=== PATIENT | male | born 1960 | race Caucasian/White ===

== ENCOUNTER → 2017-08-18 13:00 | Day surgery (SDC) | payer OTHER, SELFPAY ==
[2017-08-18 13:43] VITALS: BP 131/84; PULSE 60; RESP 18; TEMP 36.8; O2SAT 95; BMI 26.5
[2017-08-18 14:09] VITALS: BP 147/87; PULSE 65; RESP 18; O2SAT 96
[2017-08-18 14:10] VITALS: BP 139/74; PULSE 64; RESP 18
--- NOTE | 2017-08-18 14:15 | HMH.PMPROC ---
- Procedure Date: 08/18/17 Time: 14:15 Anesthesiologist:: Javier Hernandez MD Complications:: None Pre-procedure Diagnosis:: Degenerative disc disease of lumbar spine multiple levels with lumbar postlaminectomy syndrome Post-procedure Diagnosis:: Same Indications for Procedure:: Patient is a pleasant 57-year-old white male who we are treating for low back pain with lumbar radiculopathy symptoms and postlaminectomy syndrome. He has an intrathecal morphine pain pump currently going at 3.75 mg per day. He is doing well with his pump. However he has had some increasing hip and leg pain. He has increased radicular symptoms in the right hip and right leg radiating the right ankle. We have with a lumbar MRI. He did have his MRI today. We will follow-up on his MRI and refill his pain pump today. He does have an antalgic gait. Motor strength of the lower extremities is 5/5. There is no gross sensory deficit. Procedure Details:: Pump Refill Informed consent was obtained and the risks and benefits of the procedure was explained to the patient. The patient was taken to the procedure room. The pump was interrogated. The area over the pump was prepped using ChloraPrep. The pump was accessed with a 22-gauge needle. Approximately 6 mL's of the intrathecal solution was withdrawn and discarded. The pump was then refilled with 20 mL's of intrathecal morphine 25 mg per ml. The pump was interrogated and the infusion was continued at 3.75 mg/day. The patient tolerated the procedure well with no complication. Plan and Disposition:: We will follow-up on his MRI and see him back in 2 weeks to reassess his symptoms. We will also refill his gabapentin 600 mg 1 tablet 3 times a day. I will give him 3 refills on his gabapentin.
[2017-08-18 14:22] VITALS: BP 147/93; PULSE 63; RESP 18; TEMP 36.8; O2SAT 99
== END ==
PROVIDERS: Family Provider Family Medicine; PCP Family Medicine; Visit Provider Anesthesiology
DX: M51.16 Intervertebral disc disorders with radiculopathy, lumbar region (principal); M96.1 Postlaminectomy syndrome, not elsewhere classified
CPT/HCPCS: 95991

== ENCOUNTER → 2017-09-11 13:41 | Outpatient (POV) | payer OTHER, SELFPAY ==
[2017-09-11 14:45] VITALS: BP 149/98; PULSE 71; RESP 18; O2SAT 97; BMI 29.0
--- NOTE | 2017-09-11 14:58 | P.CONS_ITS ---
[facility] Pain Management SOAP Note Subjective:: This patient is a pleasant 57-year-old white male who we previously been treating for low back pain with lumbar radiculopathy symptoms and postlaminectomy syndrome. He currently has an intrathecal morphine pain pump going at 3.75 mg per day. He recently had an MRI because he is having some increasing low back pain. His MRI is essentially unchanged. He does show previous laminectomies at L3, L4 and L5. He does not have any acute process other than worsening of his degenerative arthritis. He does have tenderness over both SI joints with some radiation into the groin. I do believe that he would benefit from bilateral SI joint injections under fluoroscopy. He does have positive Lima's test bilaterally. Objective:: Alert and oriented ?3 in no acute distress. Patient has an antalgic gait. Tenderness over both SI joints. Positive Lima's test bilaterally. Motor strength of the lower extremities is 5/5. There is no sensory deficit. Assessment:: Degenerative disc disease of lumbar spine with lumbar radiculopathy symptoms and postlaminectomy syndrome. Bilateral sacroiliitis Plan:: We will seek approval and plan on bilateral SI joint injections under fluoroscopy. We will keep his intrathecal morphine pain pump at 3.75 mg per day. Will follow up with him after these injections.
== END ==
PROVIDERS: Family Provider Family Medicine; PCP Family Medicine; Visit Provider Anesthesiology
DX: M54.16 Radiculopathy, lumbar region (principal); M46.1 Sacroiliitis, not elsewhere classified
CPT/HCPCS: 99212

== ENCOUNTER 2017-09-20 12:47 | Day surgery (SDC) | payer OTHER, SELFPAY ==
[2017-09-20 13:36] VITALS: BP 146/80; PULSE 62; RESP 18; TEMP 36.7; O2SAT 98; BMI 29.8
[2017-09-20 13:43] LABS: POC Glucose,Bedside 144 mg/dL (70-110)
[2017-09-20 13:58] VITALS: BP 167/69; PULSE 62; RESP 18
[2017-09-20 13:59] VITALS: BP 165/70; PULSE 65; RESP 20
--- NOTE | 2017-09-20 14:02 | HMH.PMPROC ---
- Procedure Date: 09/20/17 Time: 14:02 Anesthesiologist:: Javier Hernandez MD Complications:: None Pre-procedure Diagnosis:: Sacroiliitis Post-procedure Diagnosis:: Same Indications for Procedure:: This patient is a pleasant 57-year-old white male who we have been treating for low back pain with lumbar radiculopathy symptoms and postlaminectomy syndrome. He currently has an intrathecal morphine pain pump in place. He is doing well with his pain pump. He has developed pain over both hips. He is tender over both SI joints. He does have a positive Lima's test bilaterally. We will do bilateral SI joint injections under fluoroscopy today. Procedure Details:: B/L SI joint injection under fluoroscopy Informed consent was obtained and the risks and benefits of the procedure was explained to the patient. The patient was taken to the procedure room and placed prone on the procedure table. The patient was prepped using ChloraPrep. The skin and subcutaneous tissues overlying the SI joints were anesthetized using lidocaine. I placed a 22-gauge needle first in the left SI joint and second in the right SI joint. Needle placement was confirmed with dye. After this we injected 5 mL bupivacaine 0.25% and Depo-Medrol 40 mg into each SI joint. Patient tolerated the procedure well with no complication. Plan and Disposition:: We will follow-up with him in 2 weeks. We will reevaluate his symptoms at that time.
[2017-09-20 16:55] VITALS: BP 144/85; PULSE 60; RESP 16; O2SAT 97
== END 2017-09-20 14:07 | disposition home or self-care (01) ==
PROVIDERS: Family Provider Family Medicine; PCP Family Medicine; Visit Provider Anesthesiology
DX: M46.1 Sacroiliitis, not elsewhere classified (principal)
CPT/HCPCS: 27096; 82962; G0260; J1030; Q9966

== ENCOUNTER → 2017-10-10 10:36 | Outpatient (POV) | payer OTHER, SELFPAY ==
[2017-10-10 10:54] VITALS: BP 164/90; PULSE 61; RESP 20; BMI 29.9
--- NOTE | 2017-10-10 12:37 | HMH.PAINSOAP ---
[facility] Pain Management SOAP Note Subjective:: Is a very pleasant 57-year-old white male who we have been treating for low back pain with lumbar radiculopathy symptoms and postlaminectomy syndrome. He currently has an intrathecal morphine pain pump going at 3.75 mg a day. He following up after bilateral SI joint injections. He said the right side has significantly improved however the left side is about the same. Patient is interested in weaning down on his intrathecal pain pump due to liver issues along with low testosterone. Patient is also interested in using a neurostimulator for improved pain relief of his bilateral lower leg pain. ROS General: no recent weight change, no fever, no sleep disturbances Respiratory: no cough, no shortness of air, no recurring pulmonary infections Cardiovascular/Peripheral Vascular: No chest pain, No palpitations, no edema, no shortness of breath. Gastrointestinal: no incontinence, normal bowel movements reported Genitourinary: no incontinence Musculoskeletal: Back pain, bilateral leg pain, bilateral SI joint pain Psychiatric: normal mood/ affect, [denies depression], [denies anxiety] Neurological: [denies weakness in extremities], [denies balance issues] Objective:: Physical Exam General: Alert and oriented x3, no acute distress, pleasant and cooperative, [on room air] Lungs: Resps E/U, Symmetrical chest expansion, Eyes: PERRL Musculoskeletal: Flexion and extension of lumbar spine somewhat guarded secondary to pain, deep tendon reflexes normal, strength in upper and lower extremities [5/5], antalgic gait noted, bilateral Lima's test positive., Straight leg raise test positive bilaterally at 30?. Neurological: speech clear, five piece expansion maker hand equal, no gross sensory deficits Assessment:: Degenerative disc disease of the lumbar spine with lumbar radiculopathy, sacroiliitis, postlaminectomy syndrome Plan:: We will send this patient to Dr. Gunn for psychological evaluation for a stimulator trial. We will also ask Dr. Gunn presents with a potential opioid reset program so we can begin to wean the patient's pump. We will wean the patient's pump and may be utilized Prialt in the pump after he has been taken off of the medication. Patient and I had a long discussion about this. We will set him up for a neurostimulator trial. As tried and failed medications, anti-inflammatories, physical therapy, and injective therapy. Patient is not on any anticoagulation therapy. This note was dictated using voice recognition software and may contain errors or omissions
--- NOTE | 2017-10-10 12:41 | P.CONS_ITS ---
[facility] Pain Management SOAP Note Subjective:: Is a very pleasant 57-year-old white male who we have been treating for low back pain with lumbar radiculopathy symptoms and postlaminectomy syndrome. He currently has an intrathecal morphine pain pump going at 3.75 mg a day. He following up after bilateral SI joint injections. He said the right side has significantly improved however the left side is about the same. Patient is interested in weaning down on his intrathecal pain pump due to liver issues along with low testosterone. Patient is also interested in using a neurostimulator for improved pain relief of his bilateral lower leg pain. ROS General: no recent weight change, no fever, no sleep disturbances Respiratory: no cough, no shortness of air, no recurring pulmonary infections Cardiovascular/Peripheral Vascular: No chest pain, No palpitations, no edema, no shortness of breath. Gastrointestinal: no incontinence, normal bowel movements reported Genitourinary: no incontinence Musculoskeletal: Back pain, bilateral leg pain, bilateral SI joint pain Psychiatric: normal mood/ affect, [denies depression], [denies anxiety] Neurological: [denies weakness in extremities], [denies balance issues] Objective:: Physical Exam General: Alert and oriented x3, no acute distress, pleasant and cooperative, [ on room air] Lungs: Resps E/U, Symmetrical chest expansion, Eyes: PERRL Musculoskeletal: Flexion and extension of lumbar spine somewhat guarded secondary to pain, deep tendon reflexes normal, strength in upper and lower extremities [5/5], antalgic gait noted, bilateral Lima's test positive., Straight leg raise test positive bilaterally at 30?. Neurological: speech clear, social work program coordinator equal, no gross sensory deficits Assessment:: Degenerative disc disease of the lumbar spine with lumbar radiculopathy, sacroiliitis, postlaminectomy syndrome Plan:: We will send this patient to Dr. Gunn for psychological evaluation for a stimulator trial. We will also ask Dr. Gunn presents with a potential opioid reset program so we can begin to wean the patient's pump. We will wean the patient's pump and may be utilized Prialt in the pump after he has been taken off of the medication. Patient and I had a long discussion about this. We will set him up for a neurostimulator trial. As tried and failed medications, anti-inflammatories, physical therapy, and injective therapy. Patient is not on any anticoagulation therapy. This note was dictated using voice recognition software and may contain errors or omissions
== END ==
PROVIDERS: Family Provider Family Medicine; PCP Family Medicine; Visit Provider Clinical Nurse Specialist Family Health
DX: M54.16 Radiculopathy, lumbar region (principal)
CPT/HCPCS: 99212

== ENCOUNTER → 2018-09-04 08:47 | Outpatient (POV) | payer OTHER, SELFPAY ==
[2018-09-04 09:04] VITALS: BP 143/92; PULSE 64; RESP 18; O2SAT 98; BMI 29.0
--- NOTE | 2018-09-04 09:19 | HMH.PMPROC ---
- Procedure Date: 09/04/18 Time: 09: Anesthesiologist:: Mihaela Gilmore APRN Complications:: None Pre-procedure Diagnosis:: Degenerative disc disease lumbar spine with lumbar radiculopathy Post-procedure Diagnosis:: Same Indications for Procedure:: Patient is a pleasant 58-year-old white male who presents today for intrathecal pain pump reprogram. Patient is decreasing his morphine infusion with the hope to be weaned off. Patient is currently at 2.7 mg a day. He rates his pain a 3 out of 10. We will decrease him to 2 mg/day. Patient is having some extra numbness and tingling in his legs. Patient is currently on gabapentin 600 mg 1 p.o. 3 times daily. He is also on Cymbalta 30 mg. We discussed him increasing this to 60 mg. Patient can talk to his primary care physician about this. Physical Exam General: Alert and oriented x3, no acute distress, pleasant and cooperative, [on room air] Lungs: Resps E/U, Symmetrical chest expansion, Eyes: PERRL Musculoskeletal: Flexion and extension of lumbar spine somewhat guarded secondary to pain, deep tendon reflexes normal, strength in upper and lower extremities [5/5], slightly antalgic gait noted Neurological: speech clear, product safety manager equal, no gross sensory deficits Procedure Details:: Informed consent was obtained and the risk and benefits of the procedure were explained to the patient. The patient was taken to the procedure room where noninvasive monitoring was placed including noninvasive blood pressure cuff and pulse oximeter. Patient's pump was interrogated and reprogrammed. The infusion rate was decreased to 2 mg of morphine a day. The patient tolerated the procedure well. Plan and Disposition:: I will follow-up with the patient in 1 month and reassess his symptoms at that time we will decrease him even further to 1.5 mg/day. Patient is been instructed to call the office if he has any issues prior to his next appointment. Dr. Hernandez has reviewed this note and agrees with this plan of care. This note was dictated using voice recognition software and may contain errors or omissions
--- NOTE | 2018-10-03 11:50 | PC.NURSE ---
refills for Gabapentin 600mg tid with 2 refills faxed to [facility] per provider order
== END ==
PROVIDERS: PCP Family Medicine; Visit Provider Clinical Nurse Specialist Family Health
DX: M51.16 Intervertebral disc disorders with radiculopathy, lumbar region (principal)
CPT/HCPCS: 62368

== ENCOUNTER → 2018-10-09 09:12 | Outpatient (POV) | payer OTHER, SELFPAY ==
[2018-10-09 09:39] VITALS: BP 146/86; PULSE 64; RESP 18; O2SAT 98; BMI 29.0
--- NOTE | 2018-10-09 09:44 | P.PCN_ITS ---
- Procedure Date: 10/09/18 Time: 09:42 Anesthesiologist:: Mihaela Gilmore APRN Complications:: None Pre-procedure Diagnosis:: Degenerative disc disease lumbar spine with lumbar radiculopathy Post-procedure Diagnosis:: Same Indications for Procedure:: the patient is a pleasant 58-year-old white male who presents today for intrathecal pain pump reprogram. Patient is decreasing his morphine infusion with hopes of being weaned off. He is currently out of 2 mg a day and rates his pain a 5 out of 10. Patient is currently on gabapentin we discussed increasing his Cymbalta at his last visit however hit him and his primary care and get a hold off on this at this time. Physical Exam General: Alert and oriented x3, no acute distress, pleasant and cooperative, [on room air] Lungs: Resps E/U, Symmetrical chest expansion, Eyes: PERRL Musculoskeletal: Flexion and extension of lumbar spine somewhat guarded secondary to pain, deep tendon reflexes normal, strength in upper and lower extremities [5/5], [abnormal gait noted] Neurological: speech clear, cash management associate equal, no gross sensory deficits Procedure Details:: Informed consent was obtained and the risk and benefits of the procedure were explained to the patient. The patient was taken to the procedure room where noninvasive monitoring was placed including noninvasive blood pressure cuff and pulse oximeter. Patient's pump was interrogated and reprogrammed. The infusion rate was decreased to 1.5 mg of morphine a day. The patient tolerated the procedure well. Plan and Disposition:: I will see the patient back in 1 month and we can decrease him at that time to 1 mg a day. Patient's been instructed to call the office if he has any issues prior to his next appointment. Dr. Hernandez has reviewed this note and agrees with this plan of care. This note was dictated using voice recognition software and may contain errors or omissions
== END ==
PROVIDERS: PCP Family Medicine; Visit Provider Clinical Nurse Specialist Family Health
DX: M51.16 Intervertebral disc disorders with radiculopathy, lumbar region (principal)
CPT/HCPCS: 62368

== ENCOUNTER → 2018-11-05 09:01 | Outpatient (POV) | payer OTHER, SELFPAY ==
[2018-11-05 09:10] VITALS: BP 145/79; PULSE 66; RESP 18; O2SAT 98; BMI 29.0
--- NOTE | 2018-11-05 09:21 | HMH.PAINSOAP ---
[facility] Pain Management SOAP Note Subjective:: he is a pleasant 58-year-old white male who presents today for intrathecal pain pump reprogram. Patient is not doing as well has he has been. Patient states his pain is the same but it is just intensified. Patient is now down to 1.5 mg a day of morphine. Patient and I discussed how to move forward. Patient is having difficulty sleeping. He rates his pain a 6 out of 10. Mostly in his low back and down his leg. Patient's ultimate goal is to have a stimulator due to side effects in regards to his pain pump. ROS General: no recent weight change, no fever, no sleep disturbances Respiratory: no cough, no shortness of air, no recurring pulmonary infections Cardiovascular/Peripheral Vascular: No chest pain, No palpitations, no edema, no shortness of breath. Gastrointestinal: no incontinence, normal bowel movements reported Genitourinary: no incontinence Musculoskeletal: Back pain, leg pain Psychiatric: normal mood/ affect Neurological: [denies weakness in extremities], [denies balance issues] Objective:: Physical Exam General: Alert and oriented x3, no acute distress, pleasant and cooperative, [on room air] Lungs: Resps E/U, Symmetrical chest expansion, Eyes: PERRL Musculoskeletal: Flexion and extension of lumbar spine somewhat guarded secondary to pain, deep tendon reflexes normal, strength in upper and lower extremities [5/5], positive straight leg raise test on the right side at 30 degrees Neurological: speech clear, mathematical engineer equal, no gross sensory deficits Assessment:: degenerative disc disease lumbar spine with lumbar radiculopathy Plan:: We will set the patient up for a L4-L5 lumbar epidural steroid injection given his increased pain. Will call in Flexeril 10 mg 1 p.o. nightly. We will also potentially discuss the neurostimulator trial since he is having side effects to his pain pump and it needs to be removed. I believe the stimulator may be beneficial in the process of weaning him off of his pump. Patient is on Plavix we will see if he can come off of this prior to his injection. Dr. Hernandez has reviewed this note and agrees with this plan of care. This note was dictated using voice recognition software and may contain errors or omissions
--- NOTE | 2018-11-05 09:25 | P.CONS_ITS ---
[facility] Pain Management SOAP Note Subjective:: he is a pleasant 58-year-old white male who presents today for intrathecal pain pump reprogram. Patient is not doing as well has he has been. Patient states his pain is the same but it is just intensified. Patient is now down to 1.5 mg a day of morphine. Patient and I discussed how to move forward. Patient is having difficulty sleeping. He rates his pain a 6 out of 10. Mostly in his low back and down his leg. Patient's ultimate goal is to have a stimulator due to side effects in regards to his pain pump. ROS General: no recent weight change, no fever, no sleep disturbances Respiratory: no cough, no shortness of air, no recurring pulmonary infections Cardiovascular/Peripheral Vascular: No chest pain, No palpitations, no edema, no shortness of breath. Gastrointestinal: no incontinence, normal bowel movements reported Genitourinary: no incontinence Musculoskeletal: Back pain, leg pain Psychiatric: normal mood/ affect Neurological: [denies weakness in extremities], [denies balance issues] Objective:: Physical Exam General: Alert and oriented x3, no acute distress, pleasant and cooperative, [on room air] Lungs: Resps E/U, Symmetrical chest expansion, Eyes: PERRL Musculoskeletal: Flexion and extension of lumbar spine somewhat guarded sec ondary to pain, deep tendon reflexes normal, strength in upper and lower extremities [5/5], positive straight leg raise test on the right side at 30 degrees Neurological: speech clear, automotive glass technician equal, no gross sensory deficits Assessment:: degenerative disc disease lumbar spine with lumbar radiculopathy Plan:: We will set the patient up for a L4-L5 lumbar epidural steroid injection given his increased pain. Will call in Flexeril 10 mg 1 p.o. nightly. We will also potentially discuss the neurostimulator trial since he is having side effects to his pain pump and it needs to be removed. I believe the stimulator may be beneficial in the process of weaning him off of his pump. Patient is on Plavix we will see if he can come off of this prior to his injection. Dr. Hernandez has reviewed this note and agrees with this plan of care. This note was dictated using voice recognition software and may contain errors or omissions
--- NOTE | 2018-11-08 14:54 | PC.NURSE ---
SPOKE WITH SOFIA FROM DR AVERY'S OFFICE. PT IS NOT CLEARED TO COME OFF OF HIS PLAVIX AT THIS TIME. MD WOULD PREFER HE BE ON PLAVIX ONE YEAR PRIOR TO EPIDURAL INJECTION.
--- NOTE | 2019-04-08 11:45 | PC.NURSE ---
FLEXERIL 10MG QHS, GABAPENTIN 600MG TID WITH 2 REFILLS FAXED TO [facility] PER PROVIDER ORDER
== END ==
PROVIDERS: PCP Family Medicine; Visit Provider Clinical Nurse Specialist Family Health
DX: M51.16 Intervertebral disc disorders with radiculopathy, lumbar region (principal)
CPT/HCPCS: 62368

== ENCOUNTER 2018-11-27 12:51 | Day surgery (SDC) | payer OTHER, SELFPAY ==
[2018-11-27 13:05] VITALS: BP 158/84; PULSE 51; RESP 18; O2SAT 97; BMI 29.0
[2018-11-27 13:17] VITALS: BP 144/80; PULSE 65; RESP 18; O2SAT 98
[2018-11-27 13:18] VITALS: BP 145/87; PULSE 64; RESP 18; O2SAT 99
--- NOTE | 2018-11-27 13:21 | HMH.PMPROC ---
- Procedure Date: 11/27/18 Time: 13:21 Anesthesiologist:: Mihalea Gilmore APRN Complications:: None Pre-procedure Diagnosis:: Degenerative disc disease with lumbar radiculopathy Post-procedure Diagnosis:: Same Indications for Procedure:: Patient is a pleasant 58-year-old white male who presents today for intrathecal pain pump refill and reprogram. We were weaning him off of his pain pump for neurostimulator however he is unable to come off of his Plavix for at least a year before we can do a stimulator trial. Patient is having increased pain we will increase his pain pump today. He is currently on 1.5 mg a day morphine infusion. Patient is not having any side effects. Patient [facility] #[id number] reviewed and appropriate. He is also on gabapentin 600 mg 1 p.o. 3 times daily. Physical Exam General: Alert and oriented x3, no acute distress, pleasant and cooperative, [on room air] Lungs: Resps E/U, Symmetrical chest expansion, Eyes: PERRL Musculoskeletal: Flexion and extension of lumbar spine somewhat guarded secondary to pain, deep tendon reflexes normal, strength in upper and lower extremities [5/5], [abnormal gait noted] Neurological: speech clear, director of assessment equal, no gross sensory deficits Procedure Details:: Informed consent was obtained and the risk and benefits of the procedure were explained to the patient. The patient was taken to the procedure room where noninvasive monitoring was placed including noninvasive blood pressure cuff and pulse oximeter. Patient's pump was interrogated. The area over the pump was cleansed with chlorhexidine as a cleansing solution. In sterile fashion the pump was accessed with a 22-gauge needle. Approximately 10 mL's were removed of the pump solution and discarded appropriately. The pump was then refilled with 20 mL's of morphine 25 mg/mL. The needle was withdrawn and a bandage was placed over the puncture site. The infusion rate was reprogrammed to 2 mg/day. The patient tolerated the procedure well. Plan and Disposition:: I will plan on seeing the patient back at his next intrathecal pain pump refill and reprogram his been instructed to call the office if he has any issues prior to his next appointment. Dr. Hernandez has reviewed this note and agrees with this plan of care. This note was dictated using voice recognition software and may contain errors or omissions
--- NOTE | 2018-11-27 13:24 | P.PCN_ITS ---
- Procedure Date: 11/27/18 Time: 13:21 Anesthesiologist:: Mihaela Gilmore APRN Complications:: None Pre-procedure Diagnosis:: Degenerative disc disease with lumbar radiculopathy Post-procedure Diagnosis:: Same Indications for Procedure:: Patient is a pleasant 58-year-old white male who presents today for intrathecal pain pump refill and reprogram. We were weaning him off of his pain pump for neurostimulator however he is unable to come off of his Plavix for at least a year before we can do a stimulator trial. Patient is having increased pain we will increase his pain pump today. He is currently on 1.5 mg a day morphine infusion. Patient is not having any side effects. Patient [facility] [place] #[id number] reviewed and appropriate. He is also on gabapentin 600 mg 1 p.o. 3 times daily. Physical Exam General: Alert and oriented x3, no acute distress, pleasant and cooperative, [on room air] Lungs: Resps E/U, Symmetrical chest expansion, Eyes: PERRL Musculoskeletal: Flexion and extension of lumbar spine somewhat guarded secondary to pain, deep tendon reflexes normal, strength in upper and lower extremities [5/5], [abnormal gait noted] Neurological: speech clear, robotics software engineer equal, no gross sensory deficits Procedure Details:: Informed consent was obtained and the risk and benefits of the procedure were explained to the patient. The patient was taken to the procedure room where noninvasive monitoring was placed including noninvasive blood pressure cuff and pulse oximeter. Patient's pump was interrogated. The area over the pump was cleansed with chlorhexidine as a cleansing solution. In sterile fashion the pump was accessed with a 22-gauge needle. Approximately 10 mL's were removed of the pump solution and discarded appropriately. The pump was then refilled with 20 mL's of morphine 25 mg/mL. The needle was withdrawn and a bandage was placed over the puncture site. The infusion rate was reprogrammed to 2 mg/day. The patient tolerated the procedure well. Plan and Disposition:: I will plan on seeing the patient back at his next intrathecal pain pump refill and reprogram his been instructed to call the office if he has any issues prior to his next appointment. Dr. Hernandez has reviewed this note and agrees with this plan of care. This note was dictated using voice recognition software and may contain errors or omissions
[2018-11-27 13:28] VITALS: BP 137/74; PULSE 64; RESP 18; O2SAT 97
== END 2018-11-27 13:29 | disposition home or self-care (01) ==
LOC: SC.PAINP 12:52
PROVIDERS: PCP Family Medicine; Visit Provider Clinical Nurse Specialist Family Health
DX: M51.16 Intervertebral disc disorders with radiculopathy, lumbar region (principal)
CPT/HCPCS: 62370

== ENCOUNTER → 2019-04-02 10:47 | Outpatient (CLI) | payer OTHER, SELFPAY ==
[2019-04-02 14:17] LABS: Amphetamine/Metha Screen,Urine Negative ng/mL (<1000); Barbiturates Screen,Urine Negative ng/mL (<200); Benzodiazepines Screen,Urine Negative ng/mL (<200); Cannabinoid Screen,Urine Negative ng/mL (<50); Cocaine Screen,Urine Negative ng/mL (<300); Methadone Screen,Urine Negative ng/mL (<300); Opiate Screen,Urine Positive ng/mL (<300); Phencyclidine Screen,Urine Negative ng/mL (<25)
[2019-04-07 09:24] LABS: Codeine Negative (Cutoff=100); Hydrocodone Negative (Cutoff=100); Hydromorphone Negative (Cutoff=100); Morphine Positive (.)
[2019-04-07 17:19] LABS: Opiates Positive (.)
== END ==
PROVIDERS: Visit Provider Clinical Nurse Specialist Family Health
DX: Z79.899 Other long term (current) drug therapy (principal)
CPT/HCPCS: 80305; 80361; 80365; G0480

== ENCOUNTER 2019-11-12 12:57 | Day surgery (SDC) | payer OTHER, SELFPAY ==
[2019-11-12 13:14] VITALS: BP 126/75; PULSE 76; RESP 18; O2SAT 98; BMI 29.0
[2019-11-12 13:32] VITALS: BP 115/71; PULSE 72; RESP 18
[2019-11-12 13:33] VITALS: BP 118/85; PULSE 70; RESP 18; TEMP 36.8; O2SAT 98
--- NOTE | 2019-11-12 13:42 | P.PCN_ITS ---
- Procedure Date: 11/12/19 Time: 13:42 Anesthesiologist:: Mihaela Gilmore APRN Complications:: None Pre-procedure Diagnosis:: Degenerative disc disease lumbar spine with lumbar radiculopathy, postlaminectomy syndrome, failed back syndrome Post-procedure Diagnosis:: Same Indications for Procedure:: Patient is a pleasant 59-year-old white male who presents today for intrathecal pain pump refill and reprogram. He has low back pain secondary to failed back syndrome. Patient does have an intrathecal pain pump however it stopped decreasing and taking care of all of his pain. His pain is gotten worse and worse. He is done physical therapy. He is interested in a neurostimulator which I do believe would be beneficial he has been on Plavix and can come off of this prior to trial. He is currently on a morphine infusion of 2.5 mg/day however he needs an increase today [facility] reviewed and appropriate. [facility] #[id number]. Physical Exam General: Alert and oriented x3, no acute distress, pleasant and cooperative, [on room air] Lungs: Resps E/U, Symmetrical chest expansion, Eyes: PERRL Musculoskeletal: Flexion and extension of lumbar spine somewhat guarded secondary to pain, deep tendon reflexes normal, strength in upper and lower extremities [5/5], [abnormal gait noted] Neurological: speech clear, food and beverage attendant equal, no gross sensory deficits Procedure Details:: Informed consent was obtained and the risk and benefits of the procedure were explained to the patient. The patient was taken to the procedure room where noninvasive monitoring was placed including noninvasive blood pressure cuff and pulse oximeter. Patient's pump was interrogated. The area over the pump was cleansed with chlorhexidine as a cleansing solution. In sterile fashion the pump was accessed with a 22-gauge needle. Approximately 8.5 mL's were removed of the pump solution and discarded appropriately. The pump was then refilled with 20 mL's of morphine 25 mg/mL. The needle was withdrawn and a bandage was placed over the puncture site. The infusion rate was reprogrammed to 3 mg of morphine a day. The patient tolerated the procedure well. Plan and Disposition:: We will set the patient up for a neurostimulator trial I will follow-up with him after this reassess his symptoms at that time he has been instructed to call the office if he has any issues prior to his next appointment. Dr. Hernandez has reviewed this note and agrees with this plan of care. This note was dictated using voice recognition software and may contain errors or omissions
[2019-11-12 13:47] VITALS: BP 116/72; PULSE 71; RESP 18; O2SAT 98
== END 2019-11-12 13:50 | disposition home or self-care (01) ==
LOC: SC.PAINP 12:58
PROVIDERS: PCP Family Medicine; Visit Provider Clinical Nurse Specialist Family Health
DX: M51.16 Intervertebral disc disorders with radiculopathy, lumbar region (principal); M96.1 Postlaminectomy syndrome, not elsewhere classified; Z87.39 Personal history of other diseases of the musculoskeletal system and connective tissue
CPT/HCPCS: 62370

== ENCOUNTER 2020-03-23 14:40 | Day surgery (SDC) | payer OTHER, SELFPAY ==
[2020-03-23 14:48] VITALS: BP 141/76; PULSE 64; RESP 19; TEMP 36.7; O2SAT 99; BMI 29.0
[2020-03-23 15:09] VITALS: BP 115/72; PULSE 62; RESP 18; O2SAT 98
--- NOTE | 2020-03-23 15:11 | HMH.PMPROC ---
- Procedure Date: 03/23/20 Time: 15:11 Anesthesiologist:: Mihaela Gilmore APRN Complications:: None Pre-procedure Diagnosis:: Degenerative disc disease lumbar spine lumbar radiculopathy Post-procedure Diagnosis:: Same Indications for Procedure:: Patient is a pleasant 59-year-old white male who presents today for intrathecal pain pump refill and reprogram. He is currently on morphine 3 mg/day. He denies side effects with medication. Patient's [facility] reviewed and appropriate. Drug screens have been appropriate. Patient rates his pain today 4 out of 10. Physical Exam General: Alert and oriented x3, no acute distress, pleasant and cooperative, [on room air] Lungs: Resps E/U, Symmetrical chest expansion, Eyes: PERRL Musculoskeletal: Flexion and extension of lumbar spine somewhat guarded secondary to pain, deep tendon reflexes normal, strength in upper and lower extremities [5/5], [abnormal gait noted] Neurological: speech clear, milling supervisor equal, no gross sensory deficits Procedure Details:: Informed consent was obtained and the risk and benefits of the procedure were explained to the patient. The patient was taken to the procedure room where noninvasive monitoring was placed including noninvasive blood pressure cuff and pulse oximeter. Patient's pump was interrogated. The area over the pump was cleansed with chlorhexidine as a cleansing solution. In sterile fashion the pump was accessed with a 22-gauge needle. Approximately 4 mL's were removed of the pump solution and discarded appropriately. The pump was then refilled with 20 mL's of morphine 25 mg/mL. The needle was withdrawn and a bandage was placed over the puncture site. The infusion rate was reprogrammed to continue at 3 mg/day. The patient tolerated the procedure well. Plan and Disposition:: The patient back at his next intrathecal pain pump refill and reprogram he has been instructed to call the office if he has any issues prior to his next appointment. Patient has been on morphine for quite some time we will plan on switching him to Dilaudid 5 mg/mL and start him at 1 mg/day. Dr. Hernandez has reviewed this note and agrees with this plan of care. This note was dictated using voice recognition software and may contain errors or omissions
[2020-03-23 15:20] VITALS: BP 118/75; PULSE 85; RESP 18; O2SAT 98
[2020-03-23 15:35] VITALS: BP 148/79; PULSE 61; RESP 18; O2SAT 99
== END 2020-03-23 15:36 | disposition home or self-care (01) ==
PROVIDERS: PCP Family Medicine; Visit Provider Clinical Nurse Specialist Family Health
DX: M51.16 Intervertebral disc disorders with radiculopathy, lumbar region (principal); I25.10 Atherosclerotic heart disease of native coronary artery without angina pectoris; I10 Essential (primary) hypertension; E78.5 Hyperlipidemia, unspecified; K21.9 Gastro-esophageal reflux disease without esophagitis; F41.9 Anxiety disorder, unspecified; F32.9 Major depressive disorder, single episode, unspecified; Z95.818 Presence of other cardiac implants and grafts; Z88.8 Allergy status to other drugs, medicaments and biological substances; Z79.82 Long term (current) use of aspirin; Z79.899 Other long term (current) drug therapy; Z79.4 Long term (current) use of insulin
CPT/HCPCS: 95991

== ENCOUNTER 2020-06-22 12:55 | Day surgery (SDC) | payer OTHER, SELFPAY ==
[2020-06-22 12:58] VITALS: BP 123/67; PULSE 77; RESP 18; TEMP 36.7; O2SAT 98; BMI 29.0
[2020-06-22 13:05] VITALS: BP 126/64; PULSE 75; RESP 18; TEMP 36.4; O2SAT 100
[2020-06-22 13:18] VITALS: BP 130/78; PULSE 74; RESP 18; O2SAT 100
--- NOTE | 2020-06-22 13:23 | P.PCN_ITS ---
- Procedure Date: 06/22/20 Time: 13:23 Anesthesiologist:: Mihaela Gilmore APRN Complications:: None Pre-procedure Diagnosis:: Degenerative disc disease lumbar spine lumbar radiculopathy Post-procedure Diagnosis:: Same Indications for Procedure:: Patient is a pleasant 59-year-old white male who presents today for intrathecal pain pump refill and reprogram. Patient rates his pain today 5 out of 10. Patient and I discussed at his last visit about switching his morphine to Dilaudid. He would like to move forward with this. Drug screens have been appropriate. [facility] #[id number] reviewed and appropriate. He is also on gabapentin 600 mg 1 p.o. 3 times daily. Physical Exam General: Alert and oriented x3, no acute distress, pleasant and cooperative, [on room air] Lungs: Resps E/U, Symmetrical chest expansion, Eyes: PERRL Musculoskeletal: Flexion and extension of bar spine somewhat guarded secondary to pain, deep tendon reflexes normal, strength in upper and lower extremities [5/5], [abnormal gait noted] Neurological: speech clear, materials planner/production planner equal, no gross sensory deficits Procedure Details:: Informed consent was obtained and the risk and benefits of the procedure were explained to the patient. The patient was taken to the procedure room where noninvasive monitoring was placed including noninvasive blood pressure cuff and pulse oximeter. Patient's pump was interrogated. The area over the pump was cleansed with chlorhexidine as a cleansing solution. In sterile fashion the pump was accessed with a 22-gauge needle. Approximately 9 mL's were removed of the pump solution and discarded appropriately. The pump was then refilled with 20 mL's of hydromorphone 5 mg/mL. The needle was withdrawn and a bandage was placed over the puncture site. The infusion rate was reprogrammed to started at 0.5 milligrams per day. The patient tolerated the procedure well. Plan and Disposition:: I will see the patient back in 2 weeks for any titrations. Patient's been instructed to call the office if he has any issues prior to his next appointment. Dr. Hernandez has reviewed this note and agrees with this plan of care. This note was dictated using voice recognition software and may contain errors or omissions
[2020-06-22 13:35] VITALS: BP 115/66; PULSE 79; RESP 18; O2SAT 98
== END 2020-06-22 13:35 | disposition home or self-care (01) ==
LOC: SC.PAINP 12:57
PROVIDERS: PCP Family Medicine; Visit Provider Clinical Nurse Specialist Family Health
DX: M51.16 Intervertebral disc disorders with radiculopathy, lumbar region (principal); I10 Essential (primary) hypertension; E11.9 Type 2 diabetes mellitus without complications; Z86.73 Personal history of transient ischemic attack (TIA), and cerebral infarction without residual deficits; Z88.8 Allergy status to other drugs, medicaments and biological substances
CPT/HCPCS: 62370

== ENCOUNTER → 2020-07-06 11:33 | Outpatient (POV) | payer OTHER, SELFPAY ==
[2020-07-06 12:14] VITALS: BP 135/88; PULSE 74; RESP 18; TEMP 36.8; O2SAT 98; BMI 29.0
--- NOTE | 2020-07-06 12:40 | P.PCN_ITS ---
- Procedure Date: 07/06/20 Time: 12:40 Anesthesiologist:: Mihaela Gilmore APRN Complications:: None Pre-procedure Diagnosis:: Degenerative disc disease lumbar spine lumbar radiculopathy Post-procedure Diagnosis:: Same Indications for Procedure:: Patient is a pleasant 59-year-old white male who presents today for intrathecal pain pump program. Patient is currently on 0.5 mg of Dilaudid. We will increase him today [facility] reviewed and appropriate. He denies any side effects to his medication. Most of his pain is in his low back and legs. Procedure Details:: Informed consent was obtained and the risk and benefits of the procedure were explained to the patient. The patient was taken to the procedure room where noninvasive monitoring was placed including noninvasive blood pressure cuff and pulse oximeter. Patient's pump was interrogated and reprogrammed. The infusion rate was increased to 0.65 mg of Dilaudid a day. The patient tolerated the pro cedure well. Plan and Disposition:: Patient has 4 months left on his intrathecal pain pump battery life we will set him up with Dr. Priya roche for replacement of system. 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 I told him to discuss this with Dr. Priya roche. Patient's been instructed to call the office if he has any issues prior to his next appointment. Dr. Hernandez has reviewed this note and agrees with this plan of care. This note was dictated using voice recognition software and may contain errors or omissions
== END ==
PROVIDERS: PCP Family Medicine; Visit Provider Clinical Nurse Specialist Family Health
DX: M51.16 Intervertebral disc disorders with radiculopathy, lumbar region (principal); Z88.8 Allergy status to other drugs, medicaments and biological substances
CPT/HCPCS: 62368

== ENCOUNTER → 2020-07-15 09:10 | Outpatient (POV) | payer OTHER, SELFPAY ==
[2020-07-15 09:24] VITALS: BP 154/89; PULSE 70; RESP 20; TEMP 36.4; O2SAT 98; BMI 30.7
--- NOTE | 2020-07-15 11:44 | HMH.PMCON ---
Assessment and Plan - Assessment and plan all Dx Assessment and Plan for all problems:: Impression-generative disc disease of the lumbar spine with radiculopathy-pain pump generator nearing end-of-life status Plan-removal and replacement of pain pump generator and catheter in the near future HPI - Data of Consult Patient: new to practice Consult date: 07/15/20 Requesting Physician: Oscar Miller MD Primary Care Provider: Hernán Palumbo - Consult Narrative Reason for consult: Chronic back pain History of present illness: Mr. Aguirre is a 59 year old male who has chronic back pain who is has had a pain pump system in place since 2002 and has been replaced on several occasions.. The patient is entering a status where the generator is nearing end-of-life status and needs to be replaced. CC: Oscar Miller MD [facility] History I have reviewed the patient's past medical history: Yes Medical History: Reports:: Coronary Artery Disease, Diabetes Mellitus Type 1, Hyperlipidemia, Hypertension Denies:: Cancer, Diabetes Mellitus Type 2, MRSA, Seizures *Have you ever received a pneumonia vaccine?: Yes *Have you received a flu vaccine this season?: Yes Other Medical History: Reports: Sinus Problems. Denies: Blood Transfusion Reaction Comment:: Illnesses-hypertension, hyperlipidemia, coronary artery disease, diabetes mellitus, GERD, BPH, liver disease, anxiety and depression Laterality Cases: Right: Other Other Surgeries: Yes: Hernia Repair, Other (hand and knee R sx) Amputation: No Fractures: No Comment: Operations-cardiac cath with stents, hernia repair, right knee surgery, hand surgery, lumbar fusion, pump plate implant 2002 - *Social History Smoking Status: Never smoker Tobacco Type: cigarettes Alcohol Intake: never Alcohol Intake Frequency:: holidays/special occasions only *Occupational Status:: disabled Housing: house Household Members: spouse *Travel in the last 8 weeks: None Family Hx:: Heart Attack, Hyperlipidemia, Hypertension, Stroke Review of Systems - Review of Systems Review of systems:: pertinent systems reviewed and negative unless documented below Meds Home Medications Medication Instructions Recorded Confirmed Type Aspirin [Aspir-Low] 81 mg PO DAILY 09/20/17 07/15/20 History Bisoprolol/Hydrochlorothiazide 3 tab PO DAILY 09/20/17 07/15/20 History [Bisoprolol-Hctz 10-6.25 mg Tab] Duloxetine HCl 60 mg PO DAILY 09/20/17 07/15/20 History Gabapentin [Neurontin 600mg 600 mg PO BID 09/20/17 07/15/20 History tablet] Meloxicam 7.5 mg PO DAILY 09/20/17 07/15/20 History Metformin HCl [Glucophage 500mg 1,000 mg PO BID 09/20/17 07/15/20 History Tablet] Omeprazole [Omeprazole 40mg 40 mg PO DAILY 09/20/17 07/15/20 History Capsule] lisinopriL [Lisinopril 10mg Tab] 10 mg PO DAILY 09/20/17 07/15/20 History Clopidogrel Bisulfate [Plavix 75mg 75 mg PO DAILY 11/27/18 07/15/20 History Tab] Morphine Sulfate 5 mg IT CONT 11/27/18 07/15/20 History Insulin Glargine,Hum.rec.anlog 40 unit SQ DAILY 11/12/19 07/15/20 History [Lantus] glipiZIDE [Glipizide ER] 1 mg PO BID 11/12/19 07/15/20 History Allergies Allergy/AdvReac Type Severity Reaction Status Date / Time atorvastatin [From LIPITOR] Allergy Mild Verified 07/15/20 09:25 Objective Vital signs: Temp Pulse Resp BP Pulse Ox 97.6 F 70 20 154/89 H 98 07/15/20 09:24 07/15/20 09:24 07/15/20 09:24 07/15/20 09:24 07/15/20 09:24 no acute distress - *Routine Respiratory Exam Present: CTA bilaterally - *Routine Cardiovascular Exam Present: RRR - *Routine Abdominal Exam Present: soft
== END ==
PROVIDERS: PCP Family Medicine; Visit Provider Surgery
DX: M51.16 Intervertebral disc disorders with radiculopathy, lumbar region (principal)
CPT/HCPCS: 99212; G0463

== ENCOUNTER 2020-09-09 08:04 | Day surgery (SDC) | payer OTHER, SELFPAY ==
[2020-09-03 14:06] VITALS: BMI 29.0
[2020-09-09] VITALS (7 sets, daily range): BP systolic 107–147; BP diastolic 67–79; PULSE 51–67; RESP 14–18; TEMP 36.3–36.6; O2SAT 95–100
[2020-09-09 08:47] LABS: POC Glucose,Bedside 284 (70-110)
[2020-09-09 09:20] LABS: Basophils # 0.1 K/mm3 (0-0.2); Basophils % 0.9 % (0.1-2.0); Chloride 102 mmol/L (98-107); Eosinophils # 0.1 K/mm3 (0.0-0.4); Eosinophils % 2.2 % (0.1-12.0); Hematocrit 34.9 % (42.0-52.0); Hemoglobin 11.5 g/dL (14.1-18.0); Lymphocytes % 37.8 % (10-50); Mean Corpuscular HGB Conc 32.9 g/dL (31.8-35.4); Mean Corpuscular Hemoglobin 27.2 pg (27.0-31.2); Mean Corpuscular Volume 82.9 fl (80-94); Mean Platelet Volume 9.3 fl (7.4-10.4); Monocytes # 0.3 K/mm3 (0.1-1.0); Monocytes % 6.3 % (1.7-9.3); Neutrophils # 2.7 K/mm3 (1.8-7.8); Neutrophils % 52.7 % (37.0-80.0); Platelet Count 124 K/mm3 (142-424); Potassium 4.6 mmoL/L (3.5-5.1); Red Blood Count 4.21 M/mm3 (4.60-6.20); Red Cell Distribution Width 14.6 % (11.5-17.5); Sodium 136 mmol/L (136-145); White Blood Count 5.2 K/mm3 (4.8-10.8)
--- NOTE | 2020-09-09 09:21 | SUR.PREOP ---
NEW ORDER FOR 5 U REGULAR INSULIN IV FOR FSBS 284. ORDER PUT IN COMPTER PER PHARMACY FOR SQ ROUTE BUT ORDER IS FOR IV. 5 U REGULAR INSULIN GIVEN IV ORDERED. WILL RECHECK FSBS IN 30 MINUTES
[2020-09-09 09:23] LABS: Alanine Aminotransferase 84 U/L (12-78); Albumin Level 4.4 g/dl (3.5-5.0); Albumin/Globulin Ratio 1.3 (1.1-1.8); Alkaline Phosphatase 115 U/L (38-126); Anion Gap 12.6 mEq/L (5-15); Aspartate Amino Transferase 82 U/L (17-59); Bilirubin,Total 0.4 mg/dl (0.2-1.3); Blood Urea Nitrogen 12 mg/dl (9-20); Carbon Dioxide 26 mmol/L (22.0-30.0); Creatinine Clearance Estimated 90 mL/min (50-200); Estimated Glomerular Filt Rate 137 ml/min (>60); GFR (African American) 166 ML/MIN (>60); Globulin 3.5 g/dL (1.3-3.2); Total Protein,Serum 7.9 g/dl (6.3-8.2)
[2020-09-09 09:24] LABS: Calcium 9.5 mg/dl (8.4-10.2); Glucose 297 mg/dl (74-100)
[2020-09-09 09:39] LABS: Coronavirus 19 IgG Antibody Positive (Negative); Coronavirus 19 IgM Antibody Negative (Negative)
--- NOTE | 2020-09-09 10:01 | SUR.PREOP ---
FSBS 262, REPORTED TO KATE Chi CRNA, NO NEW ORDERS.
--- NOTE | 2020-09-09 10:03 | HMH.ANESCL ---
[facility] Anesthesia Checklist - Patient Identification Patient Identification: Arm Band - Structural Data Admitted From: Home Planned Operative Procedure/s: Pain pump explant Consent for Planned Operative Procedure(s) Verified: Yes - Additional verifications Anesthesia Reactions: No Hx Blood Transfusions: No Blood Transfusion Reaction: No - Airway Assessment C-Spine Mobility Assessed: Yes TMJ Mobility Assessed: Yes Dentition: Partials - Neurological Assessment Level of Consciousness: Awake, Alert, Appropriate Hx Seizures: No Numbness or tingling in extremities: Yes - Anesthesia Plan Anesthesia Risk discussed: Yes Anesthesia Plan: Verified ASA Class: III Anesthesia Type: MAC [facility] History I have reviewed the patient's past medical history: Yes Medical History: Reports:: Coronary Artery Disease, Diabetes Mellitus Type 1, Diabetes Mellitus Type 2, Hyperlipidemia, Hypertension Denies:: Cancer, Internal Pacemaker, MRSA, Seizures *Have you ever received a pneumonia vaccine?: No *Have you received a flu vaccine this season?: Yes Other Medical History: Reports: Sinus Problems. Denies: Blood Transfusion Reaction Anesthesia experience/problems:: None Laterality Cases: Right: Arthroscopy Knee, Other Other Surgeries: Yes: Hernia Repair, Other (hand and knee R sx). No: Pacemaker Amputation: No Fractures: No - *Social History Last grade of school completed: High school graduate Smoking Status: Never smoker Tobacco Type: cigarettes Alcohol Intake: never Alcohol Intake Frequency:: holidays/special occasions only Substance Use Type: denies use *Occupational Status:: disabled Housing: house Household Members: spouse *Travel in the last 8 weeks: None Family Hx:: Heart Attack, Hypertension, Stroke
[2020-09-09 10:06] LABS: POC Glucose,Bedside 262 (70-110)
--- NOTE | 2020-09-09 11:33 | HMH.OPNOTE ---
Date of procedure: 09/09/20 Pre-op Diagnosis:: End of life, pain pump generator Post-op Diagnosis:: Same Procedure performed:: Removal and replacement of pain pump generator Surgeon:: Oscar Miller MD SCIENTIFIC INFORMATICS PROJECT LEADER:: Abbe Boyd, Yo Carson, Huy Mitchell, Nicola Rosen, Other Anesthesia: MAC Estimated blood loss (mL): 10 Operative findings:: Not applicable Operative note:: Patient was placed on his right side and his back and abdomen were prepped and draped in sterile fashion. Once adequate IV sedation was obtained as well as local anesthesia was 1% Xylocaine with epinephrine and incision was made over the left upper quadrant pain pump generator with careful dissection was removed without difficulty. The catheter was ligated with a 0 silk ligature. At this point Dr. Fisher placed a paraspinal incision through which a new intrathecal catheter was passed into the intrathecal space to the area desired by Dr. Fisher. The catheter was fixed the paraspinal fascia with fixation devices and 2-0 Prolene suture. Utilizing a tunneling device the catheter was passed from the paraspinal incision to the the generator incision without difficulty. The catheter was passed between the 2 sites through the tunneler. The catheter was then connected to the generator and placed in the pocket. CSF was aspirated from the generator noting patency of the system with removal of CSF. At this point the subcutaneous tissues of both incisions after irrigation with antibiotic solution were closed with 2-0 Vicryl. The skin was then closed arm stitches of 4-0 nylon. Wound VAC dressings and a binder applied to the wound. The patient taught procedure well and was taken recovery room in stable action. Upon recovery the patient will be discharged home will follow-up 1 week for removal of the wound VAC system in 2 weeks for removal of sutures. Bactrim DS twice daily x1 week per protocol. We will be contacted for any concerns Condition: stable Disposition: PACU Complications:: None
--- NOTE | 2020-09-09 11:40 | P.OP_ITS ---
Date of procedure: 09/09/20 Pre-op Diagnosis:: Degenerative disc disease of lumbar spine with lumbar radiculopathy symptoms and end-of-life intrathecal pain pump system Post-op Diagnosis:: Same Procedure performed:: Replacement intrathecal catheter with tunneling for replacement of intrathecal pain pump system Surgeon:: Javier Hernandez MD TEMPERATURE REGULATOR PYROMETER:: Huy Mitchell, Other Anesthesia: MAC Estimated blood loss (mL): 5 Clinical Note:: Patient is a pleasant 60-year-old white male who currently has an intrathecal Medtronic pain pump system with intrathecal Dilaudid going at 0.65 mg/day. His pain pump system is nearing end-of-life. We will replace his intrathecal catheter and pain pump battery today. We will replace it with a Flowonix system. We will reduce his dose to intrathecal Dilaudid 0.5 mg/day. We will refill him with 20 mL and this new reservoir. Operative findings:: None Operative note:: Informed consent was obtained and the risk and benefits of the procedure were explained to the patient. Patient was taken the procedure room. The patient was placed in the right lateral decubitus position. Patient was prepped and draped in sterile fashion. Dr. Priya roche explanted the current Medtronic battery and tied off the old catheter in the pocket. C-arm fluoroscopy was used to view the lumbar spine. The skin and subcutaneous tissues adjacent to the L4- 5 and L5-S1 interspace were anesthetized using lidocaine. I made an incision and dissected down to the lumbar paraspinous fascia. A 14-gauge spinal needle was inserted and advanced into the L4-5 interspace until clear CSF was obtained. After this intrathecal catheter was inserted and advanced very easily to the T12 vertebral body. The stylette of the catheter and the needle withdrawn. The catheter secured to the fascia with 2 anchoring devices and 2-0 Prolene. I prepped the pump with 20 mL of intrathecal Dilaudid 5 mg/mL while Dr. Priya roche prepared the pocket. I tunneled the catheter from the back to the pump pocket and attached catheter to the pump. The pump was placed in the pocket. Both incisions were irrigated with bacitracin solution. The pump was secured in the pocket with 2-0 Prolene. We were able to freely withdraw clear CSF through the side-port. Both incisions were then closed with 2-0 Vicryl followed by 4-0 nylon. A wound VAC was placed over both incisions. Patient was placed in an abdominal binder and taken recovery in stable condition. Patient tolerated procedure well with no complications. Patient was programmed and started at 0.5 mg/day of intrathecal Dilaudid. Patient was discharged home neurologically intact with good relief of pain symptoms. Plan and disposition: Follow-up with this patient in 1 week. We will make adjustments at that time and remove the wound VAC. We will follow-up in 2 weeks for suture removal. We will make further adjustments if needed. If patient has any problems or questions he is to call us back in the pain clinic. Condition: stable Disposition: PACU Complications:: None
--- NOTE | 2020-09-09 11:54 | HMH.ANESI ---
[facility] Anesthesia Record Part I Intake, IV Amount: 900 Estimated blood loss (mL): 0 Urine output (mL): 0 Blood Pressure: 107/67 SaO2: 95 Pulse Rate: 60 Respiratory Rate: 14 Temperature: 97.5 F Patient is:: Awake, Stable Stable to PACU at:: 11:50
--- NOTE | 2020-09-09 13:43 | P.PN_ITS ---
[facility] Anesthesia Record Part II Discharge Time: 12:20 Destination: Surgical Day Care (OP Surgery) PACU nurse assessment reviewed?: Yes Patient Condition:: Good Anesthesia Complications:: None Swallowing reflex intact?: Yes Cyanosis?: No Blood Pressure: 147/79 Pulse Rate: 51 Temperature: 97.8 F Mental Status: Alert & Oriented Pain level:: 0 Nausea and/or vomitting:: None Intake, IV Amount: 800
== END 2020-09-09 12:25 | disposition home or self-care (01) ==
LOC: OR 08:06
PROVIDERS: PCP Family Medicine; Visit Provider Surgery
PROC: (CPT 62362; principal; 2020-09-09 10:00)
DX: Z45.1 Encounter for adjustment and management of infusion pump (principal); M51.16 Intervertebral disc disorders with radiculopathy, lumbar region; I25.10 Atherosclerotic heart disease of native coronary artery without angina pectoris; E10.9 Type 1 diabetes mellitus without complications; E11.9 Type 2 diabetes mellitus without complications; E78.5 Hyperlipidemia, unspecified; I10 Essential (primary) hypertension; Z82.3 Family history of stroke; Z82.49 Family history of ischemic heart disease and other diseases of the circulatory system; Z79.84 Long term (current) use of oral hypoglycemic drugs; Z79.899 Other long term (current) drug therapy; Z88.8 Allergy status to other drugs, medicaments and biological substances
CPT/HCPCS: 62362; 62370; 80053; 82962; 85025; 86328; 96374; C1755; C1772; J3370

== ENCOUNTER → 2020-09-17 10:14 | Outpatient (POV) | payer OTHER, SELFPAY ==
[2020-09-17 10:32] VITALS: BP 120/83; PULSE 85; RESP 18; O2SAT 98; BMI 38.0
--- NOTE | 2020-09-17 10:54 | P.PCN_ITS ---
- Procedure Date: 09/17/20 Time: 10:55 Anesthesiologist:: Mihaela Gilmore APRN Complications:: None Pre-procedure Diagnosis:: Degenerative disc disease lumbar spine lumbar radiculopathy, back pain Post-procedure Diagnosis:: Same Indications for Procedure:: Patient is a pleasant 60-year-old white male who presents today for follow-up after intrathecal pain pump change out. Patient is currently on Dilaudid intrathecal pain infusion of 0.5 mg/day he rates his pain a 2 out of 10. His wound VAC has been removed. Patient denies side effects from medication. [facility] #[id number] reviewed and appropriate. We will set his PTC up today. Procedure Details:: Informed consent was obtained and the risk and benefits of the procedure were explained to the patient. The patient was taken to the procedure room where noninvasive monitoring was placed including noninvasive blood pressure cuff and pulse oximeter. Patient's pump was interrogated and reprogrammed. The infusion rate was continued at 0.5 mg of Dilaudid a day and his PTC was set up at 0.05 mg every 6 hours as needed. The patient tolerated the procedure well. Plan and Disposition:: We will follow up with him in 2 weeks reassess his symptoms at that time. We will also remove the stitches. His incisions were well approximated no sign symptoms of infection. Overall patient doing well he has been instructed to call the office if he has any issues prior to his next appointment. Dr. Hernandez has reviewed this note and agrees with this plan of care. This note was dictated using voice recognition software and may contain errors or omissions
== END ==
PROVIDERS: PCP Family Medicine; Visit Provider Clinical Nurse Specialist Family Health
DX: M51.16 Intervertebral disc disorders with radiculopathy, lumbar region (principal); Z09 Encounter for follow-up examination after completed treatment for conditions other than malignant neoplasm
CPT/HCPCS: 99212; G0463

== ENCOUNTER → 2020-10-01 10:19 | Outpatient (POV) | payer OTHER, SELFPAY ==
[2020-10-01 10:40] VITALS: BP 135/78; PULSE 68; RESP 18; O2SAT 99; BMI 29.8
--- NOTE | 2020-10-01 10:41 | P.PCN_ITS ---
- Procedure Date: 10/01/20 Time: 10:41 Anesthesiologist:: Mihaela Gilmore APRN Complications:: None Pre-procedure Diagnosis:: Degenerative disc disease lumbar spine lumbar radiculopathy, back pain Post-procedure Diagnosis:: Same Indications for Procedure:: Patient is a pleasant 60-year-old white male who presents today for intrathecal pain pump adjustment. Patient rates his pain a 5 out of 10 he has a new pain pump. Patient is currently at 0.5 mg of Dilaudid a day. We will increase him by 20%. Patient denies any side effects to his medication. [facility] #[id number] reviewed and appropriate. Drug screens have been appropriate. Procedure Details:: Informed consent was obtained and the risk and benefits of the procedure were explained to the patient. The patient was taken to the procedure room where noninvasive monitoring was placed including noninvasive blood pressure cuff and pulse oximeter. Patient's pump was interrogated and reprogrammed. The infusion rate was increased to 0.6 mg/day of Dilaudid. The patient tolerated the procedure well. Plan and Disposition:: we will see The patient back at his next intrathecal pain pump refill and reprogram he has been instructed to call the office if he has any issues prior to his next appointment. Dr. Hernandez has reviewed this note and agrees with this plan of care. This note was dictated using voice recognition software and may contain errors or omissions
== END ==
PROVIDERS: PCP Family Medicine; Visit Provider Clinical Nurse Specialist Family Health
DX: M51.16 Intervertebral disc disorders with radiculopathy, lumbar region (principal)
CPT/HCPCS: 62368

== ENCOUNTER 2021-01-01 07:45 | Day surgery (SDC) | payer OTHER, SELFPAY ==
[2021-01-01 08:30] VITALS: BP 142/100; PULSE 69; RESP 18; TEMP 36.7; O2SAT 96; BMI 29.0
[2021-01-01 08:50] VITALS: BP 172/91; PULSE 68; RESP 18; O2SAT 98
[2021-01-01 08:51] VITALS: BP 179/86; PULSE 64; RESP 18; O2SAT 99
--- NOTE | 2021-01-01 09:04 | P.PCN_ITS ---
- Procedure Date: 01/01/21 Time: 09:05 Anesthesiologist:: Ximena Gomez MD Complications:: None Pre-procedure Diagnosis:: Degenerative disc disease of the lumbar spine, lumbar radiculopathy Post-procedure Diagnosis:: Same Indications for Procedure:: A very pleasant 60-year-old white male who presents today with chronic low back pain radiating into his legs related to the above diagnosis. He has an intrathecal pain pump with a flow [place] system and he reports that the current pump dosing is adequately managing his chronic pain at this time. Therefore, we will not make any changes to his pump today. The plan for today is for the patient to undergo pain pump refill and reprogram today. Procedure Details:: Informed consent was obtained and the risks and benefits of the procedure was explained to the patient. The patient was taken to the procedure room. The pump was interrogated. The area over the pump was prepped using ChloraPrep. The pump was accessed with a 22-gauge needle. Approximately [12] mL's of the intrathecal solution was withdrawn and discarded. The pump was then refilled with 20 mL's of intrathecal dilaudid 5 mcg/mL]. The pump was interrogated and the infusion was [unchanged]. He will continue on Dilaudid 5 mg/mL on constant flow and PTC with a daily dose of constant flow of 0.6 mg with 0.06 mg boluses with 4 boluses per day with a 6-hour lockout, with a total maximum daily dose of 0.84 mg/day. The patient tolerated the procedure well with no complications. Next refill date is on [April 12, 2021]. Plan and Disposition:: Follow-up with this patient 1 month. Will reevaluate pain symptoms at that time and make adjustments if needed to his pump dosing at that time. In regards to his intrathecal pump refill, we will see him in 3 months for his next refill. Note, today we discussed in great detail his worsening bilateral leg pain. He states the pain is worse with prolonged standing and walking and is better with sitting down or laying down. He also states the pain is better with leaning forward with the aid of a shopping cart. He describes the pain as throbbing pain that goes down both legs and in his low back and he also notes unsteadiness in his legs at this time. Sebastian reveals limited lumbar flexion extension secondary to pain, deep tendon reflexes are normal in the lower extremities, motor exam is grossly intact in the lower extremities, he has got a positive straight leg bilaterally. Is undergone multiple lumbar epidural steroid injections in the past with very minimal pain relief. He has not recently had an recent MRI in a few years and given that his pain is gradually worsening I would like to order an MRI of the lumbar spine without contrast for further evaluation and to evaluate for ligamentum flavum hypertrophy. I also believe he may potentially benefit from a lumbar epidural injection with epidurogram in the future to further evaluate for spinal stenosis related to hypertrophied ligamentum flavum.
[2021-01-01 09:15] VITALS: BP 137/79; PULSE 63; RESP 20; O2SAT 96
== END 2021-01-01 09:15 | disposition home or self-care (01) ==
LOC: SC.PAINP 07:46
PROVIDERS: PCP Family Medicine; Visit Provider Anesthesiology Pain Medicine
DX: M51.16 Intervertebral disc disorders with radiculopathy, lumbar region (principal); Z45.1 Encounter for adjustment and management of infusion pump; I25.10 Atherosclerotic heart disease of native coronary artery without angina pectoris; E78.5 Hyperlipidemia, unspecified; I10 Essential (primary) hypertension; E11.9 Type 2 diabetes mellitus without complications; K21.9 Gastro-esophageal reflux disease without esophagitis; F41.9 Anxiety disorder, unspecified; F32.9 Major depressive disorder, single episode, unspecified; Z88.8 Allergy status to other drugs, medicaments and biological substances
CPT/HCPCS: 95991

== ENCOUNTER → 2021-02-11 12:44 | Outpatient (CLI) | payer OTHER, SELFPAY ==
--- NOTE | 2021-02-11 02:45 | MR_ITS ---
PROCEDURE: MR LUMBAR SPINE WO CON CLINICAL INDICATION: BACK PAIN Leg weakness, bilateral leg pain and numbness COMPARISON: CR XR PAIN MGT INJ from 09/09/2020 RF XR PAIN MGT INJ from 01/01/2021 TECHNIQUE: Standard multiplanar multiecho sequences are performed without contrast. 3-D MIP and myelographic images are also rendered and reviewed FINDINGS: There is normal alignment. Spinal cord ends at the L1 level. T12-L1: Unremarkable. L1-L2: Mild facet hypertrophic change on the left with mild left-sided foraminal narrowing. L2-L3: Degenerative disc disease with bulging disc with a left paracentral disc osteophyte complex. There is facet and ligamentum hypertrophy with canal stenosis and bilateral lateral recess narrowing left greater than right with severe left-sided foraminal narrowing and moderate right foraminal narrowing. There is a small left paracentral herniated disc with inferior extrusion. Endplate osteophytes are present. L3-L4: Degenerative disc disease with bulging disc/disc osteophyte complex with severe facet and ligamentum hypertrophy and with severe canal stenosis along with severe bilateral lateral recess and foraminal narrowing. There is a small central disc protrusion. Postsurgical changes are present at this level with removal of the spinous process of L3. The lamina however does appear to be in place. CT may confirm this finding. Please correlate with patient's surgical history. L4-5: Degenerative disc disease with bulging disc and endplate hypertrophic change with severe facet and ligamentum hypertrophy with severe bilateral foraminal narrowing. Postsurgical changes at L4-5 with at least a partial laminectomy. Bulging disc is noted with a broad-based central and left paracentral disc protrusion/disc osteophyte complex with bilateral lateral recess narrowing and canal stenosis. L5-S1: Mild facet hypertrophic change with moderate right and mild left foraminal narrowing. IMPRESSION: Multilevel lumbar spondylosis with bulging disc and disc protrusions with disc osteophyte complexes. There is disc herniation with inferior extrusion at L2-L3. Canal stenosis lateral recess and foraminal narrowing is present with postsurgical changes at multiple levels. Please see above for detailed description at each level. Please correlate with surgical history. Dictated by: Nasir Wellington MD 02/15/2021 08:37 Nasir Wellington MD in [place] 02/15/2021 08:38
== END ==
PROVIDERS: PCP Family Medicine; Visit Provider Anesthesiology Pain Medicine
DX: M54.5 Low back pain (principal)
CPT/HCPCS: 72148; 76376

== ENCOUNTER → 2021-02-18 10:24 | Outpatient (POV) | payer OTHER, SELFPAY ==
[2021-02-18 11:02] VITALS: BP 101/65; PULSE 61; RESP 18; O2SAT 97; BMI 29.8
--- NOTE | 2021-02-18 12:10 | HMH.PMPROC ---
- Procedure Date: 02/18/21 Time: 12:10 Anesthesiologist:: Joanna Lu APRN Complications:: None Pre-procedure Diagnosis:: Degenerative disc disease lumbar spine with lumbar radiculopathy symptoms, spinal stenosis with neurogenic claudication symptoms Post-procedure Diagnosis:: Same Indications for Procedure:: Patient is a very pleasant 60-year-old white male who presents today for MRI review and for for adjustment of his intrathecal pump. He has been treated for degenerative disc disease lumbar spine with lumbar radiculopathy symptoms. Patient did have a recent MRI. He is here today to review the results. He is having bilateral low back pain with bilateral lower extremity pain.. He says that his legs are giving out . He is using a cane for ambulation. He did have a fall approximately 3 days ago striking his right lower extremity. He has scabbing noted to his right vigil area today. Patient says that his pain is progressively worsening. His pain is a 6 out of 10 today. He does have an intrathecal pain pump with Dilaudid at 0.6 mg/day which is not giving him any significant relief. He says the pain continues to worsen. He has had surgical intervention with Dr. Quinones in the past. The patient has tried physical therapy for greater than 6 weeks in the past. He has tried injective therapy in the past. He has also tried oral medications with no significant relief. His intrathecal pump gives him some relief, however, does not help with the heaviness or weakness in his lower extremities. 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 Patient was taken to the procedure room where noninvasive monitoring was placed including noninvasive blood pressure cuff and pulse oximeter. Patient's pump was interrogated and was reprogrammed to Dilaudid at 0.7 mg/day. The patient tolerated the procedure well with no complications. Plan and Disposition:: Patient I did review his MRI today. He does have per report spinal stenosis severe. He also has neurogenic claudication symptoms with frequent falls. He has seen Dr. Quinones in the past and would like a referral back to Dr. Quinones. We did increase his intrathecal pump today to see if this helps with some of his pain until he is able to see Dr. Quinones. We will follow-up with him after his appointment with Dr. Quinones for reevaluation of symptoms. He has been instructed to contact clinic if he has any concerns before his next appointment. [facility] #[id number] has been reviewed and is appropriate. Drug screen is appropriate. Patient also gets gabapentin prescribed by our clinic. He does not need a refill at this time. Patient has been instructed to contact the clinic with any concerns before the next appointment. Dr. Hernandez has reviewed this note and agrees with this plan of care. This note was dictated using voice recognition software and make contain errors or omissions.
== END ==
PROVIDERS: PCP Family Medicine; Visit Provider Clinical Nurse Specialist Family Health
DX: M51.16 Intervertebral disc disorders with radiculopathy, lumbar region (principal); M48.062 Spinal stenosis, lumbar region with neurogenic claudication
CPT/HCPCS: 62368; 99212; G0463

== ENCOUNTER 2021-03-29 13:24 | Day surgery (SDC) | payer OTHER, SELFPAY ==
[2021-03-29 13:35] VITALS: BP 132/81; PULSE 62; RESP 18; TEMP 36.6; O2SAT 96; BMI 29.0
[2021-03-29 13:55] VITALS: BP 138/77; PULSE 64; RESP 18; O2SAT 97
[2021-03-29 13:56] VITALS: BP 138/77; PULSE 64; RESP 18; O2SAT 97
--- NOTE | 2021-03-29 14:05 | P.PCN_ITS ---
- Procedure Date: 03/29/21 Time: 14:05 Anesthesiologist:: Joanna Lu APRN Complications:: None Pre-procedure Diagnosis:: Degenerative disc disease lumbar spine with lumbar radiculopathy symptoms, spinal stenosis with neurogenic claudication symptoms Post-procedure Diagnosis:: Same Indications for Procedure:: Patient is a pleasant 59-year-old white male who presents today for intrathecal pain pump refill and reprogram. He has been treated for degenerative disc disease lumbar spine with lumbar radicular symptoms and spinal stenosis with neurogenic claudication symptoms. He is currently on Dilaudid at 0.7 mg/day. [facility] #[id number] has been reviewed and is appropriate. Morphine equivalent is 0. Patient is also managed with gabapentin 800 mg 1 tablet p.o. 3 times daily. Also gets Flexeril. He does get 3 months of medication. Patient says that his medication was previously sent to the wrong pharmacy. He has not received his previous medication. The medicine does need to be sent to [facility]. Patient was referred to Dr. Quinones, however says he received a call from a facility in [place] rather than Dr. Quinones. He would prefer to see Dr. Quinones. Physical exam General: Alert and oriented x3, no acute distress, pleasant and cooperative, [on room air] Lungs: Respirations even and unlabored, symmetrical chest expansion Eyes: PERRL Musculoskeletal: Flexion and extension of lumbar [spine] somewhat guarded secondary to pain, strength in upper and lower extremities [5/5], [antalgic gait noted] Neurological: Speech clear, [geriatric nurse practitioner equal], no gross sensory deficit Procedure Details:: Informed consent was obtained and the risk and benefits of the procedure were explained to the patient. The patient was taken to the procedure room where noninvasive monitoring was placed including noninvasive blood pressure cuff and pulse oximeter. Patient's pump was interrogated. The area over the pump was cleansed with chlorhexidine as a cleansing solution. In sterile fashion the pump was accessed with a 22-gauge needle. Approximately 8 mls of the pump solution was removed and discarded appropriately. The pump was then refilled with 20 mL's of hydromorphone at hydromorphone 5 mg per mill. The needle was withdrawn and a bandage was placed over the puncture site. The infusion rate was reprogrammed at increased to hydromorphone at 0.8 mg/day. The patient tolerated well with no complication. Plan and Disposition:: We will refill the patient's gabapentin 800 mg 1 tablet p.o. 3 times daily. He will get 3 months of medication. We will also refill his Flexeril 10 mg 1 tablet p.o. 3 times daily. This medication will be sent to [facility]. We will refer the patient once again to Dr. Quinones office. We will plan to increase the patient's concentration to 8 mg per mill next visit. We will see the patient back in the clinic at the next intrathecal refill. Patient has been instructed to contact the clinic with any concerns before the next appointment. Dr. Hernandez has reviewed this note and agrees with this plan of care. This note was dictated using voice recognition software and make contain errors or omissions.
[2021-03-29 14:11] VITALS: BP 118/70; PULSE 62; RESP 20; O2SAT 96
== END 2021-03-29 14:12 | disposition home or self-care (01) ==
LOC: SC.PAINP 13:26
PROVIDERS: PCP Family Medicine; Referring Provider Clinical Nurse Specialist Family Health; Visit Provider Clinical Nurse Specialist Family Health
DX: M51.16 Intervertebral disc disorders with radiculopathy, lumbar region (principal); M48.062 Spinal stenosis, lumbar region with neurogenic claudication
CPT/HCPCS: 62370

== ENCOUNTER → 2021-03-29 14:15 | Outpatient (CLI) | payer OTHER, SELFPAY ==
[2021-03-29 15:52] LABS: Amphetamine/Metha Screen,Urine Negative ng/ml (<1000); Barbiturates Screen,Urine Negative ng/ml (<200)
[2021-03-29 15:53] LABS: Benzodiazepines Screen,Urine Negative ng/ml (<200)
[2021-03-29 15:54] LABS: Cannabinoid Screen,Urine Negative ng/ml (<50); Cocaine Screen,Urine Negative ng/ml (<300)
[2021-03-29 15:55] LABS: Methadone Screen,Urine Negative ng/ml (<300)
[2021-03-29 15:56] LABS: Opiate Screen,Urine Negative ng/ml (<300); Phencyclidine Screen,Urine Negative ng/ml (<25)
== END ==
PROVIDERS: Visit Provider Clinical Nurse Specialist Family Health
DX: Z79.891 Long term (current) use of opiate analgesic (principal)
CPT/HCPCS: 80305

== ENCOUNTER 2021-06-21 13:34 | Day surgery (SDC) | payer OTHER, SELFPAY ==
[2021-06-21 13:38] VITALS: BP 147/81; PULSE 68; RESP 18; TEMP 36.6; O2SAT 96; BMI 29.8
[2021-06-21 13:54] VITALS: BP 171/98; PULSE 62; RESP 18; O2SAT 97
[2021-06-21 13:55] VITALS: RESP 18; O2SAT 97
--- NOTE | 2021-06-21 14:02 | HMH.PMPROC ---
- Procedure Date: 06/21/21 Time: 14:02 Anesthesiologist:: Ximena Gomez MD Complications:: None Pre-procedure Diagnosis:: Degenerative disc disease lumbar spine with lumbar radiculopathy symptoms, spinal stenosis with neurogenic claudication symptoms Post-procedure Diagnosis:: Same Indications for Procedure:: Patient is a pleasant 60-year-old male who presents today for intrathecal pain pump refill and reprogram. The patient is being treated for degenerative disc disease of the lumbar spine with lumbar radiculopathy symptoms and spinal stenosis with neurogenic claudication symptoms. Patient is being treated with Dilaudid 5 mg/mL at a rate of 0.8 mg/day with PTC boluses of 0.06 mg per bolus 4 times a day. Patient denies any side effects from this medication. Patient denies any change in location type pain. Patient rates pain a 4 out of 10. Drug screen is appropriate. Port[place] [id number] has been reviewed and is appropriate. Physical exam General: Alert and oriented x3, no acute distress, pleasant and cooperative, [on room air] Lungs: Respirations even and unlabored, symmetrical chest expansion Eyes: PERRL Musculoskeletal: Flexion and extension of lumbar [spine] somewhat guarded secondary to pain, [antalgic gait noted] Neurological: Speech clear, no gross sensory deficit Procedure Details:: Informed consent was obtained and the risk and benefits of the procedure were explained to the patient. The patient was taken to the procedure room where noninvasive monitoring was placed including noninvasive blood pressure cuff and pulse oximeter. Patient's pump was interrogated. The area over the pump was cleansed with chlorhexidine as a cleansing solution. In sterile fashion the pump was accessed with a 22-gauge needle. Approximately 6.5 mls of the pump solution was removed and discarded appropriately. The pump was then refilled with 20 mL's of Dilaudid 5 mg/mL. The needle was withdrawn and a bandage was placed over the puncture site. The infusion rate was reprogrammed and continued at Dilaudid 0.8 mg/day. The patient tolerated well with no complication. Plan and Disposition:: We will see the patient back in the clinic at the next intrathecal refill. Patient has been instructed to contact the clinic with any concerns before the next appointment. This note was dictated using voice recognition software and make contain errors or omissions.
[2021-06-21 14:15] VITALS: BP 147/81; PULSE 68; RESP 20; O2SAT 96
== END 2021-06-21 14:15 | disposition home or self-care (01) ==
LOC: SC.PAINP 13:35
PROVIDERS: PCP Family Medicine; Visit Provider Family Medicine
DX: M51.16 Intervertebral disc disorders with radiculopathy, lumbar region (principal); M48.062 Spinal stenosis, lumbar region with neurogenic claudication; Z45.1 Encounter for adjustment and management of infusion pump; I25.10 Atherosclerotic heart disease of native coronary artery without angina pectoris; E78.5 Hyperlipidemia, unspecified; I10 Essential (primary) hypertension; E11.9 Type 2 diabetes mellitus without complications
CPT/HCPCS: 95991

== ENCOUNTER 2021-09-06 13:41 | Day surgery (SDC) | payer OTHER, SELFPAY ==
[2021-09-06 14:03] VITALS: BP 117/79; BP 121/83; BP 135/80; BP 136/84; PULSE 68; PULSE 70; PULSE 71; RESP 20; TEMP 36.6; O2SAT 98; O2SAT 99; BMI 28.2
--- NOTE | 2021-09-06 14:42 | P.PCN_ITS ---
- Procedure Date: 09/06/21 Time: 14:42 Anesthesiologist:: Chuy Maher CRNA Complications:: None Pre-procedure Diagnosis:: Patient is a very pleasant 60-year-old male who presents today for intrathecal pain pump refill and reprogram. Patient is being treated for degenerative disc disease lumbar spine multilevels with lumbar radiculopathy symptoms and spinal stenosis. Patient is being treated with Dilaudid 5 mg/mL at a rate of 0.8 mg/d ay patient denies any side effects from the medication. Patient denies any side effects from the medication. His [place] has been reviewed #[id number]. Post-procedure Diagnosis:: Generative disc disease lumbar spine multilevels. Lumbar radiculopathy symptoms. Lumbar spinal stenosis. Indications for Procedure:: Same Procedure Details:: Details of the procedure were explained to the patient. The patient was taken to the procedure room placed in the supine position on the fluoroscopy table. The area over the intrathecal pain pump was cleaned using chlorhexidine as a cleansing solution. Using a 22-gauge needle the pump was accessed and medication was withdrawn. At this time the pump was filled with Dilaudid 5 mg/mL. Rate was continued at 0.8 mg/day. Patient tolerated procedure without difficulty. There were no complications. Plan and Disposition:: Patient will return to the procedure clinic in 3 months for refill.
[2021-09-06 16:24] LABS: Amphetamine/Metha Screen,Urine Negative ng/ml (<1000)
[2021-09-06 16:25] LABS: Barbiturates Screen,Urine Negative ng/ml (<200)
[2021-09-06 16:26] LABS: Benzodiazepines Screen,Urine Negative ng/ml (<200); Cannabinoid Screen,Urine Negative ng/ml (<50)
[2021-09-06 16:27] LABS: Cocaine Screen,Urine Negative ng/ml (<300); Methadone Screen,Urine Negative ng/ml (<300)
[2021-09-06 16:28] LABS: Opiate Screen,Urine Negative ng/ml (<300)
[2021-09-06 16:29] LABS: Phencyclidine Screen,Urine Negative ng/ml (<25)
[2021-09-23 14:13] LABS: Codeine Negative (Cutoff=100); Hydrocodone Negative (Cutoff=100); Hydromorphone Positive (.); Morphine Negative (Cutoff=100); Opiates Positive (.)
== END 2021-09-06 14:39 | disposition home or self-care (01) ==
LOC: SC.PAINP 13:44
PROVIDERS: PCP Emergency Medicine; Visit Provider Nurse Anesthetist, Certified Registered
DX: M51.16 Intervertebral disc disorders with radiculopathy, lumbar region (principal); M48.061 Spinal stenosis, lumbar region without neurogenic claudication; Z45.1 Encounter for adjustment and management of infusion pump
CPT/HCPCS: 80305; 80361; 80365; 95991; G0480

== ENCOUNTER → 2021-09-08 09:47 | Outpatient (CLI) | payer MEDICARE, SELFPAY ==
--- NOTE | 2021-09-08 09:50 | XR_ITS ---
FINAL REPORT CLINICAL HISTORY: Pain FINDINGS: LEFT FOOT: Three views of the left foot were obtained. There is no acute fracture or dislocation. The joint spaces are intact. There is no soft tissue abnormality. There is a plantar calcaneal spur. IMPRESSION: No acute bony abnormality. Reviewed, Interpreted and Dictated by Karri Williamson III, MD Transcribed by Bahman Carmichael Authenticated by Karri Williamson III, MD on 09/08/2021 11:21:37 AM [facility]
== END ==
PROVIDERS: PCP Emergency Medicine; Visit Provider Podiatrist
DX: M72.2 Plantar fascial fibromatosis (principal); M79.672 Pain in left foot
CPT/HCPCS: 73630

== ENCOUNTER 2021-11-08 12:35 | Day surgery (SDC) | payer OTHER, SELFPAY ==
[2021-11-08 12:55] VITALS: BP 137/92; PULSE 73; RESP 18; TEMP 36.7; O2SAT 97; BMI 29.0
[2021-11-08 13:08] VITALS: BP 156/87; PULSE 71; RESP 18
[2021-11-08 13:10] VITALS: BP 138/82; PULSE 71; RESP 18; O2SAT 98
--- NOTE | 2021-11-08 13:15 | HMH.PMPROC ---
- Procedure Date: 11/08/21 Time: 13:15 Anesthesiologist:: GEO Niño Complications:: None Pre-procedure Diagnosis:: Degenerative disc disease of lumbar spine with lumbar radiculopathy symptoms Post-procedure Diagnosis:: Same Indications for Procedure:: Patient is a pleasant 61-year-old male who presents today for intrathecal pain pump refill and reprogram. The patient is being treated for degenerative disc disease of lumbar spine with lumbar radiculopathy symptoms. Patient is currently being managed with Dilaudid 5 mg/mL at a rate of 0.8 mg/day. Patient denies any side effects from this medication. Patient rates pain a 8 out of 10. Drug screen is appropriate. Portillo [id number] with an active morphine equivalent of 0 has been reviewed and is appropriate. Patient is also prescribed gabapentin 800 mg 3 times a day. Denies any side effect from this medication. Patient states that he has been having worsening low back pain that radiates to bilateral lower extremities. He would like an adjustment today Physical exam General: Alert and oriented x3, no acute distress, pleasant and cooperative, [on room air] Lungs: Respirations even and unlabored, symmetrical chest expansion Eyes: PERRL Musculoskeletal: Flexion and extension of lumbar [spine] somewhat guarded secondary to pain, [antalgic gait noted] Neurological: Speech clear, no gross sensory deficit Procedure Details:: Informed consent was obtained and the risk and benefits of the procedure were explained to the patient. The patient was taken to the procedure room where noninvasive monitoring was placed including noninvasive blood pressure cuff and pulse oximeter. Patient's pump was interrogated. The area over the pump was cleansed with chlorhexidine as a cleansing solution. [Fluoroscopy was used to access the pump]. In sterile fashion the pump was accessed with a 22-gauge needle. Approximately 10 mls of the pump solution was removed and discarded appropriately. The pump was then refilled with 20 mL's of Dilaudid 5 mg/mL. The needle was withdrawn and a bandage was placed over the puncture site. The infusion rate was reprogrammed and Dilaudid 0.88 mg/day. The patient tolerated well with no complication. Plan and Disposition:: Patient has been having worsening low back pain that radiates to bilateral lower extremities. We increase his intrathecal dose today to Dilaudid 0.88 mg/day. I also discussed with the patient that it would be beneficial to do a repeat lumbar epidural steroid injection. Patient is agreeable to this plan. We will schedule the patient this procedure. Patient is on Plavix and will need to stop this medication prior to his injection. Patient has been instructed to contact the clinic with any concerns before the next appointment. Dr. Hernandez has reviewed this note and agrees with this plan of care. This note was dictated using voice recognition software and make contain errors or omissions.
[2021-11-08 13:25] VITALS: BP 136/86; PULSE 70; RESP 20; O2SAT 97
== END 2021-11-08 13:25 | disposition home or self-care (01) ==
LOC: SC.PAINP 12:36
PROVIDERS: PCP Emergency Medicine; Visit Provider Student in an Organized Health Care Education/Training Program
DX: M51.16 Intervertebral disc disorders with radiculopathy, lumbar region (principal); Z45.1 Encounter for adjustment and management of infusion pump; I25.10 Atherosclerotic heart disease of native coronary artery without angina pectoris; E11.9 Type 2 diabetes mellitus without complications; I10 Essential (primary) hypertension; M19.90 Unspecified osteoarthritis, unspecified site; K21.9 Gastro-esophageal reflux disease without esophagitis; N40.0 Benign prostatic hyperplasia without lower urinary tract symptoms; F41.9 Anxiety disorder, unspecified; E78.5 Hyperlipidemia, unspecified; Z88.8 Allergy status to other drugs, medicaments and biological substances; Z79.899 Other long term (current) drug therapy
CPT/HCPCS: 62370

== ENCOUNTER 2021-11-26 11:29 | Day surgery (SDC) | payer OTHER, SELFPAY ==
[2021-11-26 11:40] VITALS: BP 159/75; PULSE 58; RESP 18; TEMP 36.6; O2SAT 97; BMI 29.8
[2021-11-26 11:53] VITALS: BP 146/56; PULSE 55; RESP 18; O2SAT 96
[2021-11-26 11:55] VITALS: BP 123/68; PULSE 53; RESP 18; O2SAT 97
--- NOTE | 2021-11-26 12:00 | HMH.PMPROC ---
- Procedure Date: 11/26/21 Time: 12:01 Anesthesiologist:: Javier Hernandez MD Complications:: None Pre-procedure Diagnosis:: Degenerative disc disease of lumbar spine with lumbar radiculopathy symptoms and postlaminectomy syndrome lumbar spine Post-procedure Diagnosis:: Same Indications for Procedure:: This patient is a pleasant 61-year-old white male who we have been treating for low back pain with lumbar radiculopathy symptoms and postlaminectomy syndrome lumbar spine. He has increasing pain in his back radiating into his hips and legs. He is diabetic and his sugars are 330 this week. There are almost 400 last week. He is on insulin. We will reduce her steroid and told her patient to watch his sugars post injection to make sure they do not get to a critical level. We will do a lumbar epidural steroid injection under fluoroscopy today to help him with his pain symptoms. Procedure Details:: Informed consent was obtained and the risk and benefits of the procedure was explained to the patient. The patient was taken to the procedure room. The patient was placed prone on the procedure table. The patient was prepped and draped in sterile fashion. C-arm fluoroscopy was used to view the lumbar spine. Skin and subcutaneous tissues were anesthetized using lidocaine. I placed an 18-gauge epidural needle and advanced into the L4-L5 interspace using fluoroscopic guidance and [id number] to air. After confirmation of needle placement in the epidural space with dye I injected 2 mL of lidocaine 1.5% with Depo-Medrol 80 mg. Patient tolerated the procedure well with no complications. Plan and Disposition:: We will follow-up with him in 2 weeks. Will reevaluate his symptoms at that time.
[2021-11-26 12:05] VITALS: BP 123/70; PULSE 54; RESP 20; O2SAT 98
== END 2021-11-26 12:05 | disposition home or self-care (01) ==
LOC: SC.PAINP 11:30
PROVIDERS: PCP Emergency Medicine; Visit Provider Anesthesiology
DX: M51.16 Intervertebral disc disorders with radiculopathy, lumbar region (principal); M96.1 Postlaminectomy syndrome, not elsewhere classified; E11.9 Type 2 diabetes mellitus without complications; Z79.4 Long term (current) use of insulin
CPT/HCPCS: 62323; J1040; Q9966

== ENCOUNTER → 2021-12-20 08:31 | Outpatient (POV) | payer OTHER, SELFPAY ==
[2021-12-20 08:56] VITALS: BP 125/76; PULSE 59; RESP 18; TEMP 36.4; O2SAT 97; BMI 29.8
--- NOTE | 2021-12-20 08:59 | P.CONS_ITS ---
[facility] Pain Management SOAP Note Subjective:: Patient is a pleasant 62-year-old male who presents today for follow-up after a lumbar epidural steroid injection on November 26, 2021. Patient is currently being treated for degenerative disease of lumbar spine with lumbar radiculopathy symptoms, postlaminectomy syndrome. After his injection, patient had significant relief of 70 to 80% and continues to have relief from this injection. He rates his pain today as 4 out of 10. He is also being managed with an intrathecal pain pump Dilaudid 0.88 mg/day. Denies any side effects from this medication. He states that this pump is helping his pain. He states that most of his pain is probably from increasing his activity, he's currently building a chicken coop. He is not needing any adjustments today. Portillo [id number] with an active morphine equivalent of 20. Review of Systems: General: No recent weight changes, no fever, no sleep disturbances Respiratory: No cough, no shortness of air, no recurring pulmonary infections Cardiovascular/peripheral vascular: No chest pain, no palpitations, no edema, no shortness of breath Gastrointestinal: No new onset incontinence, normal bowel movements reported Genitourinary: No new onset incontinence Musculoskeletal: Low back pain Psychiatric: [Normal mood/affect] Neurological: [Denies weakness in extremities], [denies balance issues] Objective:: Physical Exam: General: Alert and oriented x3, no acute distress, pleasant and cooperative Lungs: Respirations even and unlabored, symmetrical chest expansion Eyes: PERRL Musculoskeletal: Flexion and extension of lumbar [spine] somewhat guarded secondary to pain, [antalgic gait noted] Neurological: Speech clear, no gross sensory deficit Assessment:: Degenerative disease of lumbar spine with lumbar radiculopathy symptoms Plan:: Patient is doing well after the lumbar epidural steroid injection. We will follow-up with this patient during his intrathecal pain pump refill. Patient has been instructed to contact the clinic with any concerns before the next appointment. Dr. Hernandez has reviewed this note and agrees with this plan of care. This note was dictated using voice recognition software and make contain errors or omissions. [facility] History Medical History: Reports:: Coronary Artery Disease, Diabetes Mellitus Type 2, Hyperlipidemia, Hypertension Denies:: Cancer, Diabetes Mellitus Type 1, Internal Pacemaker, MRSA, Seizures *Have you ever received a pneumonia vaccine?: No *Have you received a flu vaccine this season?: No Other Medical History: Reports: Arthritis, Sinus Problems. Denies: Blood Transfusion Reaction Laterality Cases: Right: Arthroscopy Knee, Other Other Surgeries: Yes: Colonoscopy, Hernia Repair, Other (hand). No: Pacemaker Amputation: No Fractures: No - *Social History Smoking Status: Never smoker Tobacco Type: cigarettes Alcohol Intake: never Alcohol Intake Frequency:: other Substance Use Type: denies use *Occupational Status:: other Housing: house Household Members: spouse *Travel in the last 8 weeks: Inside the [facility] Family Hx:: Heart Attack, Hypertension, Stroke
== END ==
PROVIDERS: Visit Provider Anesthesiology
DX: M51.16 Intervertebral disc disorders with radiculopathy, lumbar region (principal); M96.1 Postlaminectomy syndrome, not elsewhere classified
CPT/HCPCS: 99212; G0463

== ENCOUNTER 2022-01-18 08:49 | Day surgery (SDC) | payer OTHER, SELFPAY ==
[2022-01-18 09:11] VITALS: BP 114/68; BP 135/72; PULSE 59; PULSE 60; RESP 17; RESP 20; TEMP 36.3; O2SAT 97; O2SAT 98; BMI 29.8
[2022-01-18 09:28] VITALS: BP 129/74; PULSE 60; RESP 20; O2SAT 99
--- NOTE | 2022-01-18 10:52 | HMH.PMPROC ---
- Procedure Date: 01/18/22 Time: 10:52 Anesthesiologist:: Chuy Maher CRNA Complications:: None Pre-procedure Diagnosis:: Degenerative disc disease lumbar spine multilevels. Lumbar radiculopathy symptoms. Post-procedure Diagnosis:: Same Indications for Procedure:: Patient is a pleasant 62-year-old male who comes our clinic today for intrathecal pain pump interrogation refill. He is currently being managed with Dilaudid 5 mg/ml at a rate of 0.88 mg/day. Patient asking for a slight increase today due to bilateral leg radicular symptoms. He states the radicular symptoms occur when walking a lengthy distance. Otherwise, he is doing very well regarding his overall pain. Procedure Details:: Details of the procedure were explained to the patient. The patient taken the procedure room placed in the supine position. The area over the pain pump was cleansed using chlorhexidine as a cleansing solution. The pump was accessed with ease using a 22-gauge needle. 7.5 mL of solution was removed and discarded appropriately. The pump was then filled incrementally with 20 cc of Dilaudid 5 mg/mL. Needle was removed. Band-Aid applied. Patient tolerated procedure without difficulty. There are no complications Pain pump was interrogated and increased to 1.0 mg/day. Plan and Disposition:: Patient was discharged without incident. He will return to clinic in 2 weeks for follow-up visit.
== END 2022-01-18 09:29 | disposition home or self-care (01) ==
LOC: SC.PAINP 08:50
PROVIDERS: PCP Emergency Medicine; Visit Provider Nurse Anesthetist, Certified Registered
DX: M51.16 Intervertebral disc disorders with radiculopathy, lumbar region (principal)
CPT/HCPCS: 62370

== ENCOUNTER → 2022-02-03 10:46 | Outpatient (POV) | payer OTHER, SELFPAY ==
[2022-02-03 11:05] VITALS: BP 123/44; PULSE 63; RESP 20; BMI 29.8
--- NOTE | 2022-02-03 12:53 | HMH.PAINSOAP ---
[facility] Pain Management SOAP Note Subjective:: Patient is a pleasant 62-year-old male who presents today for follow-up. We are currently treating the patient for degenerative disc disease of lumbar spine with lumbar radiculopathy symptoms, postlaminectomy syndrome. Today the patient rates his pain a 8 out of 10. He states his pain is in his low back and bilateral lower extremities. He states it is more so his legs they feel painful and weak and he has had some falling episodes. Patient denies any long-term damage or fractures from these falls. Patient does use a cane for ambulation. Patient also states that he has been fatigued, however he did move his granddaughter into college yesterday and may have overdone it. Patient states he has had some edema and a rash on his lower extremities. Patient states 1 month ago he did have cellulitis in his right lower extremity. He was put on antibiotics for this. Patient has been to see his primary care doctor and his director of primary care sent him for bilateral leg extremity ultrasounds that were negative. Patient does have a intrathecal pain pump that is currently being managed with Dilaudid 5 mg/mL at a rate of 0.88 mg/day. He is also prescribed gabapentin 800 mg 3 times a day. Patient denies any side effects from these medications. He does state that this is adequately managing his pain. Patient states he has also used [id number] topical creams with minimal relief. His Portillo is [id number]. It has been reviewed and appropriate. Review of Systems: General: No recent weight changes, no fever, no sleep disturbances Respiratory: No cough, no shortness of air, no recurring pulmonary infections Cardiovascular/peripheral vascular: No chest pain, no palpitations, no edema, no shortness of breath Gastrointestinal: No new onset incontinence, normal bowel movements reported Genitourinary: No new onset incontinence Musculoskeletal: Low back pain, bilateral leg pain/weakness Psychiatric: [Normal mood/affect] Neurological: [Denies weakness in extremities], [denies balance issues] Objective:: Physical Exam: General: Alert and oriented x3, no acute distress, pleasant and cooperative Lungs: Respirations even and unlabored, symmetrical chest expansion Eyes: PERRL Musculoskeletal: Flexion and extension of lumbar [spine] somewhat guarded secondary to pain, [antalgic gait noted] Neurological: Speech clear, no gross sensory deficit Skin: Bilateral lower extremities have red discoloration noted at ankles and extending up mid calf. No rash noted. Bilateral extremities cool to touch Assessment:: Degenerative disc disease of lumbar spine with lumbar radiculopathy symptoms, postlaminectomy syndrome Plan:: Patient is having significant pain in his bilateral lower extremities. He has had increased weakness resulting in some falls. Patient also stated he had increased fatigue. I have discussed with the patient regarding possibly decreasing his gabapentin dosage. I will change his gabapentin to 600 mg 3 times daily. I will also prescribe the patient a compounding cream at today's visit. I have discussed with the patient regarding possibly being referred to vascular if there is no change in symptoms following medication decrease. Patient does appear to have peripheral vascular disease present. We will follow-up with the patient in 2 weeks. Patient will return to clinic in 2 weeks for follow-up and reevaluation of symptoms. Patient has been instructed to contact the clinic with any concerns before the next appointment. Dr. Hernandez has reviewed this note and agrees with this plan of care. This note was dictated using voice recognition software and make contain errors or omissions. [facility] History I have reviewed the patient's past medical history: Yes Medical History: Reports:: Coronary Artery Disease, Diabetes Mellitus Type 2, Hyperlipidemia, Hypertension Denies:: Cancer, Diabetes Mellitus Type 1, Internal Pacemaker, MRSA, Seizures *Yanez
== END ==
PROVIDERS: PCP Emergency Medicine; Visit Provider Nurse Practitioner Family
DX: M51.16 Intervertebral disc disorders with radiculopathy, lumbar region (principal); M96.1 Postlaminectomy syndrome, not elsewhere classified
CPT/HCPCS: 99212; G0463

== ENCOUNTER → 2022-02-17 09:01 | Outpatient (POV) | payer OTHER, SELFPAY ==
[2022-02-17 09:15] VITALS: BP 125/58; PULSE 64; RESP 20; O2SAT 96; BMI 29.5
--- NOTE | 2022-02-17 09:37 | EXP.PAIN.SOA ---
[facility] Pain Management SOAP Note Subjective:: Patient is a pleasant 61-year-old male who presents today for follow-up. We are currently treating the patient for degenerative disc disease of lumbar spine with lumbar radiculopathy symptoms, postlaminectomy syndrome. Today he rates his pain a 5 out of 10. He states his pain is and he has low back and bilateral lower extremities. At our last visit he had complaints of increased falling episodes so we did decrease his gabapentin from 800 mg 3 times a day to 800 mg twice a day. Patient states it made no difference in his pain levels or with the weakness in his legs. He denies any new falls since however still continues to have discoloration, swelling and per patient a heavy rash on bilateral lower extremities. 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 He states by the end of the day both legs are red with excessive swelling and are painful to touch. He does use a cane for ambulation. Patient has also a history of cellulitis in his right lower extremities. He has had ultrasounds in the past of bilateral extremities that were all negative for abnormal findings. We are currently managing him with a intrathecal pain pump of Dilaudid 5 mg/mL with a daily dose of 1 mg/day. Patient denies any side effects from this medication. His Portillo is [id number]. Its been reviewed and appropriate. Review of Systems: General: No recent weight changes, no fever, no sleep disturbances Respiratory: No cough, no shortness of air, no recurring pulmonary infections Cardiovascular/peripheral vascular: No chest pain, no palpitations, no edema, no shortness of breath Gastrointestinal: No new onset incontinence, normal bowel movements reported Genitourinary: No new onset incontinence Musculoskeletal: Low back pain, bilateral leg pain Psychiatric: [Normal mood/affect] Neurological: [Denies weakness in extremities], [denies balance issues] Objective:: Physical Exam: General: Alert and oriented x3, no acute distress, pleasant and cooperative Lungs: Respirations even and unlabored, symmetrical chest expansion Eyes: PERRL Musculoskeletal: Flexion and extension of lumbar [spine] somewhat guarded secondary to pain, [antalgic gait noted]. Neurological: Speech clear, no gross sensory deficit Skin: Bilateral lower extremities cool to touch, mild erythema, no rash present Assessment:: Degenerative disc disease of lumbar spine with lumbar radiculopathy symptoms, postlaminectomy syndrome, bilateral leg pain/edema Plan:: Patient continues to have redness, swelling and pain in his bilateral lower extremities. Bilateral lower extremities were cool to touch with mild erythema and minimal swelling during today's exam. No rash was present. Patient does currently see Dr. Boo as his registered route associate. I have recommended for him to make appointment with her for follow-up. I have also continued to talk to him about a possible referral to a vascular provider however we will wait for Dr. Boo findings. Patient stated he will contact us after he speaks with Dr. Boo. We will follow-up with the patient in 1 month. Patient will return to clinic in 1 month for follow-up and reevaluation of symptoms following his registered route associate appointment. Patient has been instructed to contact the clinic with any concerns before the next appointment. Dr. Hernandez has reviewed this note and agrees with this plan of care. This note was dictated using voice recognition software and make contain errors or omissions. PFSH PFSH Social History Smoking Status: Never smoker second hand exposure: Yes alcohol intake: never substance use type: denies use current occupational status: other household members: spouse housing: house current occupational exposures/hazards: No caffeine: Yes
== END ==
PROVIDERS: PCP Emergency Medicine; Visit Provider Nurse Practitioner Family
DX: M51.16 Intervertebral disc disorders with radiculopathy, lumbar region (principal); M96.1 Postlaminectomy syndrome, not elsewhere classified; M79.604 Pain in right leg; M79.605 Pain in left leg
CPT/HCPCS: 99212; G0463

== ENCOUNTER → 2022-03-17 08:34 | Outpatient (POV) | payer OTHER, SELFPAY ==
[2022-03-17 08:58] VITALS: BP 103/51; PULSE 63; RESP 18; TEMP 36.6; O2SAT 96; BMI 31.4
--- NOTE | 2022-03-17 09:48 | EXP.PAIN.SOA ---
[facility] Pain Management SOAP Note Subjective:: Patient is a pleasant 61-year-old male that presents today for follow-up. We are currently treating the patient for degenerative disc disease of lumbar spine with lumbar radiculopathy symptoms, postlaminectomy syndrome. Today the patient rates his pain a 4 out of 10 and states the pain is primarily in his low back that radiates into his lower extremities. Patient states this is a sore burning sensation in his lower extremities. Patient is currently managed with a intrathecal pain pump of Dilaudid 5 mg/mL with a daily dose of 1 mg/day. Patient denies any side effects from this medication. He states this medication does adequately help manage his pain. At our last visit he did have complaints of increased falls and weakness in his bilateral lower extremities along with edema. We did decrease his gabapentin from 800 mg 3 times a day to 800 mg twice a day however this made no difference in his weakness of his extremities. Patient has also been seen by his sr. social media & mobile manager where he had negative ultrasound and blood work. He states that did change his fluid pills. Patient states he has not had any new falls however still continues to have the discoloration, swelling, temperature changes and rash to his bilateral legs. 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 His Portillo is [id number]. Its been reviewed and appropriate. Review of Systems: General: No recent weight changes, no fever, no sleep disturbances Respiratory: No cough, no shortness of air, no recurring pulmonary infections Cardiovascular/peripheral vascular: No chest pain, no palpitations, no edema, no shortness of breath Gastrointestinal: No new onset incontinence, normal bowel movements reported Genitourinary: No new onset incontinence Musculoskeletal: Low back pain, bilateral leg pain Psychiatric: [Normal mood/affect] Neurological: [Denies weakness in extremities], [denies balance issues] Objective:: Physical Exam: General: Alert and oriented x3, no acute distress, pleasant and cooperative Lungs: Respirations even and unlabored, symmetrical chest expansion Eyes: PERRL Musculoskeletal: Flexion and extension of lumbar [spine] somewhat guarded secondary to pain, [antalgic gait noted] Neurological: Speech clear, no gross sensory deficit Assessment:: Degenerative disc disease of lumbar spine with lumbar radiculopathy symptoms, postlaminectomy syndrome Plan:: Patient continues to have significant pain in his low back that radiates into his bilateral lower extremities. I have discussed with the patient regarding a lumbar epidural steroid injection. Risk and benefits were discussed with the patient. He would like to proceed forward with this injection. Patient is currently on Plavix and we will discuss with Dr. Boo whether or not he can come off for 3 days prior to injection. I will also send the patient for a vascular referral. Patient has requested that if possible it can be at a surrounding [facility] and not [place]. I will send in a refill of his gabapentin 800 mg and provide a 3-month supply of this medication. We will schedule the patient for a LESI L4-L5 at today's visit. Patient has been advised of risks of oversedation with the prescribed medication. Narcan has been offered to the patient in the event of oversedation. Patient has been advised that a family member should also be educated regarding administration of Narcan. Patient has been instructed to contact the clinic with any concerns before the next appointment. Dr. Hernandez has reviewed this note and agrees with this plan of care. This note was dictated using voice recognition software and make contain errors or omissions. [facility] Social History (Updated 02/17/22 @ 09:49 by Lisa Werner APRN) Smoking St
== END | disposition home or self-care (01) ==
PROVIDERS: PCP Emergency Medicine; Visit Provider Nurse Practitioner Family
DX: M51.16 Intervertebral disc disorders with radiculopathy, lumbar region (principal); M96.1 Postlaminectomy syndrome, not elsewhere classified
CPT/HCPCS: 99212; G0463

== ENCOUNTER 2022-03-29 10:29 | Day surgery (SDC) | payer OTHER, MEDICARE, SELFPAY ==
[2022-03-29 10:42] VITALS: BP 153/86; PULSE 66; RESP 20; TEMP 36.6; O2SAT 98; BMI 31.9
[2022-03-29 10:51] VITALS: BP 154/78; PULSE 62; RESP 18; O2SAT 97
[2022-03-29 10:52] VITALS: BP 154/78; PULSE 62; RESP 18; O2SAT 98
[2022-03-29 11:04] VITALS: BP 122/64; PULSE 61; RESP 20
--- NOTE | 2022-03-29 11:36 | P.PCN_ITS ---
Procedure Date: 03/29/22 Time: 11:36 Anesthesiologist:: Chuy Maher CRNA Complications:: None Pre-procedure Diagnosis:: Degenerative disease lumbar spine multilevels lumbar radicular symptoms Post-procedure Diagnosis:: Same. Indications for Procedure:: Patient is a pleasant 59-year-old male with intrathecal pain pump containing Dilaudid 5 mg/mL at 1 mg/day. Patient is doing very well on his current settings. He does not mention any side effects or problems regarding intrathecal pain pump management. He presents for refill and interrogation today. Procedure Details:: Details of the procedure explained the patient. The patient taken to the procedure room placed in the supine position. The area over the pump in the left lower abdomen was cleansed using chlorhexidine as a cleansing solution. Using a 22-gauge inch and a half needle and fluoroscopy guidance the pump was accessed with ease and 6 mL of solution was removed. 5.4 mL was expected. At this time the pump was filled with 20 cc of Dilaudid 5 mg/mL. The pump was in terrogated the rate was continued at 1.0 mg/day. Patient tolerated procedure without difficulty. There are no complications. Plan and Disposition:: Patient was discharged without incident.
--- NOTE | 2022-03-29 11:40 | P.PCN_ITS ---
Procedure Date: 03/29/22 Time: 11:30 Anesthesiologist:: Chuy Maher CRNA Complications:: None Pre-procedure Diagnosis:: degenerative disc disease of lumbar spine with lumbar radiculopathy symptoms Post-procedure Diagnosis:: Same Indications for Procedure:: Patient is a pleasant 61-year-old male that presents today for intrathecal pain pump refill and reprogram. We are currently treating the patient for degenerative disc disease of lumbar spine with lumbar radiculopathy symptoms. Today the patient rates his pain a 5 out of 10. He states the pain is primarily in his low back that radiates into his legs. Patient denies any new trauma or injury. He is currently managed with bupivacaine 20 mg/mL with a daily dose of 10 mg/day. Patient denies any side effects from this medication. He states this medication is adequately helping manage his pain. Physical exam General: Alert and oriented x3, pleasant and cooperative, on room air no acute distress noted Lungs: Respiration even and unlabored, symmetrical chest expansion eyes: PERRL Musculoskeletal: Flexion and extension of lumbar spine somewhat guarded secondary to pain, antalgic gait noted Neurological: Speech clear, no gross sensory deficit Procedure Details:: Informed consent was obtained and the risk and benefits of the procedure were explained to the patient. Patient was taken to the procedure room and placed in a sitting position with noninvasive monitoring such as a noninvasive blood pressure cuff and pulse oximeter on the patient. The patient's pump was then interrogated. Upon interrogation 7.5 mL of solution was expected. Approximately 11 mL pump solution was withdrawn and discarded appropriately. Then the infusion rate was continued with an increased concentration of bupivacaine 25 mg/mL with a daily dose of 10 mg/day. Patient tolerated the pr ocedure well with no complications. Plan and Disposition:: Patient's pump did show a 3.5 mL discrepancy at today's refill. We will monitor the next refill date and if a continued discrepancy is shown we will plan to do a dye study in the future. We will see the patient back at their next intrathecal pain pump refill date. Patient has been instructed to contact the clinic with any questions or concerns before the next appointment date. Dr. Hernandez has read this note and agrees with this plan of care. This note was dictated using voice recognition software and may contain errors or omissions.
== END 2022-03-29 11:05 | disposition home or self-care (01) ==
LOC: SC.PAINP 10:30
PROVIDERS: PCP Emergency Medicine; Visit Provider Nurse Anesthetist, Certified Registered
DX: M51.16 Intervertebral disc disorders with radiculopathy, lumbar region (principal)
CPT/HCPCS: 62370

== ENCOUNTER 2022-04-26 11:15 | Day surgery (SDC) | payer OTHER, SELFPAY ==
[2022-04-26 11:26] VITALS: BP 127/71; PULSE 61; RESP 20; TEMP 36.5; O2SAT 98; BMI 29.0
[2022-04-26 11:39] VITALS: BP 100/51; PULSE 64; RESP 18; O2SAT 98
[2022-04-26 11:40] VITALS: BP 100/51; PULSE 64; RESP 18; O2SAT 97
[2022-04-26 11:47] VITALS: BP 121/69; PULSE 62; RESP 18; O2SAT 98
--- NOTE | 2022-04-26 11:48 | P.PCN_ITS ---
Procedure Date: 04/26/22 Time: 11:40 Anesthesiologist:: Chuy Maher CRNA Complications:: None Pre-procedure Diagnosis:: Degenerative disc disease lumbar spine multilevels. Lumbar radiculopathy. Lumbar postlaminectomy syndrome. Post-procedure Diagnosis:: Same. Indications for Procedure:: Very pleasant 61-year-old male that comes our clinic today for lumbar epidural steroid injection at the L4-5 level. Patient has low back pain he describes as constant, dull, aching. Also complains of bilateral hip and leg radicular symptoms. We do currently manage the patient in addition to with intrathecal pain pump. Dilaudid 5 mg/mL at 1 mg/day. Procedure Details:: Procedure: Lumbar epidural steroid injection under fluoroscopy Informed consent was obtained and the risks and benefits of the procedure were explained to the patient. The patient was taken to the procedure room and noninvasive monitors placed, including noninvasive blood pressure cuff and pulse oximeter. The back was viewed using C-arm Fluoroscopy and prepped using Chlora prep as a cleansing solution and the L3-4 interspace was palpated. Skin and subcutaneous tissues were anesthetized using lidocaine 1.5% and a 25-gauge needle. After this, an 18-gauge Touhy epidural needle was placed into the L3-4 interspace and advanced using fluoroscopic guidance and loss of resistance to air until the epidural space was encountered. After confirmation of needle placement in the epidural space, with dye, a solution containing normal saline, 3 mL and Depo-Medrol 80 mg were incrementally injected into the lumbar epidural space. The patient tolerated the procedure well with no complications. The patient was observed in the Pain Clinic and then discharged home neurologically intact. Plan and Disposition:: Discussed in detail with the patient following injection. Due to his multiple lumbar spine surgeries I suggest if in fact this injection does not bring him significant improvement in his symptoms we would try a caudal approach.
== END 2022-04-26 11:47 | disposition home or self-care (01) ==
LOC: SC.PAINP 11:15
PROVIDERS: PCP Emergency Medicine; Visit Provider Nurse Anesthetist, Certified Registered
DX: M51.16 Intervertebral disc disorders with radiculopathy, lumbar region (principal); M96.1 Postlaminectomy syndrome, not elsewhere classified
CPT/HCPCS: 62323; J1040

== ENCOUNTER → 2022-05-09 13:54 | Outpatient (POV) | payer OTHER, SELFPAY ==
--- NOTE | 2022-05-09 14:50 | EXP.PAIN.PRO ---
Procedure Date: 05/09/22 Time: 14:47 Anesthesiologist:: Lisa Werner APRN Complications:: None Pre-procedure Diagnosis:: Degenerative disc disease of lumbar spine multilevels with lumbar radiculopathy, postlaminectomy syndrome lumbar spine Post-procedure Diagnosis:: Same Indications for Procedure:: Patient is a pleasant 61-year-old male who presents today for intrathecal pain pump reprogramming and adjustment. The patient is being treated for degenerative disc disease of lumbar spine multilevels with lumbar radiculopathy symptoms, postlaminectomy syndrome. Patient is currently being managed with Dilaudid 5 mg/mL with a daily dose of 1 mg/day. Patient denies any side effects from this medication. Patient is currently managed with gabapentin 800 mg 3 times a day however the patient states he only takes this medication twice a day. Patient states he frequently has increased fatigue and thinks this medication may be part of the issue. Patient does not need any additional refills at this time. Patient previously had a lumbar epidural steroid injection at L3-L4 on 04/26/2022. Patient states he has had at least 50% improvement following this injection and feels like it is still helping him currently. Patient does rate his pain a 4 out of 10 today. Patient denies any new trauma or injury. Patient denies any change in location or type of pain he experiences. Patient states he has been able to increase his activity following this injection and states he notices more pain or achy sensation when he is getting out of the car from a seated position. Patient was previously prescribed compounding cream however insurance did not cover and the patient did not want to pay [id number]. Today the patient states he is going to call and go ahead and get this medication ordered. Drug screen is appropriate. [facility] [id number] has been reviewed and is appropriate. Physical exam General: Alert and oriented x3, no acute distress, pleasant and cooperative Lungs: Respirations even and unlabored, symmetrical chest expansion Eyes: PERRL Musculoskeletal: Flexion and extension of lumbar [spine] somewhat guarded secondary to pain, [antalgic gait noted] Neurological: Speech clear, no gross sensory deficit Procedure Details:: Informed consent was obtained and the risk and benefits of the procedure were explained to the patient. Patient was taken to the procedure room where noninvasive monitoring was placed including noninvasive blood pressure cuff and pulse oximeter. Patient's pump was interrogated and was reprogrammed to Dilaudid 1.1 mg/day. The patient tolerated the procedure well with no complications. Plan and Disposition:: We will follow-up with the patient in 1 month. Patient will return to clinic for reevaluation of symptoms and follow-up. Patient has been instructed to contact the clinic with any concerns before the next appointment. Dr. Hernandez has reviewed this note and agrees with this plan of care. This note was dictated using voice recognition software and make contain errors or omissions. -- It Is medically necessary for this patient to continue to have their intrathecal pump refilled at regular intervals. This patient had an intrathecal pain pump implanted after meeting criteria of chronic intractable pain for greater than 3 months and failing conservative treatments. Patient has committed and been compliant to the treatment plan and all planned follow up care. Since implantation of the intrathecal pain pump, the patient has had decreased pain and been more functional. Oral medications have been reduced including intake of oral opioids. Patient continues to do well with intrathecal therapy with decrease in pain symptoms and increase in functional status. Stopping intrathecal medications can lead to life threatening withdrawal, seizures, cardiac arrest, severe pain, and possible . Pumps that are not refilled at regular intervals can be damages and cause an
[2022-05-09 15:03] VITALS: BP 94/54; PULSE 63; RESP 20; O2SAT 94; BMI 32.3
== END | disposition home or self-care (01) ==
PROVIDERS: Visit Provider Nurse Practitioner Family
DX: M51.16 Intervertebral disc disorders with radiculopathy, lumbar region (principal); M96.1 Postlaminectomy syndrome, not elsewhere classified
CPT/HCPCS: 62368

== ENCOUNTER → 2022-05-24 12:58 | Day surgery (SDC) | payer OTHER, SELFPAY ==
[2022-05-24 13:08] VITALS: BP 112/63; PULSE 66; RESP 18; TEMP 36.4; O2SAT 98; BMI 32.3
--- NOTE | 2022-05-24 13:10 | P.PCN_ITS ---
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 We are currently treating the patient for degenerative disc disease of lumbar spine multilevels with lumbar radiculopathy symptoms, postlaminectomy syndrome. Patient rates his pain a 5 out of 10. Patient denies any new trauma or injury. Patient denies any change in location or type of pain he experiences. Patient is currently managed with Dilaudid 5 mg/mL with a daily dose of 1.1 mg/day. Patient denies any side effects from this medication. He states this medication does help manage his pain symptoms. He is also managed with gabapentin 800 mg 3 times a day however he takes this medication once a day. Patient has occasional episodes where his legs are weak and will occasionally give out. Patient does use a cane for ambulation. Patient is also prescribed a compounding cream that does provide additional improvement of his symptoms. General: Alert and oriented x3, no acute distress, pleasant and cooperative Lungs: Respiration even unlabored, symmetrical chest expansion Eyes: PERRL Musculoskeletal: Flexion and extension of lumbar spine somewhat guarded secondary to pain, antalgic gait noted Neurological: Speech clear, no gross sensory deficit Procedure Details:: Informed consent was obtained and the risk and benefits of the procedure were explained to the patient. The patient was taken to the procedure room and placed in a supine position. Noninvasive monitoring was placed on the patient such as a noninvasive blood pressure cuff and pulse oximeter. The pump was interrogated with approximately 7.8 mL of solution expected. The area over the pump was cleansed with ChloraPrep as a cleansing solution. Using a 22-gauge s terile needle the pump was accessed with 8.6 mL removed and discarded appropriately. Needle was removed and a sterile bandage placed over the puncture site. The pump was then reprogrammed and continued at Dilaudid 1.1 mg/day. The patient tolerated the procedure well with no complications. Plan and Disposition:: Patient was monitored in the clinic setting for short period of time following this procedure and discharged neurologically intact. We will see the patient back at his next intrathecal refill date. Patient has been counseled to contact the office with any questions or concerns before the next appointment date. Dr. Hernandez has read this note and agrees with this plan of care. This note was dictated using voice recognition software and may contain errors or omissions.
[2022-05-24 13:13] VITALS: BP 89/52; PULSE 62; RESP 18
[2022-05-24 13:15] VITALS: BP 92/53; PULSE 62; RESP 18; O2SAT 97
[2022-05-24 13:34] VITALS: BP 137/70; PULSE 64; RESP 20; O2SAT 97
== END | disposition home or self-care (01) ==
PROVIDERS: PCP Emergency Medicine; Visit Provider Nurse Anesthetist, Certified Registered
DX: M51.16 Intervertebral disc disorders with radiculopathy, lumbar region (principal); M96.1 Postlaminectomy syndrome, not elsewhere classified
CPT/HCPCS: 95991

== ENCOUNTER → 2022-06-09 13:06 | Outpatient (POV) | payer MEDICARE, SELFPAY ==
[2022-06-09 13:25] VITALS: BP 114/54; PULSE 64; RESP 18; O2SAT 97; BMI 32.3
--- NOTE | 2022-06-09 13:50 | EXP.PAIN.SOA ---
[facility] Pain Management SOAP Note Subjective:: Patient is a pleasant 61-year-old male who presents today for follow-up. We are currently treating the patient for degenerative disc disease of the lumbar spine multilevels with lumbar radiculopathy symptoms, postlaminectomy syndrome. Today the patient rates his pain a 6 out of 10. Patient denies any new trauma or injury. Patient denies any change location or type of pain he experiences. Patient states he continues to have increased pain after times of prolonged sitting when he goes to get up. Patient does state long drives make his pain worse. Patient does denies any recent falls and states he has been doing better with this. He does use a cane for ambulation. Patient does state though he continues to experience significant swelling in his legs which is unrelated to the intrathecal pain pump medicine. Patient is on a daily lisinopril/hydrochlorothiazide medication to help with. 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 He is currently managed with Dilaudid 5 mg/mL with a daily dose of 1.1 mg/day. Patient denies any side effects from this medication. He states this medication does help manage his pain symptoms. Patient is also managed with gabapentin 800 mg 3 times a day. Patient denies any side effects from this. He states this medicine does help. We have been prescribing this medication every 3 months. His Portillo is [id number]. Review of Systems: General: No recent weight changes, no fever, no sleep disturbances Respiratory: No cough, no shortness of air, no recurring pulmonary infections Cardiovascular/peripheral vascular: No chest pain, no palpitations, no edema, no shortness of breath Gastrointestinal: No new onset incontinence, normal bowel movements reported Genitourinary: No new onset incontinence Musculoskeletal: Low back pain Psychiatric: [Normal mood/affect] Neurological: [Denies weakness in extremities], [denies balance issues] Objective:: Physical Exam: General: Alert and oriented x3, no acute distress, pleasant and cooperative Lungs: Respirations even and unlabored, symmetrical chest expansion Eyes: PERRL Musculoskeletal: Flexion and extension of lumbar [spine] somewhat guarded secondary to pain, [antalgic gait noted] Neurological: Speech clear, no gross sensory deficit Assessment:: 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 Patient did just have his last gabapentin prescription refilled in March and will need a refill coming June. Patient will return to clinic in June for his next intrathecal pain pump refill date and at this visit we will send in his 3 months gabapentin prescription. We will plan on reevaluating His symptoms at this visit. I have discussed with the patient that we will try and set up his medication refill dates to coincide with his pump refill dates so he only has to come every 3 months approximately. We will see the patient back in the clinic at the next intrathecal refill. Patient has been instructed to contact the clinic with any concerns before the next appointment. Dr. Hernandez has reviewed this note and agrees with this plan of care. This note was dictated using voice recognition software and make contain errors or omissions. -- It Is medically necessary for this patient to continue to have their intrathecal pump refilled at regular intervals. This patient had an intrathecal pain pump implanted after meeting criteria of chronic intractable pain for greater than 3 months and failing conservative treatments. Patient has committed and been compliant to the treatment plan and all planned follow up care. Since implantation of the intrathecal pain pump, the patient has had decreased pain and been more functional. Oral medications have been reduc
== END ==
PROVIDERS: PCP Emergency Medicine; Visit Provider Nurse Practitioner Family
DX: M51.16 Intervertebral disc disorders with radiculopathy, lumbar region (principal); M96.1 Postlaminectomy syndrome, not elsewhere classified
CPT/HCPCS: 99212; G0463

== ENCOUNTER 2022-07-19 10:15 | Day surgery (SDC) | payer OTHER, SELFPAY ==
[2022-07-19 10:29] VITALS: BP 153/83; PULSE 71; RESP 18; TEMP 36.1; O2SAT 97; BMI 32.3
--- NOTE | 2022-07-19 10:42 | EXP.PAIN.PRO ---
Procedure Date: 07/19/22 Time: 10:40 Anesthesiologist:: Chuy Maher CRNA Complications:: None Pre-procedure Diagnosis:: Degenerative disc disease lumbar spine multilevels. Lumbar radiculopathy. Post-procedure Diagnosis:: Same. Indications for Procedure:: Patient is a pleasant 62-year-old male that comes our clinic today for intrathecal pain pump refill and interrogation. Patient is currently being managed with hydromorphone 5 mg/mL at 1.1 mg/day. He is doing very well on his current rate. He does not request any increase. Procedure Details:: Details of the procedure explained the patient. The patient was placed in the supine position on the fluoroscopy table. The area over the pump was cleansed using chlorhexidine as a cleansing solution. The pump was accessed with ease using fluoroscopy guidance and a 22-gauge inch and a half needle. 6.9 mL of solution was withdrawn and discarded appropriately. The pump was then filled with 20 cc of hydromorphone 5 mg/mL. The rate will stay the same at 1.1 mg/day. Plan and Disposition:: Patient was discharged without incident.
[2022-07-19 10:45] VITALS: BP 121/58; PULSE 66; RESP 18; O2SAT 97
== END 2022-07-19 10:45 | disposition home or self-care (01) ==
PROVIDERS: PCP Emergency Medicine; Visit Provider Nurse Anesthetist, Certified Registered
DX: Z45.1 Encounter for adjustment and management of infusion pump (principal); M51.16 Intervertebral disc disorders with radiculopathy, lumbar region
CPT/HCPCS: 95991

== ENCOUNTER 2022-09-13 08:40 | Day surgery (SDC) | payer OTHER, SELFPAY ==
[2022-09-13 09:03] VITALS: BP 137/59; PULSE 62; RESP 18; TEMP 36.8; O2SAT 100; BMI 32.3
[2022-09-13 09:27] VITALS: BP 147/82; PULSE 65; RESP 18; O2SAT 96
[2022-09-13 09:40] VITALS: BP 141/74; PULSE 63; RESP 18; O2SAT 100
--- NOTE | 2022-09-13 09:43 | EXP.PAIN.PRO ---
Procedure Date: 09/13/22 Time: 09:30 Anesthesiologist:: Chuy Maher CRNA Complications:: None Pre-procedure Diagnosis:: Degenerative disc disease lumbar spine multilevels. Lumbar radiculopathy Post-procedure Diagnosis:: Same. Indications for Procedure:: Patient is a very pleasant 62-year-old male comes our clinic today for intrathecal pain pump interrogation and refill. Patient is currently being managed with intrathecal Dilaudid 5 mg/mL at 1.1 mg/day. Patient does not report any side effects or complications with his current management. He does not request increase or decrease in his rate today. Procedure Details:: Details of the procedure explained to the patient. Patient taken to procedure room placed in the supine position. The area over the pump was cleansed using chlorhexidine as a cleansing solution. The pump was interrogated. Using fluoroscopy guidance the pump was accessed with a ease using a 22-gauge inch and a half needle. 6 mL of solution was withdrawn and discarded appropriately. The pump was then filled incrementally with 20 cc of Dilaudid 5 mg/mL. The rate will continue at 1.1 mg/day. Plan and Disposition:: Patient was discharged without incident.
== END 2022-09-13 09:40 | disposition home or self-care (01) ==
LOC: SC.PAINP 08:42
PROVIDERS: PCP Emergency Medicine; Visit Provider Nurse Anesthetist, Certified Registered
DX: Z45.1 Encounter for adjustment and management of infusion pump (principal); M51.16 Intervertebral disc disorders with radiculopathy, lumbar region
CPT/HCPCS: 95991

== ENCOUNTER 2022-11-08 07:55 | Day surgery (SDC) | payer OTHER, MEDICARE, SELFPAY ==
[2022-11-08 08:22] VITALS: BP 146/78; PULSE 66; RESP 18; TEMP 36.2; O2SAT 96; BMI 32.3
[2022-11-08 08:55] VITALS: BP 125/64; PULSE 66; RESP 18; O2SAT 97
[2022-11-08 08:56] VITALS: BP 125/64; PULSE 66; RESP 18; O2SAT 97
--- NOTE | 2022-11-08 09:03 | EXP.PAIN.PRO ---
Procedure Date: 11/08/22 Time: 09:00 Anesthesiologist:: Chuy Maher CRNA Complications:: None Pre-procedure Diagnosis:: Degenerative disc disease lumbar spine multilevels. Lumbar radiculopathy Post-procedure Diagnosis:: Same. Indications for Procedure:: Patient is a pleasant 62-year-old male comes our clinic today for intrathecal pain pump interrogation refill. Patient currently being managed with intrathecal Dilaudid 5 mg/mL at 1.1 mg/day. Patient states he is having some sleepiness, feeling drowsy, falling asleep while driving. Patient's homemaker companion and neurologist concur his pump is causing the symptoms. Patient has had his intrathecal pain pump for 15 years. Patient requesting to wean off the intrathecal pain pump management. We will turn him down 10% today. Patient will return to the clinic in 2 weeks for another reduction in rate. Procedure Details:: Details of the procedure explained the patient. The patient taken procedure room placed in the supine position. The area over the pump was cleansed using chlorhexidine as a cleansing solution. The pump was interrogated. The pump was accessed with ease using a 22-gauge inch and half needle with fluoroscopy guidance. 7 mL of solution was expected. 9.2 mL of the solution was withdrawn and discarded appropriately. The pump was then filled with Dilaudid 5 mg/mL 20 cc. The pump was reduced by 10%. His new daily rate is 0.99 mg/day Plan and Disposition:: Patient was discharged without incident.
[2022-11-08 09:05] VITALS: BP 106/60; PULSE 64; RESP 18; O2SAT 96
== END 2022-11-08 09:05 | disposition home or self-care (01) ==
PROVIDERS: PCP Emergency Medicine; Visit Provider Nurse Anesthetist, Certified Registered
DX: Z45.1 Encounter for adjustment and management of infusion pump (principal); M51.16 Intervertebral disc disorders with radiculopathy, lumbar region
CPT/HCPCS: 62370

== ENCOUNTER → 2022-11-30 09:50 | Outpatient (POV) | payer OTHER, SELFPAY ==
--- NOTE | 2022-11-30 10:01 | EXP.PAIN.PRO ---
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 We are currently treating the patient for degenerative disc disease of the lumbar spine multilevels with lumbar radiculopathy symptoms, postlaminectomy syndrome.? Today the patient rates his pain a 4 out of 10.? At his last visit he was decreased 10% of his intrathecal pump settings and denies noticing any big change however he states he is constantly on his feet working. Patient denies any improvement of his drowsiness. He does state over the last several months he has had increased stress and anxiety along with health issues. He states approximately 3 weeks ago he did have to have a heart cath however he states that they said everything looked good. Patient does have stage II liver disease. He states that he would just like to come off of his opioid medication. He does use a cane for ambulation.? He also states he continues to have some leg swelling that is unrelated to his pump medication and that he has tried compression socks however it does cause more swelling up around his knees. Patient is on a daily lisinopril/hydrochlorothiazide medication to help with.? Patient does see his champion of sustainable design on a regular basis.? He is currently managed with Dilaudid 5 mg/mL with a daily dose of 0.99mg/day.? Patient denies any side effects from this medication.? He states this medication does help manage his pain symptoms.? He states he has been weaning himself down from his gabapentin and now only takes the gabapentin 800 mg once daily along with his cyclobenzaprine 10 mg twice daily. Patient denies any side effects from these medications. His Portillo and his [phone]. Its been reviewed and appropriate. Review of Systems: General: No recent weight changes, no fever, no sleep disturbances Respiratory: No cough, no shortness of air, no recurring pulmonary infections Cardiovascular/peripheral vascular: No chest pain, no palpitations, no edema, no shortness of breath Gastrointestinal: No new onset incontinence, normal bowel movements reported Genitourinary: No new onset incontinence Musculoskeletal: Low back pain Psychiatric: [Normal mood/affect] Neurological: [Denies weakness in extremities], [denies balance issues] Procedure Details:: Informed consent was obtained and the risk and benefits of the procedure were explained to the patient. Patient was taken to the procedure room where noninvasive monitoring was placed including noninvasive blood pressure cuff and pulse oximeter. Patient's pump was interrogated and was reprogrammed to Dilaudid 0.891 mg/day. The patient tolerated the procedure well with no complications. Plan and Disposition:: Patient tolerated his intrathecal decrease with no complications and was discharged neurologically intact. I will send in a 90-day supply of his cyclobenzaprine 10 mg twice daily and change his gabapentin 800 mg TID to once daily with 90 tablets. Patient will return to clinic in 2 weeks for additional readjustment and reprogramming of his intrathecal device. I have discussed with the patient that we will plan on decreasing his Dilaudid to a lower dose and switching him over to intrathecal bupivacaine 5 mg/mL at his next refill appointment. Patient has been instructed to contact the clinic with any concerns before the next appointment. Dr. Hernandez has reviewed this note and agrees with this plan of care. This note was dictated using voice recognition software and make contain errors or omissions. -- It Is medically necessary for this patient to continue to have their intrathecal pump refilled at regular intervals. This patient had
[2022-11-30 11:06] VITALS: BP 140/78; PULSE 66; RESP 18; O2SAT 96; BMI 32.3
== END | disposition home or self-care (01) ==
PROVIDERS: PCP Emergency Medicine; Visit Provider Nurse Practitioner Family
DX: Z45.1 Encounter for adjustment and management of infusion pump (principal); M51.16 Intervertebral disc disorders with radiculopathy, lumbar region; M96.1 Postlaminectomy syndrome, not elsewhere classified
CPT/HCPCS: 62368; 99213; G0463

== ENCOUNTER → 2022-12-14 11:40 | Outpatient (POV) | payer OTHER, SELFPAY ==
--- NOTE | 2022-12-14 12:06 | EXP.PAIN.PRO ---
Procedure Date: 12/14/22 Time: 12:06 Anesthesiologist:: Lisa Werner APRN Complications:: None Pre-procedure Diagnosis:: Degenerative disc disease of lumbar spine multilevels with lumbar radiculopathy symptoms, lumbar postlaminectomy Post-procedure Diagnosis:: Same Indications for Procedure:: Patient is a pleasant 62-year-old male who presents today for follow-up and intrathecal adjustment and reprogram. We are currently treating the patient for degenerative disc disease of lumbar spine with lumbar radiculopathy symptoms, lumbar postlaminectomy syndrome. Today he rates his pain a 5 out of 10. Patient denies any new trauma or injury. Patient denies any change in location or type of pain he experiences. Patient denies any new issues with his intrathecal medication. He is currently managed with Dilaudid 5 mg/mL with a daily dose of 0.891 mg/day. We have been slowly decreasing him due to worsening anxiety issues and to rule out bilateral lower extremity edema. Patient does state today that he believes this is completely unrelated to his medication and that he continues to be on his daily lisinopril/hydrochlorothiazide medication. He does see a community aide on a regular basis. He would like to continue to decrease his intrathecal medication. At our last visit I did send in a 3-month supply of his gabapentin 800 mg once a day, and cyclobenzaprine 10 mg 3 times a day. Patient states he does not need anything on these medications at this time and denies any side effects. His Portillo is [id number]. Its been reviewed and appropriate. Physical Exam: General: Alert and oriented x3, no acute distress, pleasant and cooperative Lungs: Respirations even and unlabored, symmetrical chest expansion Eyes: PERRL Musculoskeletal: Flexion and extension of lumbar [spine] somewhat guarded secondary to pain, [antalgic gait noted] Neurological: Speech clear, no gross sensory deficit Procedure Details:: Informed consent was obtained and the risk and benefits of the procedure were explained to the patient. Patient was taken to the procedure room where noninvasive monitoring was placed including noninvasive blood pressure cuff and pulse oximeter. Patient's pump was interrogated and was reprogrammed to Dilaudid 0.802 mg/day. The patient tolerated the procedure well with no complications. Plan and Disposition:: Patient tolerated his intrathecal decrease with no complications and was discharged neurologically intact. Patient will return to clinic in 1 month for reevaluation of symptoms and intrathecal adjustment and reprogram. Patient has been instructed to contact the clinic with any concerns before the next appointment. Dr. Hernandez has reviewed this note and agrees with this plan of care. This note was dictated using voice recognition software and make contain errors or omissions. -- It Is medically necessary for this patient to continue to have their intrathecal pump refilled at regular intervals. This patient had an intrathecal pain pump implanted after meeting criteria of chronic intractable pain for greater than 3 months and failing conservative treatments. Patient has committed and been compliant to the treatment plan and all planned follow up care. Since implantation of the intrathecal pain pump, the patient has had decreased pain and been more functional. Oral medications have been reduced including intake of oral opioids. Patient continues to do well with intrathecal therapy with decrease in pain symptoms and increase in functional status. Stopping intrathecal medications can lead to life threatening withdrawal, seizures, cardiac arrest, severe pain, and possible . Pumps that are not refilled at regular intervals can be damages and cause and need for replacement. We continually titrate dose and concentration to optimize pain relief and function. We are limited in concentration for certain drugs to safely deliver medications through the pump and stay within t
[2022-12-14 12:54] VITALS: BP 136/86; PULSE 70; RESP 18; O2SAT 97; BMI 32.9
== END | disposition home or self-care (01) ==
PROVIDERS: PCP Emergency Medicine; Visit Provider Nurse Practitioner Family
DX: M51.16 Intervertebral disc disorders with radiculopathy, lumbar region (principal); M96.1 Postlaminectomy syndrome, not elsewhere classified
CPT/HCPCS: 62368; 99213; G0463

== ENCOUNTER 2023-01-17 12:42 | Day surgery (SDC) | payer OTHER, SELFPAY ==
[2023-01-17 12:49] VITALS: BP 157/90; PULSE 65; RESP 18; TEMP 36.4; O2SAT 98; BMI 32.4
[2023-01-17 13:07] VITALS: BP 139/78; PULSE 67; RESP 20; O2SAT 97
--- NOTE | 2023-01-17 13:17 | EXP.PAIN.PRO ---
Procedure Date: 01/17/23 Time: 13:16 Anesthesiologist:: Chuy Maher CRNA Complications:: None Pre-procedure Diagnosis:: Degenerative disc lumbar spine multilevels. Lumbar radiculopathy. Lumbar postlaminectomy syndrome. Post-procedure Diagnosis:: Same. Indications for Procedure:: Patient is a very pleasant 62-year-old male that comes our clinic today for intrathecal pain pump interrogation and refill. He is currently being managed with Dilaudid 5 mg/mL at 0.80 to 0 mg/day. Patient reports he is doing very well with his current management. He does not report any side effects or complications. Procedure Details:: Details of the procedure explained to the patient. The patient taken the procedure room placed in the supine position arthroscopy table. The area of the pump was cleansed using chlorhexidine as a cleansing solution. The pump was interrogated. The pump was accessed with ease using a 22-gauge inch and a half needle. 7 mL of solution was withdrawn from the pump. Discarded appropriately. The pump was then filled incrementally under fluoroscopy guidance with 20 cc of a solution containing Dilaudid 5 mg/mL. Patient tolerated procedure without difficulty. There are no complications. Plan and Disposition:: Patient was discharged without incident.
[2023-01-17 13:22] VITALS: BP 146/77; PULSE 63; RESP 18; O2SAT 98
[2023-01-17 14:45] LABS: Amphetamine/Metha Screen,Urine Negative ng/ml (<1000)
[2023-01-17 14:46] LABS: Barbiturates Screen,Urine Negative ng/ml (<200)
[2023-01-17 14:47] LABS: Benzodiazepines Screen,Urine Negative ng/ml (<200); Cannabinoid Screen,Urine Negative ng/ml (<50)
[2023-01-17 14:48] LABS: Cocaine Screen,Urine Negative ng/ml (<300); Methadone Screen,Urine Negative ng/ml (<300)
[2023-01-17 14:49] LABS: Opiate Screen,Urine Negative ng/ml (<300)
[2023-01-17 14:50] LABS: Phencyclidine Screen,Urine Negative ng/ml (<25)
[2023-01-24 12:06] LABS: Codeine Negative (Cutoff=100); Hydrocodone Negative (Cutoff=100); Hydromorphone Positive (.); Morphine Negative (Cutoff=100); Opiates Positive (.)
== END 2023-01-17 13:24 | disposition home or self-care (01) ==
PROVIDERS: Anesthesiology; PCP Emergency Medicine; Visit Provider Nurse Anesthetist, Certified Registered
DX: M51.16 Intervertebral disc disorders with radiculopathy, lumbar region (principal); M96.1 Postlaminectomy syndrome, not elsewhere classified
CPT/HCPCS: 80305; 80361; 80365; 95991; G0480

== ENCOUNTER → 2023-02-03 08:17 | Outpatient (CLI) | payer MEDICARE, SELFPAY ==
[2023-02-03 09:48] LABS: Chloride 102 mmol/L (98-107); Potassium 3.8 mmoL/L (3.5-5.1); Sodium 138 mmol/L (136-145)
[2023-02-03 09:50] LABS: Blood Urea Nitrogen 10 mg/dl (9-20); Estimated Glomerular Filt Rate 168 ml/min (>60); GFR (African American) 203 ML/MIN (>60)
[2023-02-03 09:51] LABS: Alanine Aminotransferase 49 U/L (12-78); Albumin Level 3.8 g/dl (3.5-5.0); Alkaline Phosphatase 113 U/L (38-126); Anion Gap 14.8 mEq/L (5-15); Aspartate Amino Transferase 58 U/L (17-59); Bilirubin,Total 0.5 mg/dl (0.2-1.3); Calcium 9.4 mg/dl (8.4-10.2); Carbon Dioxide 25 mmol/L (22.0-30.0); Globulin 3.7 g/dL (1.3-3.2); Glucose 186 mg/dl (74-100); Total Protein,Serum 7.5 g/dl (6.3-8.2)
== END ==
PROVIDERS: PCP Emergency Medicine; Visit Provider Nurse Practitioner
DX: K74.60 Unspecified cirrhosis of liver (principal)
CPT/HCPCS: 36415; 80053

== ENCOUNTER 2023-03-07 08:50 | Day surgery (SDC) | payer MEDICARE, SELFPAY ==
[2023-03-07 09:05] VITALS: BP 161/90; PULSE 61; RESP 17; TEMP 37; O2SAT 96; BMI 32.3
[2023-03-07 09:06] VITALS: BP 141/81; PULSE 68; RESP 18; O2SAT 98
[2023-03-07 09:20] VITALS: BP 141/81; PULSE 68; RESP 18; O2SAT 98
--- NOTE | 2023-03-07 11:28 | PC.NURSE ---
PT ARRIVED FOR PUMP REFILL AFTER MRI. TIME OUT = 1130. ALL STAFF AND PT AGREE W/ INFORMATION. BP = 126/77, HR = 59, O2 ON RA = 96%, PAIN LEVEL 5/10, RR = 18. NO DISTRESS NOTED. NAME/BDAY/DRUG/DOSAGE CONFIRMED PRIOR TO FILL. 11.4ML DILAUDID 5MG/ML PLACED IN PUMP PER PDUFF. NEW DD = 0.76. PT STEPHANIE WELL.
--- NOTE | 2023-03-07 11:37 | EXP.PAIN.PRO ---
Procedure Date: 03/07/23 Time: 11:20 Anesthesiologist:: Chuy Maher CRNA Complications:: None Pre-procedure Diagnosis:: Degenerative disc disease lumbar spine multilevels. Lumbar radiculopathy. Lumbar postlaminectomy syndrome. Post-procedure Diagnosis:: Same Indications for Procedure:: Patient is a very pleasant 62-year-old male comes our clinic today for intrathecal pain pump medication removal for purpose of MRI. Patient will return after MRI for replacement of medication. Patient also requesting decrease in medication rate. Procedure Details:: Details of the procedure explained to the patient. The patient taken to procedure room placed in the supine position on the fluoroscopy table. The area over the pump was cleansed with chlorhexidine as a cleansing solution. The pump was interrogated. The pump was accessed with ease using a 22-gauge inch and half needle. 11.5 mL of solution was withdrawn from the pump. Patient returned from MRI. Patient was placed on the procedure table in the supine position. Using fluoroscopy guidance the pump was accessed with ease using a 22-gauge inch and half needle. 11.5 mL of Dilaudid 5 mg/mL was reinserted into the intrathecal pain pump. Patient requesting or decrease in the rate. We will decreasing by 5%. His new rate will be 0.76 mg/day. Patient tolerated procedure without difficulty. There are no complications. Plan and Disposition:: Patient was discharged without incident.
--- NOTE | 2023-03-07 12:04 | PC.NURSE ---
0974--pt escorted to MRI, accompanied by staff
--- NOTE | 2023-03-07 12:04 | PC.NURSE ---
1125-pt returned to bay from MRI
--- NOTE | 2023-03-07 12:05 | PC.NURSE ---
1150-pt left without waiting for follow up vitals.
== END 2023-03-07 11:50 | disposition home or self-care (01) ==
PROVIDERS: PCP Emergency Medicine; Visit Provider Nurse Anesthetist, Certified Registered
DX: M51.16 Intervertebral disc disorders with radiculopathy, lumbar region (principal); M96.1 Postlaminectomy syndrome, not elsewhere classified; Z97.8 Presence of other specified devices
CPT/HCPCS: 95991

== ENCOUNTER → 2023-03-07 08:52 | Outpatient (CLI) | payer MEDICARE, SELFPAY ==
--- NOTE | 2023-03-07 09:57 | MR_ITS ---
FINAL REPORT CLINICAL HISTORY: LESION ON LIVER shown on ct scan at [facility] 19 ml prohance given pt has pain pump COMPARISON: 01/09/2023 FINDINGS: Multiplanar MR imaging of the abdomen was performed without and with contrast. There was a low-attenuation focus in the posterior right hepatic lobe on the prior study. No abnormality is seen in this region on the current exam. There are 2 small cysts in the left hepatic lobe measuring up to 8 mm. There is nonspecific gallbladder wall thickening. A small amount of ascites is identified. There is splenomegaly. The spleen measures 14 cm in length. There is no evidence of biliary ductal dilatation. No other mass or adenopathy is identified. No abnormal fluid collection is seen. No abnormal contrast enhancement is seen on the postcontrast images. IMPRESSION: No mass is seen in the right hepatic lobe. Two small cysts in the left hepatic lobe. Nonspecific gallbladder wall thickening. If indicated, nuclear medicine hepatobiliary scan may be helpful. Small amount of ascites. Splenomegaly. Reviewed, Interpreted and Dictated by Karri Williamson III, MD Transcribed by Whitney Brown Authenticated and [facility]
[2023-03-07 10:18] LABS: Blood Urea Nitrogen 11 mg/dl (9-20); Estimated Glomerular Filt Rate 136 ml/min (>60); GFR (African American) 165 ML/MIN (>60)
== END ==
LOC: RAD 08:52
PROVIDERS: PCP Emergency Medicine; Visit Provider Nurse Practitioner
DX: K76.9 Liver disease, unspecified (principal)
CPT/HCPCS: 36415; 74183; 82565; 84520; A9576

== ENCOUNTER 2023-04-07 11:41 | Day surgery (SDC) | payer OTHER, MEDICARE, SELFPAY ==
[2023-04-07 11:50] VITALS: BP 139/81; PULSE 66; RESP 20; BMI 33.3
--- NOTE | 2023-04-07 12:14 | EXP.PAIN.PRO ---
Procedure Date: 04/07/23 Time: 12:15 Anesthesiologist:: Chuy Maher CRNA Complications:: None Pre-procedure Diagnosis:: Degenerative disc lumbar spine multilevels. Lumbar radiculopathy. Lumbar postlaminectomy syndrome. Post-procedure Diagnosis:: Same. Indications for Procedure:: Patient is a very pleasant 62-year-old male that comes our clinic today for intrathecal pain pump interrogation refill. Patient currently being managed with Dilaudid 5 mg/mL at 0.76 mg/day. Patient is in the process of self weaning. Patient had a recent TIA versus CVA type experience that required an overnight stay in the hospital. He reports his primary care doctor encouraged him to decrease medicines. Patient no longer takes gabapentin. Patient's pump was refilled on 03/07/2023. We decreased him by 5% at that time. Patient requesting a 10% decrease today. Patient really does not complain of any pain today. Procedure Details:: Details of the procedure explained to the patient. The patient taken to procedure room placed in the supine position. The area over the pump was cleaned using chlorhexidine as a cleansing solution. The pump was interrogated. The pump was accessed with ease using a 22-gauge inch and half needle. 6 mL of solution was withdrawn from the pump and discarded appropriate. The pump was then filled with 20 cc of a solution containing Dilaudid 5 mg/mL. Patient tolerated procedure without difficulty. No complications. Patient's new rate will be 0.66 mg/day. Plan and Disposition:: Patient was discharged without incident.
[2023-04-07 12:19] VITALS: BP 137/65; PULSE 71; RESP 20; O2SAT 98
[2023-04-07 12:35] VITALS: BP 139/81; PULSE 66; RESP 20
== END 2023-04-07 12:35 | disposition home or self-care (01) ==
PROVIDERS: PCP Emergency Medicine; Visit Provider Nurse Anesthetist, Certified Registered
DX: M51.16 Intervertebral disc disorders with radiculopathy, lumbar region (principal); M96.1 Postlaminectomy syndrome, not elsewhere classified; Z97.8 Presence of other specified devices
CPT/HCPCS: 95991

== ENCOUNTER → 2023-04-21 12:44 | Outpatient (POV) | payer OTHER, SELFPAY ==
--- NOTE | 2023-04-21 13:41 | EXP.PAIN.SOA ---
[facility] Pain Management SOAP Note Subjective:: Patient is a very pleasant 62-year-old male that comes our clinic today for intrathecal pain pump decreased. We have been managing the patient chronically for quite some time for degenerative disc lumbar spine multilevels. Lumbar radiculopathy. Lumbar postlaminectomy syndrome. Patient is interested in discontinuing intrathecal narcotic therapy. He is currently being managed with Dilaudid 5 mg/mL at rate of 0.6900 mg/day. We will decrease him 20%. His new rate will be 0.55 mg/day. I discussed in detail with the patient regarding exchanging intrathecal pain pump medication to bupivacaine only after weaning process. Patient is very interested. Objective:: Patient is awake alert [place] x3. In no acute distress. Flexion-extension lumbar spine somewhat guarded secondary to pain. Deep tendon reflexes upper lower extremities normal. There is no gross sensory deficit. Gait is normal. Assessment:: Degenerative disc disease lumbar spine multilevels. Lumbar radiculopathy. Lumbar postlaminectomy syndrome. Plan:: Patient will return to clinic in 2 weeks for additional decrease of the intrathecal pain pump management. [facility] Disclaimer: The information contained in this section may have been updated after the patient was seen, as this information can be updated by other users. Medical History Cirrhosis of liver Diabetes mellitus GERD (gastroesophageal reflux disease) HLD (hyperlipidemia) Hypertension Tumor Family History Other No significant family history Social History (Updated 04/07/23 @ 13:13 by Gladis Denis RN) Smoking Status: Never smoker second hand exposure: Yes alcohol intake: never substance use type: denies use current occupational status: other Travel in the last 8 weeks: None household members: spouse housing: house current occupational exposures/hazards: No caffeine: Yes
[2023-04-21 13:48] VITALS: BP 139/83; PULSE 67; RESP 18; O2SAT 97; BMI 33.3
== END ==
PROVIDERS: PCP Emergency Medicine; Visit Provider Nurse Anesthetist, Certified Registered
DX: M51.16 Intervertebral disc disorders with radiculopathy, lumbar region (principal); M96.1 Postlaminectomy syndrome, not elsewhere classified; Z97.8 Presence of other specified devices
CPT/HCPCS: 62368; 99213; G0463

== ENCOUNTER → 2023-05-01 11:12 | Outpatient (POV) | payer OTHER, SELFPAY ==
--- NOTE | 2023-05-01 11:28 | EXP.PAIN.PRO ---
Procedure Date: 05/01/23 Time: 11:28 Anesthesiologist:: Lisa Werner APRN Complications:: None Pre-procedure Diagnosis:: Degenerative disc disease of lumbar spine with lumbar radiculopathy symptoms, lumbar postlaminectomy syndrome Post-procedure Diagnosis:: Same Indications for Procedure:: Patient is a pleasant 62-year-old male who presents today for intrathecal adjustment and reprogram. We are currently treating the patient for degenerative disc disease of lumbar spine with lumbar radiculopathy symptoms, lumbar postlaminectomy syndrome. Today he rates his pain a 3 out of 10. Patient denies any new trauma or injury. Patient denies any change to location or type of pain he experiences. We are currently in the process of decreasing his intrathecal patient is a pleasant in order to switch him over to bupivacaine. Patient is currently managed with Dilaudid 5 mg/mL with a daily dose of 0.55 mg/day. Patient denies any side effects from this medication. Patient is currently managed with tadalafil 200 mg daily and alprazolam 1 mg daily from an outside provider. He denies any side effects from these medications. His Portillo has been reviewed and is appropriate. Physical exam General: Alert and oriented x3, no acute distress, pleasant and cooperative Lungs: Respirations even and unlabored, symmetrical chest expansion Eyes: PERRL Musculoskeletal: Flexion and extension of lumbar [spine] somewhat guarded secondary to pain, [antalgic gait noted] Neurological: Speech clear, no gross sensory deficit Procedure Details:: Informed consent was obtained and the risk and benefits of the procedure were explained to the patient. Patient was taken to the procedure room where noninvasive monitoring was placed including noninvasive blood pressure cuff and pulse oximeter. Patient's pump was interrogated and was reprogrammed to Dilaudid 0.44 mg/day. The patient tolerated the procedure well with no complications. Plan and Disposition:: Patient tolerated his intrathecal decrease with no complications. I have discussed with the patient that I will see him back in 2 weeks for additional decrease in that we will proceed forward with going ahead and ordering the bupivacaine for his next intrathecal pump refill. Patient has been instructed to contact the clinic with any concerns before the next appointment. Dr. Hernandez has reviewed this note and agrees with this plan of care. This note was dictated using voice recognition software and make contain errors or omissions. -- It Is medically necessary for this patient to continue to have their intrathecal pump refilled at regular intervals. This patient had an intrathecal pain pump implanted after meeting criteria of chronic intractable pain for greater than 3 months and failing conservative treatments. Patient has committed and been compliant to the treatment plan and all planned follow up care. Since implantation of the intrathecal pain pump, the patient has had decreased pain and been more functional. Oral medications have been reduced including intake of oral opioids. Patient continues to do well with intrathecal therapy with decrease in pain symptoms and increase in functional status. Stopping intrathecal medications can lead to life threatening withdrawal, seizures, cardiac arrest, severe pain, and possible . Pumps that are not refilled at regular intervals can be damages and cause and need for replacement. We continually titrate dose and concentration to optimize pain relief and function. We are limited in concentration for certain drugs to safely deliver medications through the pump and stay within the recommendations from the Polyanalgesic Consensus Committee Guidelines. Depending on dose and concentration these pumps may need to be refilled sooner than 3 months as we titrate.
[2023-05-01 12:41] VITALS: BP 146/86; PULSE 64; RESP 18; O2SAT 96; BMI 33.3
== END | disposition home or self-care (01) ==
PROVIDERS: PCP Emergency Medicine; Visit Provider Nurse Practitioner Family
DX: M51.16 Intervertebral disc disorders with radiculopathy, lumbar region (principal); M96.1 Postlaminectomy syndrome, not elsewhere classified; Z97.8 Presence of other specified devices
CPT/HCPCS: 62368; 99213; G0463

== ENCOUNTER → 2023-05-25 10:16 | Outpatient (POV) | payer OTHER, SELFPAY ==
--- NOTE | 2023-05-25 10:34 | P.PCN_ITS ---
Procedure Date: 05/25/23 Time: 10:35 Anesthesiologist:: Lisa Werner APRN Complications:: None Pre-procedure Diagnosis:: Degenerative disc disease of lumbar spine with lumbar radiculopathy symptoms, lumbar postlaminectomy syndrome Post-procedure Diagnosis:: Same Indications for Procedure:: Patient is a pleasant 62-year-old male who presents today for intrathecal adjustment and reprogram. We are currently treating the patient for degenerative disc disease of lumbar spine with lumbar radiculopathy symptoms, lumbar postlaminectomy syndrome. We are continuing to decrease his intrathecal narcotic medication in order to switch him over to bupivacaine. Today he rates his pain a 4 out of 10. Patient does state he is tolerating his decreases well however has been experiencing a little bit more soreness. Patient is currently managed with Dilaudid 5 mg/mL with a daily dose of 0.44 mg/day. Patient denies any side effects from this medication. His Portillo has been reviewed and is appropriate. Physical Exam: General: Alert and oriented x3, no acute distress, pleasant and cooperative Lungs: Respirations even and unlabored, symmetrical chest expansion Eyes: PERRL Musculoskeletal: Flexion and extension of lumbar [spine] somewhat guarded secondary to pain, [antalgic gait noted] Neurological: Speech clear, no gross sensory deficit Procedure Details:: Informed consent was obtained and the risk and benefits of the procedure were e xplained to the patient. Patient was taken to the procedure room where noninvasive monitoring was placed including noninvasive blood pressure cuff and pulse oximeter. Patient's pump was interrogated and was reprogrammed to Dilaudid 0.35 mg/day. The patient tolerated the procedure well with no complications. Plan and Disposition:: Patient tolerated his intrathecal decrease with no complications and was discharged neurologically intact. Patient is already scheduled for his intrathecal refill date on June 23 where we will switch him over to the bupivacaine pump medication. Patient will return to clinic in 2 weeks for 1 additional adjustment reprogramming. Patient has been instructed to contact the clinic with any concerns before the n ext appointment. Dr. Hernandez has reviewed this note and agrees with this plan of care. This note was dictated using voice recognition software and make contain errors or omissions. -- It Is medically necessary for this patient to continue to have their intrathecal pump refilled at regular intervals. This patient had an intrathecal pain pump implanted after meeting criteria of chronic intractable pain for greater than 3 months and failing conservative treatments. Patient has committed and been compliant to the treatment plan and all planned follow up care. Since implantation of the intrathecal pain pump, the patient has had decreased pain and been more functional. Oral medications have been reduced including intake of oral opioids. Patient continues to do well with intrathecal therapy with decrease in pain symptoms and increase in functional status. Stopping intrathecal medications can lead to life threatening withdrawal, seizures, cardiac arrest, severe pain, and possible . Pumps that are not refilled at regular intervals can be damages and cause and need for replacement. We continually titrate dose and concentration to optimize pain relief and function. We are limited in concentration for certain drugs to safely deliver medications through the pump and stay within the recommendations from the Polyanalgesic Consensus Committee Guidelines. Depending on dose and concentration these pumps may need to be refilled sooner than 3 months as we titrate.
[2023-05-25 10:48] VITALS: BP 145/77; PULSE 64; RESP 18; O2SAT 96; BMI 33.3
== END | disposition home or self-care (01) ==
PROVIDERS: PCP Emergency Medicine; Visit Provider Nurse Practitioner Family
DX: M51.16 Intervertebral disc disorders with radiculopathy, lumbar region (principal); M96.1 Postlaminectomy syndrome, not elsewhere classified; Z97.8 Presence of other specified devices
CPT/HCPCS: 62368; 99212; G0463

== ENCOUNTER → 2023-06-08 09:32 | Outpatient (POV) | payer OTHER, SELFPAY ==
--- NOTE | 2023-06-08 09:52 | EXP.PAIN.PRO ---
Procedure Date: 06/08/23 Time: 09:52 Anesthesiologist:: Lisa Werner APRN Complications:: None Pre-procedure Diagnosis:: Degenerative disc disease of lumbar spine with lumbar radiculopathy symptoms, or postlaminectomy syndrome Post-procedure Diagnosis:: Same Indications for Procedure:: Patient is a pleasant 62-year-old male who presents today for intrathecal adjustment and reprogram. We are currently treating the patient for degenerative disc disease of lumbar spine with lumbar radiculopathy symptoms, lumbar postlaminectomy syndrome. Patient is currently managed with Dilaudid 5 mg/mL with a daily dose of 0.35 mg/day. He denies any side effects from this medication. We are decreasing him to switch him over to bupivacaine in his pump. Patient does already have his next intrathecal refill date coming up at the end of this month. His Portillo has been reviewed and is appropriate. Physical Exam: General: Alert and oriented x3, no acute distress, pleasant and cooperative Lungs: Respirations even and unlabored, symmetrical chest expansion Eyes: PERRL Musculoskeletal: Flexion and extension of lumbar [spine] somewhat guarded secondary to pain, [antalgic gait noted] Neurological: Speech clear, no gross sensory deficit Procedure Details:: Informed consent was obtained and the risk and benefits of the procedure were explained to the patient. Patient was taken to the procedure room where noninvasive monitoring was placed including noninvasive blood pressure cuff and pulse oximeter. Patient's pump was interrogated and was reprogrammed to Dilaudid 0.28 mg/day. The patient tolerated the procedure well with no complications. Plan and Disposition:: Patient tolerated his intrathecal decrease with no complications and was discharged neurologically intact. We will see the patient back in the clinic at the next intrathecal refill. Patient has been instructed to contact the clinic with any concerns before the next appointment. Dr. Hernandez has reviewed this note and agrees with this plan of care. This note was dictated using voice recognition software and make contain errors or omissions. -- It Is medically necessary for this patient to continue to have their intrathecal pump refilled at regular intervals. This patient had an intrathecal pain pump implanted after meeting criteria of chronic intractable pain for greater than 3 months and failing conservative treatments. Patient has committed and been compliant to the treatment plan and all planned follow up care. Since implantation of the intrathecal pain pump, the patient has had decreased pain and been more functional. Oral medications have been reduced including intake of oral opioids. Patient continues to do well with intrathecal therapy with decrease in pain symptoms and increase in functional status. Stopping intrathecal medications can lead to life threatening withdrawal, seizures, cardiac arrest, severe pain, and possible . Pumps that are not refilled at regular intervals can be damages and cause and need for replacement. We continually titrate dose and concentration to optimize pain relief and function. We are limited in concentration for certain drugs to safely deliver medications through the pump and stay within the recommendations from the Polyanalgesic Consensus Committee Guidelines. Depending on dose and concentration these pumps may need to be refilled sooner than 3 months as we titrate.
[2023-06-08 10:46] VITALS: BP 100/80; PULSE 62; RESP 18; O2SAT 96; BMI 33.3
== END | disposition home or self-care (01) ==
PROVIDERS: PCP Emergency Medicine; Visit Provider Nurse Practitioner Family
DX: M51.16 Intervertebral disc disorders with radiculopathy, lumbar region (principal); M96.1 Postlaminectomy syndrome, not elsewhere classified; Z97.8 Presence of other specified devices; Z45.1 Encounter for adjustment and management of infusion pump
CPT/HCPCS: 62368; 99213; G0463

== ENCOUNTER → 2023-06-23 10:40 | Day surgery (SDC) | payer OTHER, SELFPAY ==
[2023-06-23 10:51] VITALS: BP 135/73; PULSE 81; RESP 16; TEMP 36.2; O2SAT 96; BMI 33.3
== END ==
LOC: SC.PAINP 10:41
PROVIDERS: PCP Emergency Medicine; Visit Provider Nurse Anesthetist, Certified Registered
DX: Z53.9 Procedure and treatment not carried out, unspecified reason (principal); M51.16 Intervertebral disc disorders with radiculopathy, lumbar region; Z45.1 Encounter for adjustment and management of infusion pump

== ENCOUNTER 2023-07-07 12:39 | Day surgery (SDC) | payer OTHER, SELFPAY ==
[2023-07-07 12:53] VITALS: BP 150/86; PULSE 74; RESP 16; TEMP 36.5; O2SAT 98; BMI 33.3
[2023-07-07 12:58] VITALS: BP 134/75; PULSE 71; RESP 18; O2SAT 97
[2023-07-07 13:00] VITALS: BP 134/75; PULSE 71; RESP 18; O2SAT 97
--- NOTE | 2023-07-07 13:10 | EXP.PAIN.PRO ---
Procedure Date: 07/07/23 Time: 13:13 Anesthesiologist:: Javier Hernandez MD Complications:: None Pre-procedure Diagnosis:: Degenerative disc disease of lumbar spine with lumbar radiculopathy symptoms and postlaminectomy syndrome lumbar spine Post-procedure Diagnosis:: Same Indications for Procedure:: This patient is a pleasant 62-year-old white male who we are treating for low back pain with lumbar radiculopathy symptoms and postlaminectomy syndrome lumbar spine. 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 We are switching him over to intrathecal bupivacaine. We will refill him today with intrathecal bupivacaine 5 mg per ml. He will have a 7-day bridge bolus. Will bring him back in and start him back at 2.5 mg/day of the intrathecal bupivacaine once it is infusing. He does have antalgic gait. Motor strength of lower extremities is 5/5. There is no gross sensory deficit. Portillo and drug screen are all appropriate. Procedure Details:: Informed consent was obtained and the risks and benefits of the procedure was explained to the patient. The patient was taken to the procedure room. The pump was interrogated. The area over the pump was prepped using ChloraPrep. The pump was accessed with a 22-gauge needle. Approximately 11 mL's of the intrathecal solution was withdrawn and discarded. The pump was then refilled with 20 mL's of intrathecal bupivacaine 5 mg/mL. The pump was interrogated and the infusion was continued at 0.28 mg/day and we will bring the patient back in 7 days to change to 2.5 mg/day.. The patient tolerated the procedure well with no complication. Plan and Disposition:: Will follow-up with this patient in 7 days to change his infusion to 2.5 mg/day.
[2023-07-07 13:12] VITALS: BP 142/77; PULSE 71; RESP 18; O2SAT 98
== END 2023-07-07 13:12 | disposition home or self-care (01) ==
PROVIDERS: PCP Emergency Medicine; Visit Provider Anesthesiology
DX: M51.16 Intervertebral disc disorders with radiculopathy, lumbar region (principal); M96.1 Postlaminectomy syndrome, not elsewhere classified; Z97.8 Presence of other specified devices; Z45.1 Encounter for adjustment and management of infusion pump
CPT/HCPCS: 95991

== ENCOUNTER → 2023-07-24 10:05 | Outpatient (POV) | payer OTHER, SELFPAY ==
--- NOTE | 2023-07-24 10:39 | EXP.PAIN.PRO ---
Procedure Date: 07/24/23 Time: 10:39 Anesthesiologist:: Lisa Werner APRN Complications:: None Pre-procedure Diagnosis:: Degenerative disc disease of lumbar spine with lumbar radiculopathy symptoms, lumbar postlaminectomy syndrome Post-procedure Diagnosis:: Same Indications for Procedure:: Patient is a pleasant 63-year-old male who presents today for intrathecal reprogramming adjustment. We are currently treating the patient for degenerative disc disease of lumbar spine with lumbar radiculopathy symptoms, lumbar postlaminectomy syndrome. Today he rates his pain a 3 out of 10. Patient was recently switched over from his intrathecal medication to bupivacaine 5 mg/mL. Patient is currently at 0.28 mg/day. Patient denies any side effects from this medication. He does state that he has recently been adjusted on his diabetes medication and that he has noticed some mild headache and is unsure if it is the combination of changing medications that cause this. His Portillo has been reviewed and is appropriate. Physical Exam: General: Alert and oriented x3, no acute distress, pleasant and cooperative Lungs: Respirations even and unlabored, symmetrical chest expansion Eyes: PERRL Musculoskeletal: Flexion and extension of lumbar [spine] somewhat guarded secondary to pain, [antalgic gait noted] Neurological: Speech clear, no gross sensory deficit Procedure Details:: Informed consent was obtained and the risk and benefits of the procedure were explained to the patient. Patient was taken to the procedure room where noninvasive monitoring was placed including noninvasive blood pressure cuff and pulse oximeter. Patient's pump was interrogated and was reprogrammed to bupivacaine 0.75 mg/day. The patient tolerated the procedure well with no complications. Plan and Disposition:: Patient tolerated his intrathecal increase with no complications and was discharged neurologically intact. Patient will return to clinic in 1 month for additional pump reprogramming adjustment and reprogramming. We will see the patient back in the clinic at the next intrathecal refill. Patient has been instructed to contact the clinic with any concerns before the next appointment. Dr. Hernandez has reviewed this note and agrees with this plan of care. This note was dictated using voice recognition software and make contain errors or omissions. -- It Is medically necessary for this patient to continue to have their intrathecal pump refilled at regular intervals. This patient had an intrathecal pain pump implanted after meeting criteria of chronic intractable pain for greater than 3 months and failing conservative treatments. Patient has committed and been compliant to the treatment plan and all planned follow up care. Since implantation of the intrathecal pain pump, the patient has had decreased pain and been more functional. Oral medications have been reduced including intake of oral opioids. Patient continues to do well with intrathecal therapy with decrease in pain symptoms and increase in functional status. Stopping intrathecal medications can lead to life threatening withdrawal, seizures, cardiac arrest, severe pain, and possible . Pumps that are not refilled at regular intervals can be damages and cause and need for replacement. We continually titrate dose and concentration to optimize pain relief and function. We are limited in concentration for certain drugs to safely deliver medications through the pump and stay within the recommendations from the Polyanalges[employer] Consensus Committee Guidelines. Depending on dose and concentration these pumps may need to be refilled sooner than 3 months as we titrate.
[2023-07-24 11:30] VITALS: BP 152/90; PULSE 94; RESP 18; O2SAT 98; BMI 30.7
== END | disposition home or self-care (01) ==
PROVIDERS: PCP Emergency Medicine; Visit Provider Nurse Practitioner Family
DX: M51.16 Intervertebral disc disorders with radiculopathy, lumbar region (principal); M96.1 Postlaminectomy syndrome, not elsewhere classified; Z97.8 Presence of other specified devices; Z45.1 Encounter for adjustment and management of infusion pump
CPT/HCPCS: 62368; 99213; G0463

== ENCOUNTER → 2023-08-21 09:58 | Outpatient (POV) | payer OTHER, SELFPAY ==
--- NOTE | 2023-08-21 10:38 | EXP.PAIN.PRO ---
Procedure Date: 08/21/23 Time: 10:38 Anesthesiologist:: Lisa Werner APRN Complications:: None Pre-procedure Diagnosis:: Degenerative disc disease of lumbar spine with lumbar radiculopathy symptoms, lumbar postlaminectomy syndrome Post-procedure Diagnosis:: Same Indications for Procedure:: Patient is a pleasant 63-year-old male who presents today for intrathecal adjustment and reprogram. We are currently treating the patient for degenerative disc disease of lumbar spine with lumbar radiculopathy symptoms, lumbar postlaminectomy syndrome. Today he rates his pain a 4 out of 10. 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 Patient states it was unrelated to the pump and that he just merely tripped over an item in his shop. Patient denies any significant injury or concern for fracture. He is currently managed with intrathecal bupivacaine 5 mg/mL with a daily dose of 0.75 mg/day. Patient denies any side effects from this. He is asking for an additional adjustment today. Patient does state that he has been experiencing an occasional numbness into the left side of his jaw. Patient states its only happened give or take maybe 2 times over the last month or 2. Patient states he is not sure if it has anything to do with his diabetes. Patient does see Dr. Chelsea malone in [place] and states that he did forget to mention this at his last visit. Patient is scheduled for a follow-up appointment with his senior network administrator next month and his v[employer] in September. His Portillo has been reviewed and is appropriate. Physical Exam: General: Alert and oriented x3, no acute distress, pleasant and cooperative Lungs: Respirations even and unlabored, symmetrical chest expansion Eyes: PERRL Musculoskeletal: Flexion and extension of lumbar [spine] somewhat guarded secondary to pain, [antalgic gait noted] Neurological: Speech clear, no gross sensory deficit Procedure Details:: Informed consent was obtained and the risk and benefits of the procedure were explained to the patient. Patient was taken to the procedure room where noninvasive monitoring was placed including noninvasive blood pressure cuff and pulse oximeter. Patient's pump was interrogated and was reprogrammed to bupivacaine 0.825 mg/day. The patient tolerated the procedure well with no complications. Plan and Disposition:: Patient tolerated his intrathecal increase with no complications and was discharged neurologically intact. I have discussed with the patient regarding his occasional jaw numbness and recommended that he talk with his senior network administrator, [employer] and primary care regarding this symptom. I have also recommended that it may be beneficial to keep a journal of the symptoms to see if there are any extenuating circumstances when this occurs. We will follow-up with this at future visits. Patient will return to clinic in 1 month for reevaluation of symptoms and plan of care. We will see the patient back in the clinic at the next intrathecal refill. Patient has been instructed to contact the clinic with any concerns before the next appointment. Dr. Hernandez has reviewed this note and agrees with this plan of care. This note was dictated using voice recognition software and make contain errors or omissions. -- It Is medically necessary for this patient to continue to have their intrathecal pump refilled at regular intervals. This patient had an intrathecal pain pump implanted after meeting criteria of chronic intractable pain for greater than 3 months and failing conservative treatments. Patient has committed and been compliant to the treatment plan and all planned follow up care. Since implantation of the intrathecal pain pump, the patient has had decreased pain and been more functional. Oral medications have been reduced including intake of oral opioids. Patient continues to do well with intrathecal therapy with decrease in pain symptoms and increase in functional status. Stopping intrathecal medications can lead to life threatening withdrawal, seizures, cardiac arrest, severe pain, and possible . Pumps that are not refilled at regular intervals can be damages and cause and need for replacement. We continually titrate dose and concentration to optimize pain relief and function. We are limited in concentration for certain drugs to safely deliver medications through the pump and stay within the recommendations from the Polyanalgesic Consensus Committee Guidelines. Depending on dose and concentration these pumps may need to be refilled sooner than 3 months as we titrate.
[2023-08-21 12:04] VITALS: RESP 18; BMI 30.7
== END | disposition home or self-care (01) ==
PROVIDERS: PCP Emergency Medicine; Visit Provider Nurse Practitioner Family
DX: M51.16 Intervertebral disc disorders with radiculopathy, lumbar region (principal); M96.1 Postlaminectomy syndrome, not elsewhere classified; Z97.8 Presence of other specified devices; Z45.1 Encounter for adjustment and management of infusion pump
CPT/HCPCS: 62368; 99213; G0463

== ENCOUNTER 2023-09-18 09:32 | Outpatient (POV) | payer OTHER, SELFPAY ==
[2023-09-18 09:38] VITALS: BP 137/71; PULSE 82; RESP 18; O2SAT 98; BMI 34.1
--- NOTE | 2023-09-18 09:43 | P.PCN_ITS ---
Procedure Date: 09/18/23 Time: 09:43 Anesthesiologist:: Lisa Werner APRN Complications:: None Pre-procedure Diagnosis:: Degenerative disc disease of lumbar spine with lumbar radiculopathy symptoms, lumbar postlaminectomy syndrome Post-procedure Diagnosis:: Same Indications for Procedure:: Patient is a pleasant 63-year-old male who presents today for intrathecal adjustment and reprogram. He rates his pain today a 3 out of 10. He denies any new injury or trauma. He does state that when he is up and working his pain level significantly increases and does feel like he could use additional adjustment in his pump. Patient is currently managed with bupivacaine 5 mg/mL with a daily dose of 0.825 mg/day. He denies any side effects to this medication. 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 He does also state that he is lost 25 pounds overall. 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 His Portillo has been reviewed and is appropriate. Physical Exam: General: Alert and oriented x3, no acute distress, pleasant and cooperative Lungs: Respirations even and unlabored, symmetrical chest expansion Eyes: PERRL Musculoskeletal: Flexion and extension of lumbar [spine] somewhat guarded secondary to pain, [antalgic gait noted] Neurological: Speech clear, no gross sensory deficit Procedure Details:: Informed consent was obtained and the risk and benefits of the procedure were explained to the patient. Patient was taken to the procedure room where noninvasive monitoring was placed including noninvasive blood pressure cuff and pulse oximeter. Patient's pump was interrogated and was reprogrammed to bupivacaine 0.91 mg/day. The patient tolerated the procedure well with no complications. Plan and Disposition:: Patient tolerated his intrathecal increase with no complications and was discharged neurologically intact. Patient will return to clinic in 1 month for reevaluation of symptoms and plan of care. Patient has been instructed to contact the clinic with any concerns before the next appointment. Dr. Hernandez has reviewed this note and agrees with this plan of care. This note was dictated using voice recognition software and make contain errors or omissions.
== END 2023-09-18 23:59 | disposition home or self-care (01) ==
PROVIDERS: PCP Emergency Medicine; Visit Provider Nurse Practitioner Family
DX: M51.16 Intervertebral disc disorders with radiculopathy, lumbar region (principal); M96.1 Postlaminectomy syndrome, not elsewhere classified; Z97.8 Presence of other specified devices; Z45.1 Encounter for adjustment and management of infusion pump
CPT/HCPCS: 62368; 99212; G0463

== ENCOUNTER 2023-10-10 13:21 | Day surgery (SDC) | payer OTHER, SELFPAY ==
[2023-10-10 14:07] VITALS: BP 150/82; PULSE 85; RESP 18; O2SAT 92; BMI 29.9
[2023-10-10 14:35] VITALS: BP 121/74; PULSE 81; RESP 18; O2SAT 95
[2023-10-10 14:37] VITALS: BP 121/74; PULSE 81; RESP 18; O2SAT 94
[2023-10-10 15:02] VITALS: BP 130/78; PULSE 81; RESP 18; O2SAT 98
--- NOTE | 2023-10-10 15:06 | EXP.PAIN.PRO ---
Procedure Date: 10/10/23 Time: 14:45 Anesthesiologist:: Chuy Maher CRNA Complications:: None Pre-procedure Diagnosis:: Degenerative disc lumbar spine multilevels. Lumbar radiculopathy. Lumbar postlaminectomy syndrome. Post-procedure Diagnosis:: Same. Indications for Procedure:: Patient is a very pleasant 63-year-old male comes our clinic today for intrathecal pain pump interrogation and refill. Patient is currently being managed with bupivacaine 5 mg at 0.9100 mg/day. He is doing very well with his current settings. Not requesting any changes. He does not report any side effects or complications. He rates his pain 4/10. Procedure Details:: Details of the procedure explained to the patient. The patient taken procedure room placed in the supine position. The area over the pump was cleansed using chlorhexidine's cleansing solution. Using fluoroscopy guidance the pump was accessed with ease using a 22-gauge inch and half needle. 5 mL solution was withdrawn discarded appropriately. The pump was then filled with 20 cc of a solution containing bupivacaine 5 mg/mL. The rate will continue at 0.9100 milligrams per day. Patient tolerated procedure without difficulty. There are no complications Plan and Disposition:: Patient was discharged without incident.
== END 2023-10-10 15:00 | disposition home or self-care (01) ==
LOC: SC.PAINP 13:22
PROVIDERS: PCP Emergency Medicine; Visit Provider Nurse Anesthetist, Certified Registered
DX: M51.16 Intervertebral disc disorders with radiculopathy, lumbar region (principal); M96.1 Postlaminectomy syndrome, not elsewhere classified; Z97.8 Presence of other specified devices; Z45.1 Encounter for adjustment and management of infusion pump
CPT/HCPCS: 95991

== ENCOUNTER 2023-12-12 11:11 | Day surgery (SDC) | payer OTHER, SELFPAY ==
[2023-12-12 11:30] VITALS: BP 137/80; PULSE 82; RESP 18; O2SAT 98; BMI 28.2
[2023-12-12 11:34] VITALS: BP 133/79; PULSE 78; RESP 18; O2SAT 98
[2023-12-12 11:36] VITALS: BP 133/79; PULSE 78; RESP 18; O2SAT 98
--- NOTE | 2023-12-12 11:42 | EXP.PAIN.PRO ---
Procedure Date: 12/12/23 Time: 11:30 Anesthesiologist:: Chuy Maher CRNA Complications:: None Pre-procedure Diagnosis:: Degenerative disc lumbar spine pathology. Lumbar radiculopathy. Lumbar postlaminectomy syndrome. Post-procedure Diagnosis:: Same. Indications for Procedure:: Patient is a very pleasant 63-year-old male comes our clinic today for intrathecal pain pump interrogation refill. He is currently being managed with bupivacaine 5 mg/mL at 0.9100 milligrams per day. He is requesting slight increase due to pain in the low back area with increased activity. He has been doing a lot of yard work. I will increase in by 10% today. Procedure Details:: Details of the procedure explained the patient. The patient taken procedure and placed in the supine position on the fluoroscopy table. They over the pump was cleansed using chlorhexidine's cleansing solution. The pump was interrogated. The pump was accessed with ease using a 22-gauge inch and half needle using fluoroscopy guidance. 8 mL of solution was withdrawn discarded appropriate. The pump was then filled with 20 cc of solution containing bupivacaine 5 mg/mL. The new rate will be 1.0 mg/day. Patient tolerated procedure without difficulty. No complications. Plan and Disposition:: Patient was discharged without incident.
[2023-12-12 11:52] VITALS: BP 138/83; PULSE 75; RESP 16; O2SAT 98
== END 2023-12-12 11:53 | disposition home or self-care (01) ==
PROVIDERS: PCP Emergency Medicine; Visit Provider Nurse Anesthetist, Certified Registered
DX: M51.16 Intervertebral disc disorders with radiculopathy, lumbar region (principal); M96.1 Postlaminectomy syndrome, not elsewhere classified; Z97.8 Presence of other specified devices; Z45.1 Encounter for adjustment and management of infusion pump
CPT/HCPCS: 62370

== ENCOUNTER 2024-02-06 09:39 | Day surgery (SDC) | payer OTHER, MEDICARE, SELFPAY ==
[2024-02-06 10:04] VITALS: BP 131/79; PULSE 83; RESP 16; O2SAT 98; BMI 27.4
[2024-02-06 10:30] VITALS: BP 140/78; PULSE 79; RESP 18; O2SAT 97
--- NOTE | 2024-02-06 10:34 | EXP.PAIN.PRO ---
Procedure Date: 02/06/24 Time: 10:30 Anesthesiologist:: Chuy Maher CRNA Complications:: None Pre-procedure Diagnosis:: Degenerative disc lumbar spine multilevels. Lumbar radiculopathy. Lumbar postlaminectomy syndrome. Post-procedure Diagnosis:: Same. Indications for Procedure:: Patient is a very pleasant 63-year-old male comes our clinic today for intrathecal pain pump interrogation and refill. Patient currently being managed with bupivacaine 5 mg/mL at a rate of 1.0 mg/day. He is doing very well at his current settings. He does not request any changes. He does not report any side effects or complications. Patient is awake alert [place] x 3. No acute distress. Flexion-extension lumbar spine normal. Deep tendon reflexes upper and lower extremities normal. Motor strength upper and lower extremities normal. There is no gross sensory deficit. Gait is normal. Procedure Details:: Details of the procedure explained to the patient. The patient taken procedure and placed in the supine position on fluoroscopy table. The area over the pump was cleansed using chlorhexidine as a cleansing solution. The pump was interrogated. The pump was accessed with ease using fluoroscopy guidance with with a 22-gauge inch and half needle. 8 mL of solution was withdrawn discarded appropriate. The pump was then filled with 20 cc of solution containing bupivacaine 5 mg/mL. Pump was filled incrementally using fluoroscopy and a lateral position. Patient tolerated procedure without difficulty. No complications. Plan and Disposition:: Patient was discharged without incident.
[2024-02-06 10:38] VITALS: BP 142/81; PULSE 77; RESP 18; O2SAT 98
[2024-02-06 10:45] VITALS: BP 140/78; PULSE 79; RESP 18; O2SAT 97
== END 2024-02-06 10:38 | disposition home or self-care (01) ==
PROVIDERS: PCP Emergency Medicine; Visit Provider Nurse Anesthetist, Certified Registered
DX: M96.1 Postlaminectomy syndrome, not elsewhere classified; M51.36 Other intervertebral disc degeneration, lumbar region
CPT/HCPCS: 95991

== ENCOUNTER 2024-04-02 08:19 | Day surgery (SDC) | payer OTHER, SELFPAY ==
[2024-04-02 08:47] VITALS: BP 160/84; PULSE 76; RESP 16; TEMP 36.6; O2SAT 98; BMI 26.6
[2024-04-02 09:38] VITALS: PULSE 72; RESP 18; O2SAT 98
[2024-04-02 09:40] VITALS: PULSE 72; RESP 18; O2SAT 98
[2024-04-02 09:53] VITALS: BP 141/87; PULSE 73; RESP 16; TEMP 36.6; O2SAT 98
--- NOTE | 2024-04-02 12:09 | EXP.PAIN.PRO ---
Procedure Date: 04/02/24 Time: 09:30 Anesthesiologist:: Chuy Maher CRNA Complications:: None Pre-procedure Diagnosis:: Degenerative disc lumbar spine multiple levels. Lumbar radiculopathy. Lumbar postlaminectomy syndrome. Post-procedure Diagnosis:: Same. Indications for Procedure:: Patient is a pleasant 63-year-old male comes our clinic today for intrathecal pain pump interrogation refill. Patient is currently being managed with bupivacaine 5 mg/mL at a rate of 1 mg/day. Patient reporting increased pain in his low back as well as bilateral hip and legs. Mostly, during the night. He is questioning whether the bupivacaine alone is going to keep his pain at a level he can live with. We discussed in length the necessity to increase the intrathecal pain pump rate consistently until we find the threshold for pain relief however, no significant numbness in his legs. I will increase him by 10% today. I informed the patient to come back to the clinic in 2 weeks for another 10% increase. And consistently increase every 2 weeks until the threshold is met. This will be up to him in terms of the level of pain that he is having. Patient voices understanding. Procedure Details:: Details of the procedure explained to the patient. The patient taken procedure room placed in the supine position on the fluoroscopy table. The area over the pump was cleansed using chlorhexidine as a cleansing solution. Using fluoroscopy guidance the pump was accessed with ease using a 22-gauge inch and half needle. 8 mL of solution was withdrawn discarded appropriate. The pump was then filled with 20 cc of solution containing bupivacaine 5 mg/mL. The rate will increase by 10%. The new rate will be 1.1 mg/day. Patient tolerated procedure without difficulty. There are no complications. Plan and Disposition:: Patient was discharged without incident.
== END 2024-04-02 09:48 | disposition home or self-care (01) ==
LOC: SC.PAINP 08:20
PROVIDERS: PCP Emergency Medicine; Visit Provider Nurse Anesthetist, Certified Registered
DX: M51.16 Intervertebral disc disorders with radiculopathy, lumbar region (principal); M96.1 Postlaminectomy syndrome, not elsewhere classified
CPT/HCPCS: 95991

== ENCOUNTER 2024-04-17 09:02 | Outpatient (POV) | payer OTHER, SELFPAY ==
[2024-04-17 09:51] VITALS: BP 137/67; PULSE 78; RESP 18; O2SAT 100; BMI 26.6
--- NOTE | 2024-04-17 10:30 | P.PCN_ITS ---
Procedure Date: 04/17/24 Time: 10:16 Anesthesiologist:: Lisa Werner APRN Complications:: None Pre-procedure Diagnosis:: Degenerative disc disease of lumbar spine with lumbar radiculopathy symptoms, lumbar postlaminectomy syndrome, right sacroiliitis Post-procedure Diagnosis:: same Indications for Procedure:: Patient is a pleasant 63-year-old male who presents today for intrathecal adjustment and reprogram as well as worsening pain in his right hip. He does rate his pain a 6 out of 10. He denies any new trauma or injury. He does state the pain is a aching sensation that is worse with certain positions such as prolonged sitting. He states that it is aggravated by driving or mowing. He does state that the pain is starting to interfere with his ability perform activities of daily living. Patient does state as of right now it still doing somewhat okay. Patient is currently managed with bupivacaine 5 mg/mL with a daily dose of 1.1 mg/day. He denies any side effects from this medication. He does state that his bolus device his stopped working. His Portillo has been revie wed and is appropriate. Physical Exam: General: Alert and oriented x3, no acute distress, pleasant and cooperative Lungs: Respirations even and unlabored, symmetrical chest expansion Eyes: PERRL Musculoskeletal: Flexion and extension of lumbar [spine] somewhat guarded secondary to pain, [antalgic gait noted] point tenderness along right SI with positive right Lima's, Norma's, Gaenslen's, compression and distraction exam Neurological: Speech clear, no gross sensory deficit Procedure Details:: Informed consent was obtained and the risk and benefits of the procedure were explained to the patient. Patient was taken to the procedure room where noninvasive monitoring was placed including noninvasive blood pressure cuff and pulse oximeter. Patient's pump was interrogated and was reprogrammed to bupivacaine 1.26 mg/day. The patient tolerated the procedure well with no complications. Plan and Disposition:: Patient tolerated his intrathecal increase with no complications and was discharged neurologically intact. I did discuss with the patient that he does have symptoms consistent with right SI inflammation and did discuss that he may benefit from an SI injection. At this time he would like to wait. Patient was also counseled unfortunately we cannot replace he has device due to the company no longer being an operation. Patient acknowledges understanding. Patient will return to clinic for his next intrathecal refill and reprogram. We will see the patient back in the clinic at the next intrathecal refill. Patient has been instructed to contact the clinic with any concerns before the next appointment. Dr. Hernandez has reviewed this note and agrees with this plan of care. This note was dictated using voice recognition software and make contain errors or omissions. -- It Is medically necessary for this patient to continue to have their intrathecal pump refilled at regular intervals. This patient had an intrathecal pain pump implanted after meeting criteria of chronic intractable pain for greater than 3 months and failing conservative treatments. Patient has committed and been compliant to the treatment plan and all planned follow up care. Since implantation of the intrathecal pain pump, the patient has had decreased pain and been more functional. Oral medications have been reduced including intake of oral opioids. Patient continues to do well with intrathecal therapy with decrease in pain symptoms and increase in functional status. Stopping intrathecal medications can lead to life threatening withdrawal, seizures, cardiac arrest, severe pain, and possible . Pumps that are not refilled at regular intervals can be damages and cause and need for replacement. We continually titrate dose and concentration to optimize pain relief and function. We are limited in concentration for certain drugs to safely deliver medications through the pump and stay within the recommendations from the Polyanalgesic Consensus Committee Guidelines. Depending on dose and concentration these pumps may need to be refilled sooner than 3 months as we titrate.
== END 2024-04-17 23:59 | disposition home or self-care (01) ==
PROVIDERS: PCP Emergency Medicine; Visit Provider Nurse Practitioner Family
DX: M51.16 Intervertebral disc disorders with radiculopathy, lumbar region (principal); M96.1 Postlaminectomy syndrome, not elsewhere classified; M46.1 Sacroiliitis, not elsewhere classified; Z73.89 Other problems related to life management difficulty
CPT/HCPCS: 62368; 99212; 99213; G0463

== ENCOUNTER 2024-05-01 10:35 | Outpatient (POV) | payer OTHER, SELFPAY ==
[2024-05-01 10:56] VITALS: BP 148/81; PULSE 91; RESP 98; O2SAT 91; BMI 25.8
--- NOTE | 2024-05-01 11:19 | EXP.PAIN.PRO ---
Procedure Date: 05/01/24 Time: 11:19 Anesthesiologist:: Lisa Werner APRN Complications:: None Pre-procedure Diagnosis:: Degenerative disc disease of the spine lumbar radiculopathy symptoms Post-procedure Diagnosis:: Same Indications for Procedure:: Patient is a pleasant 63-year-old male who presents today for intrathecal adjustment and reprogram. Today he rates his pain a 3 out of 10. Patient states he feels like he could just use additional adjustment of his pump. He is currently managed with bupivacaine 5 mg/mL with a daily dose of 1.26 mg/day. He denies any side effects from this medication. He does state that he still has some numbness in his leg however this is nothing new and did not notice any worsening symptoms with his last increase. His Portillo has been reviewed and is appropriate. Physical Exam: General: Alert and oriented x3, no acute distress, pleasant and cooperative Lungs: Respirations even and unlabored, symmetrical chest expansion Eyes: PERRL Musculoskeletal: Flexion and extension of lumbar [spine] somewhat guarded secondary to pain, [antalgic gait noted] Neurological: Speech clear, no gross sensory deficit Procedure Details:: Informed consent was obtained and the risk and benefits of the procedure were explained to the patient. Patient was taken to the procedure room where noninvasive monitoring was placed including noninvasive blood pressure cuff and pulse oximeter. Patient's pump was interrogated and was reprogrammed to bupivacaine 1.512 mg/day. The patient tolerated the procedure well with no complications. Plan and Disposition:: Patient tolerated his intrathecal increase and reprogram with no complications and was discharged neurologically intact. Patient will return to clinic on or before his next intrathecal refill. We will see the patient back in the clinic at the next intrathecal refill. Patient has been instructed to contact the clinic with any concerns before the next appointment. Dr. Hernandez has reviewed this note and agrees with this plan of care. This note was dictated using voice recognition software and make contain errors or omissions. -- It Is medically necessary for this patient to continue to have their intrathecal pump refilled at regular intervals. This patient had an intrathecal pain pump implanted after meeting criteria of chronic intractable pain for greater than 3 months and failing conservative treatments. Patient has committed and been compliant to the treatment plan and all planned follow up care. Since implantation of the intrathecal pain pump, the patient has had decreased pain and been more functional. Oral medications have been reduced including intake of oral opioids. Patient continues to do well with intrathecal therapy with decrease in pain symptoms and increase in functional status. Stopping intrathecal medications can lead to life threatening withdrawal, seizures, cardiac arrest, severe pain, and possible . Pumps that are not refilled at regular intervals can be damages and cause and need for replacement. We continually titrate dose and concentration to optimize pain relief and function. We are limited in concentration for certain drugs to safely deliver medications through the pump and stay within the recommendations from the [employer] Consensus [employer] Guidelines. Depending on dose and concentration these pumps may need to be refilled sooner than 3 months as we titrate.
== END 2024-05-01 23:59 | disposition home or self-care (01) ==
PROVIDERS: PCP Emergency Medicine; Visit Provider Nurse Practitioner Family
DX: M51.16 Intervertebral disc disorders with radiculopathy, lumbar region (principal)
CPT/HCPCS: 62368; 99212; 99213; G0463

== ENCOUNTER 2024-05-14 08:31 | Day surgery (SDC) | payer OTHER, MEDICARE, SELFPAY ==
[2024-05-14 08:56] VITALS: BP 130/72; PULSE 90; RESP 16; TEMP 36.6; O2SAT 98; BMI 26.6
--- NOTE | 2024-05-14 10:10 | PC.NURSE ---
upon entering pts room to take him to the procedure room, pt reports his glucose has dropped. Pt has a [employer] reader that he uses. Pt is clammy and pale in color. Pt given orange juice and peanut butter crackers. Pt drank 2 orange juices 4oz each and given a pepsi, pt ate 2 saltine cracker and container of peanut butter. Pt given cool rag and feet elevated in recliner. Pt reports his glucose goes up and down on a normal basis. I continued to check on pt frequently. At this time pt reports feeling but better, has good color, no longer clammy. Pt states believes his glucose has returned to normal.
[2024-05-14 10:25] VITALS: BP 114/65; PULSE 97; RESP 18; O2SAT 96
[2024-05-14 10:26] VITALS: BP 114/65; PULSE 75; RESP 18; O2SAT 97
[2024-05-14 10:49] VITALS: BP 111/63; PULSE 75; RESP 16; O2SAT 94
--- NOTE | 2024-05-14 10:50 | P.PCN_ITS ---
Procedure Date: 05/14/24 Time: 10:40 Anesthesiologist:: Chuy Maher CRNA Complications:: None Pre-procedure Diagnosis:: Degenerative disc lumbar spine multilevels. Lumbar radiculopathy. Post-procedure Diagnosis:: Same. Indications for Procedure:: Patient is a very pleasant 63-year-old male who comes our clinic today for intrathecal pain pump interrogation and refill. Patient currently being managed with bupivacaine 5 mg/mL at 1.5120 mg/day. He is doing very well with his current settings. He is not reporting side effects or complications. He is not requesting changes. Patient mentions right leg below the knee pain at times intermittent. Patient is awake alert Purdin x 3. In no acute distress. Flexion-extension lumbar spine somewhat guarded secondary to pain. Deep tendon reflexes upper and lower extremities normal. Motor strength upper and lower extremities normal. There is no gross sensory deficit. Gait is normal. Procedure Details:: Details of the procedure explained to the patient. The patient taken procedure and placed in sitting position. They over the pumps cleansed using chlorhexidine as a cleansing solution. The pump was interrogated. The pump was accessed with ease using a 22-gauge inch and half needle. 8 mL solution was withdrawn discarded appropriate. The pump was then filled with 20 cc of solution containing bupivacaine 5 mg/mL. Patient tolerated procedure without difficulty. No complications. Plan and Disposition:: Patient was discharged without incident.
== END 2024-05-14 10:49 | disposition home or self-care (01) ==
PROVIDERS: PCP Emergency Medicine; Visit Provider Nurse Anesthetist, Certified Registered
DX: M51.16 Intervertebral disc disorders with radiculopathy, lumbar region (principal); Z79.891 Long term (current) use of opiate analgesic
CPT/HCPCS: 95991

== ENCOUNTER 2024-05-20 08:32 | Outpatient (POV) | payer OTHER, SELFPAY ==
[2024-05-20 08:49] VITALS: BP 132/77; PULSE 78; RESP 16; O2SAT 100; BMI 26.6
--- NOTE | 2024-05-20 09:00 | EXP.PAIN.SOA ---
[facility] Disclaimer: The information contained in this section may have been updated after the patient was seen, as this information can be updated by other users. Medical History (Updated 05/20/24 @ 09:02 by Lisa Werner APRN) Tumor Cirrhosis of liver GERD (gastroesophageal reflux disease) HLD (hyperlipidemia) Diabetes mellitus Hypertension Family History Other No significant family history Social History Smoking Status: Never smoker second hand exposure: Yes alcohol intake: never substance use type: denies use current occupational status: other household members: spouse housing: house current occupational exposures/hazards: No caffeine: Yes PM Subjective & Objective Subjective Subjective:: Patient is a pleasant 63-year-old male who presents today for worsening pain. Today he rates his pain a 3 out of 10 however does state with increased activity that it will go to a 10 out of 10. Patient has been dealing with pain in his low back chronically for years and states that the numbness and tingling that radiates down his right leg has been consistent for at least a few months. Patient states that primarily the pain is along the outer side of his right leg from his knee down. Patient does state he also has a drop ankle issue and feels like this might be playing a role as well. He states that he feels like the leg will just randomly give out and causes intense pain and worsening sensations. He does state that it interferes with his ability perform activities of daily living such as cooking and cleaning. Patient is currently managed with a intrathecal pain pump of bupivacaine 5 mg/mL with a daily dose of 1.512 mg/day. He denies any side effects from this medication. His Portillo has been reviewed and is appropriate. Review of Systems: General: No recent weight changes, no fever, no sleep disturbances Respiratory: No cough, no shortness of air, no recurring pulmonary infections Cardiovascular/peripheral vascular: No chest pain, no palpitations, no edema, no shortness of breath Gastrointestinal: No new onset incontinence, normal bowel movements reported Genitourinary: No new onset incontinence Musculoskeletal: Low back pain, right leg pain Psychiatric: [Normal mood/affect] Neurological: [Denies weakness in extremities], [denies balance issues] Pain at rest (0-10 scale): 10 Objective Objective:: Physical Exam: General: Alert and oriented x3, no acute distress, pleasant and cooperative Lungs: Respirations even and unlabored, symmetrical chest expansion Eyes: PERRL Musculoskeletal: Flexion and extension of lumbar [spine] somewhat guarded secondary to pain, [antalgic gait noted] positive right leg raise with decreased sensation to light touch and decreased reflexes Neurological: Speech clear, no gross sensory deficit Has patient had previous pain injection?: No Conservative treatment options previously tried: Home exercise plan Length of treatment: Longer than 12 weeks Meds Home Medications and Allergies Home Medications ?Medication ?Instructions ?Recorded ?Confirmed ?Type bisoprolol 10 3 tab PO DAILY bp 09/20/17 05/20/24 History mg-hydrochlorothiazide 6.25 mg tablet duloxetine 60 mg capsule,delayed 60 mg PO DAILY mood 09/20/17 05/20/24 History release metformin 500 mg tablet 1,000 mg PO BID Diabetes 09/20/17 05/20/24 History omeprazole 40 mg capsule,delayed 40 mg PO DAILY GERD 09/20/17 05/20/24 History release clopidogrel 75 mg tablet 75 mg PO DAILY heart 11/27/18 05/20/24 History dulaglutide 1.5 mg/0.5 mL 1.5 mg SQ DAILY Diabetes 09/08/21 05/20/24 History subcutaneous pen injector (Trulicity) lisinopril 20 mg tablet 20 mg PO DAILY . 09/08/21 05/20/24 History pravastatin 80 mg tablet 80 mg PO DAILY . 09/08/21 05/20/24 History ranolazine 500 mg tablet,extended 500 mg PO DAILY . 09/08/21 05/20/24 History release,12 hr insulin glargine 100 unit/mL (3 30 units SQ HS Diabetes 01/18/22 05/20/24 History mL) subcutaneous pen cyclobenzaprine 10 mg tablet 10 mg PO BID PRN Muscle Spasm 90 11/30/22 05/20/24 Rx days #180 tabs gabapentin 800 mg tablet 800 mg PO DAILY NERVE PAIN #90 tabs 11/30/22 05/20/24 Rx New Prescriptions to Start Prescriptions: Allergies Allergy/AdvReac Type Severity Reaction Status Date / Time atorvastatin (From LIPITOR) Allergy Mild Verified 02/06/24 10:05 Assessment and Plan *Assessment and plan (1) Degenerative disc disease, lumbar: Status: Acute Category: Medical Code(s): M51.369 - Other intervertebral disc degeneration, lumbar region without mention of lumbar back pain or lower extremity pain (2) Lumbar radiculopathy: Status: Acute Category: Medical Code(s): M54.16 - Radiculopathy, lumbar region (3) Right leg pain: Status: Acute Category: Medical Code(s): M79.604 - Pain in right leg (4) Lumbar spinal stenosis: Status: Acute Category: Medical Code(s): M48.061 - Spinal stenosis, lumbar region without neurogenic claudication Plan Patient is experiencing worsening pain with numbness and tingling going down into his right lower extremity. Patient did have limited range of motion of his lumbar spine with the positive right leg raise and decreased sensation to light touch and decreased reflexes. I did discuss with patient that I do believe he would benefit from a right transforaminal epidural steroid injection. Risk and benefits were discussed with the patient and he would like to proceed forward with this plan of care. Patient is not on any blood thinners. Patient has tried and failed conservative therapy for this pain that has been going on for longer than 3 months including oral medication, heat and ice, topicals, at home stretching exercise for longer than 12 weeks. Patient will be scheduled for a right transforaminal epidural steroid injection L4-L5 and L5-S1 under fluoroscopy. Patient has been instructed to contact the clinic with any concerns before the next appointment. Dr. Hernandez has reviewed this note and agrees with this plan of care. This note was dictated using voice recognition software and make contain errors or omissions. All injections are used with Lidocaine or Bupivacaine and Depo Medrol.
== END 2024-05-20 23:59 | disposition home or self-care (01) ==
LOC: SC.PAIN 08:33
PROVIDERS: PCP Emergency Medicine; Visit Provider Nurse Practitioner Family
DX: M51.16 Intervertebral disc disorders with radiculopathy, lumbar region (principal); M79.604 Pain in right leg; M48.061 Spinal stenosis, lumbar region without neurogenic claudication; Z73.89 Other problems related to life management difficulty
CPT/HCPCS: 99212; G0463

== ENCOUNTER 2024-06-11 09:28 | Outpatient (POV) | payer OTHER, SELFPAY ==
[2024-06-11 10:00] VITALS: BP 141/75; PULSE 75; RESP 16; O2SAT 98; BMI 25.8
--- NOTE | 2024-06-11 10:07 | A.OFFVIS_ITS ---
[facility] Disclaimer: The information contained in this section may have been updated after the patient was seen, as this information can be updated by other users. Medical History (Updated 05/20/24 @ 09:02 by Lisa Werner APRN) Tumor Cirrhosis of liver GERD (gastroesophageal reflux disease) HLD (hyperlipidemia) Diabetes mellitus Hypertension Family History Other No significant family history Social History Smoking Status: Never smoker second hand exposure: Yes alcohol intake: never substance use type: denies use current occupational status: employed Travel in the last 8 weeks: None household members: spouse housing: house current occupational exposures/hazards: No caffeine: Yes PM Subjective & Objective Subjective Subjective:: Patient is a pleasant 63-year-old male who presents today for worsening pain and insurance denial. Today he rates his pain a 5 out of 10. He does state that the pain will increase significantly later in the day as he has done more activity including walking and standing for prolonged periods. He denies any new falls or injuries. He states that he is still having the same symptoms from our last appointments with constant aching, throbbing sensation in his low back that does radiate down his entire right extremity with numbness and tingling. This has continued for longer than 4 months with no improvement. He has tried conservative treatment including oral medications such as Tylenol, ibuprofen, heat and ice, topicals, at home stretching exercise for longer than 12 weeks.Patient has tried multiple medications in addition to [id number] [place] [facility] as Flexeril, gabapentin, duloxetine, Percocet with no additional relief. Patient continues to state that his leg will randomly give out causing him to stumble. It is interfering with his ability perform activities of daily living such as cooking and cleaning. Patient is currently managed with a intrathecal pain pump of bupivacaine 5 mg/mL with a daily dose of 1.512 mg/day. He denies any side effects from this medication. He also states that he does not feel like he needs any additional adjustment on this dosage. His Portillo has been reviewed and is appropriate. Review of Systems: General: No recent weight changes, no fever, no sleep disturbances Respiratory: No cough, no shortness of air, no recurring pulmonary infections Cardiovascular/peripheral vascular: No chest pain, no palpitations, no edema, no shortness of breath Gastrointestinal: No new onset incontinence, normal bowel movements reported Genitourinary: No new onset incontinence Musculoskeletal: Low back pain, right leg pain Psychiatric: [Normal mood/affect] Neurological: [Denies weakness in extremities], [denies balance issues] Pain at rest (0-10 scale): 5 Objective Objective:: Physical Exam: General: Alert and oriented x3, no acute distress, pleasant and cooperative Lungs: Respirations even and unlabored, symmetrical chest expansion Eyes: PERRL Musculoskeletal: Flexion and extension of lumbar [spine] somewhat guarded secondary to pain, [antalgic gait noted] positive right leg raise with decreased sensation to light touch and decreased reflexes Neurological: Speech clear, no gross sensory deficit FINDINGS: There is normal alignment. Spinal cord ends at the L1 level. T12-L1: Unremarkable. L1-L2: Mild facet hypertrophic change on the left with mild left-sided foraminal narrowing. L2-L3: Degenerative disc disease with bulging disc with a left paracentral disc osteophyte complex. There is facet and ligamentum hypertrophy with canal stenosis and bilateral lateral recess narrowing left greater than right with severe left-sided foraminal narrowing and moderate right foraminal narrowing. There is a small left paracentral herniated disc with inferior extrusion. Endplate osteophytes are present. L3-L4: Degenerative disc disease with bulging disc/disc osteophyte complex with severe facet and ligamentum hypertrophy and with severe canal stenosis along with severe bilateral lateral recess and foraminal narrowing. There is a small central disc protrusion. Postsurgical changes are present at this level with removal of the spinous process of L3. The lamina however does appear to be in place. CT may confirm this finding. Please correlate with patient's surgical history. L4-5: Degenerative disc disease with bulging disc and endplate hypertrophic change with severe facet and ligamentum hypertrophy with severe bilateral foraminal narrowing. Postsurgical changes at L4-5 with at least a partial laminectomy. Bulging disc is noted with a broad-based central and left paracentral disc protrusion/disc osteophyte complex with bilateral lateral recess narrowing and canal stenosis. L5-S1: Mild facet hypertrophic change with moderate right and mild left foraminal narrowing. IMPRESSION: Multilevel lumbar spondylosis with bulging disc and disc protrusions with disc osteophyte complexes. There is disc herniation with inferior extrusion at L2-L3. Canal stenosis lateral recess and foraminal narrowing is present with postsurgical changes at multiple levels. Please see above for detailed description at each level. Please correlate with surgical history. Dictated by: Nasir Wellington MD 02/15/2021 08:37 Nasir Wellington MD in OV 02/15/2021 08:38 Has patient had previous pain injection?: No Conservative treatment options previously tried: Home exercise plan Length of treatment: Longer than 12 weeks Meds Home Medications and Allergies Home Medications ?Medication ?Instructions ?Recorded ?Confirmed ?Type bisoprolol 10 3 tab PO DAILY bp 09/20/17 05/20/24 History mg-hydrochlorothiazide 6.25 mg tablet duloxetine 60 mg capsule,delayed 60 mg PO DAILY mood 09/20/17 05/20/24 History release metformin 500 mg tablet 1,000 mg PO BID Diabetes 09/20/17 05/20/24 History omeprazole 40 mg capsule,delayed 40 mg PO DAILY GERD 09/20/17 05/20/24 History release dulaglutide 1.5 mg/0.5 mL 1.5 mg SQ DAILY Diabetes 09/08/21 05/20/24 History subcutaneous pen injector (Trulicity) lisinopril 20 mg tablet 20 mg PO DAILY . 09/08/21 05/20/24 History pravastatin 80 mg tablet 80 mg PO DAILY . 09/08/21 05/20/24 History ranolazine 500 mg tablet,extended 500 mg PO DAILY . 09/08/21 05/20/24 History release,12 hr insulin glargine 100 unit/mL (3 30 units SQ HS Diabetes 01/18/22 05/20/24 Hist ory mL) subcutaneous pen cyclobenzaprine 10 mg tablet 10 mg PO BID PRN Muscle Spasm 90 11/30/22 05/20/24 Rx days #180 tabs gabapentin 800 mg tablet 800 mg PO DAILY NERVE PAIN #90 tabs 11/30/22 05/20/24 Rx New Prescriptions to Start Prescriptions: Allergies Allergy/AdvReac Type Severity Reaction Status Date / Time atorvastatin (From LIPITOR) Allergy Mild Verified 02/06/24 10:05 Assessment and Plan *Assessment and plan (1) Lumbar spinal stenosis: Status: Acute Category: Medical Code(s): M48.061 - Spinal stenosis, lumbar region without neurogenic claudication (2) Right leg pain: Status: Acute Category: Medical Code(s): M79.604 - Pain in right leg (3) Lumbar radiculopathy: Status: Acute Category: Medical Code(s): M54.16 - Radiculopathy, lumbar region (4) Degenerative disc disease, lumbar: Status: Acute Category: Medical Code(s): M51.369 - Other intervertebral disc degeneration, lumbar region without mention of lumbar back pain or lower extremity pain Plan Patient continues to experience significant pain with numbness and tingling going down into his right lower extremity. He did have limited range of motion of his lumbar spine with the positive right leg raise and decreased sensation to light touch and decreased reflexes. I did again discuss with patient that I do believe he would benefit from a right transforaminal epidural steroid injection. Risk and benefits were discussed with the patient and he would like to proceed forward with this plan of care. Patient is not on any blood thinners other than an 81 mg aspirin. Patient has tried and failed conservative therapy including medications such as Tylenol, ibuprofen, Flexeril, gabapentin, Percocet, heat and ice, topicals, at home stretching exercise for longer than 12 weeks. Patient denies any issues with the left extremity. Patient did have significant findings on his MRI with multilevel degenerative disc disease and significant narrowing/stenosis. patient will be resubmitted for a right transforaminal epidural steroid injection L4-L5 and L5-S1 under fluoroscopy. Patient has been instructed to contact the clinic with any concerns before the next appointment. Dr. Hernandez has reviewed this note and agrees with this plan of care. This note was dictated using voice recognition software and make contain errors or omissions.
== END 2024-06-11 23:59 | disposition home or self-care (01) ==
LOC: SC.PAIN 09:30
PROVIDERS: PCP Emergency Medicine; Visit Provider Nurse Practitioner Family
DX: M48.061 Spinal stenosis, lumbar region without neurogenic claudication (principal); M79.604 Pain in right leg; M51.16 Intervertebral disc disorders with radiculopathy, lumbar region; Z73.89 Other problems related to life management difficulty
CPT/HCPCS: 99212; G0463

== ENCOUNTER 2024-06-28 09:05 | Day surgery (SDC) | payer OTHER, SELFPAY ==
[2024-06-28 09:15] VITALS: BP 126/69; PULSE 75; RESP 16; TEMP 36.8; O2SAT 98; BMI 25.8
--- NOTE | 2024-06-28 09:25 | EXP.PAIN.PRO ---
Procedure Date: 06/28/24 Time: 09:40 Anesthesiologist:: Lisa Werner APRN Complications:: None Pre-procedure Diagnosis:: Degenerative disc disease of lumbar spine with lumbar radiculopathy symptoms Post-procedure Diagnosis:: Same Indications for Procedure:: Patient is a pleasant 63-year-old male who presents today for intrathecal refill and reprogram. Today he rates his pain a 5 out of 10. He denies any new trauma or injury. He is currently managed with bupivacaine 5 mg/mL with a daily dose of 1.512 milligrams per day. He denies any side effects and denies any need for additional adjustment. His Portillo has been reviewed and is appropriate. Physical Exam: General: Alert and oriented x3, no acute distress, pleasant and cooperative Lungs: Respirations even and unlabored, symmetrical chest expansion Eyes: PERRL Musculoskeletal: Flexion and extension of lumbar [spine] somewhat guarded secondary to pain, [antalgic gait noted] Neurological: Speech clear, no gross sensory deficit Procedure Details:: Informed consent was obtained and the risk and benefits of the procedure were explained to the patient. The patient had noninvasive monitoring placed including noninvasive blood pressure cuff and pulse oximeter. Patient's pump was interrogated. The area over the pump was cleansed with chlorhexidine as a cleansing solution. In sterile fashion the pump was accessed with a 22-gauge needle. Approximately 7 mls of the pump solution was removed and discarded appropriately. The pump was then refilled with 20 mL's of bupivacaine 5 mg/mL. The needle was withdrawn and a bandage was placed over the puncture site. The infusion rate was reprogrammed and continued at bupivacaine 1.512 mg/day. The patient tolerated well with no complication. Plan and Disposition:: Patient tolerated his intrathecal refill and reprogram with no complications and was discharged neurologically intact. Patient will return to clinic for his next intrathecal refill date. We will see the patient back in the clinic at the next intrathecal refill. Patient has been instructed to contact the clinic with any concerns before the next appointment. Dr. Hernandez has reviewed this note and agrees with this plan of care. This note was dictated using voice recognition software and make contain errors or omissions. -- It Is medically necessary for this patient to continue to have their intrathecal pump refilled at regular intervals. This patient had an intrathecal pain pump implanted after meeting criteria of chronic intractable pain for greater than 3 months and failing conservative treatments. Patient has committed and been compliant to the treatment plan and all planned follow up care. Since implantation of the intrathecal pain pump, the patient has had decreased pain and been more functional. Oral medications have been reduced including intake of oral opioids. Patient continues to do well with intrathecal therapy with decrease in pain symptoms and increase in functional status. Stopping intrathecal medications can lead to life threatening withdrawal, seizures, cardiac arrest, severe pain, and possible . Pumps that are not refilled at regular intervals can be damages and cause and need for replacement. We continually titrate dose and concentration to optimize pain relief and function. We are limited in concentration for certain drugs to safely deliver medications through the pump and stay within the recommendations from the [employer]ensus [employer] Guidelines. Depending on dose and concentration these pumps may need to be refilled sooner than 3 months as we titrate. A UDS is needed to verify patient's compliance with our office pain contract. This is ordered based off specific treatments related to chronic pain with the potential to abuse certain medications.
[2024-06-28 09:29] VITALS: BP 108/66; PULSE 72; RESP 18; O2SAT 99
[2024-06-28 09:32] VITALS: BP 108/66; PULSE 71; RESP 18; O2SAT 99
[2024-06-28 09:44] VITALS: BP 121/69; PULSE 75; RESP 16; O2SAT 100
[2024-06-28 09:53] VITALS: BMI 25.7
== END 2024-06-28 09:44 | disposition home or self-care (01) ==
PROVIDERS: PCP Emergency Medicine; Visit Provider Nurse Practitioner Family
DX: M51.16 Intervertebral disc disorders with radiculopathy, lumbar region (principal)
CPT/HCPCS: 62370

== ENCOUNTER 2024-08-09 09:13 | Day surgery (SDC) | payer OTHER, MEDICARE, SELFPAY ==
--- NOTE | 2024-08-09 09:15 | P.PCN_ITS ---
Procedure Date: 08/09/24 Time: 09:47 Anesthesiologist:: Lisa Werner APRN Complications:: None Pre-procedure Diagnosis:: Degenerative disc disease of the lumbar spine with lumbar radiculopathy symptoms Post-procedure Diagnosis:: Same Indications for Procedure:: Patient is a pleasant 64-year-old male who presents today for intrathecal refill and reprogram. Today he rates his pain a 4 out of 10. He denies any new injury or falls from her last appointment. He does state that he has been having a little bit more increased pain in his requesting a small increase on his pump. Patient has still been trying to get some injection therapy however has had quite a bit of difficulty with his insurance. He does state that he just received another letter in the mail regarding this. Patient is currently managed with bupivacaine 5 mg/mL with a daily dose of 1.512 mg/day. He denies any side effects from this medication. His Portillo has been reviewed and is appropriate. Physical Exam: General: Alert and oriented x3, no acute distress, pleasant and cooperative Lungs: Respirations even and unlabored, symmetrical chest expansion Eyes: PERRL Musculoskeletal: Flexion and extension of lumbar [spine] somewhat guarded secondary to pain, [antalgic gait noted] Neurological: Speech clear, no gross sensory deficit Procedure Details:: Informed consent was obtained and the risk and benefits of the procedure were explained to the patient. The patient had noninvasive monitoring placed including noninvasive blood pressure cuff and pulse oximeter. Patient's pump was interrogated. The area over the pump was cleansed with chlorhexidine as a cleansing solution. In sterile fashion the pump was accessed with a 22-gauge needle. Approximately 7.5 mls of the pump solution was removed and discarded appropriately. The pump was then refilled with 20 mL's of bupivacaine 5 mg/mL. The needle was withdrawn and a bandage was placed over the puncture site. The infusion rate was reprogrammed and increased 15% to bupivacaine 1.7388 mg/day. The patient tolerated well with no complication. Plan and Disposition:: Patient tolerated the procedure well with no complications and was discharged neurologically intact. Patient will return to clinic on or before their next intrathecal refill date. We will see the patient back in the clinic at the next intrathecal refill. Patient has been instructed to contact the clinic with any concerns before the next appointment. Dr. Hernandez has reviewed this note and agrees with this plan of care. This note was dictated using voice recognition software and make contain errors or omissions. -- It Is medically necessary for this patient to continue to have their intrathecal pump refilled at regular intervals. This patient had an intrathecal pain pump i mplanted after meeting criteria of chronic intractable pain for greater than 3 months and failing conservative treatments. Patient has committed and been compliant to the treatment plan and all planned follow up care. Since implantation of the intrathecal pain pump, the patient has had decreased pain and been more functional. Oral medications have been reduced including intake of oral opioids. Patient continues to do well with intrathecal therapy with decrease in pain symptoms and increase in functional status. Stopping intrathecal medications can lead to life threatening withdrawal, seizures, cardiac arrest, severe pain, and possible . Pumps that are not refilled at regular intervals can be damages and cause and need for replacement. We continually titrate dose and concentration to optimize pain relief and function. We are limited in concentration for certain drugs to safely deliver medications through the pump and stay within the recommendations from the Polyanalges[employer] Consensus Committee Guidelines. Depending on dose and concentration these pumps may need to be refilled sooner than 3 months as we titrate. A UDS is needed to verify patient's compliance with our office pain contract. This is ordered based off specific treatments related to chronic pain with the potential to abuse certain medications.
[2024-08-09 09:22] VITALS: BP 135/79; PULSE 75; RESP 16; TEMP 36.8; O2SAT 99; BMI 26.6
[2024-08-09 09:41] VITALS: BP 145/80; PULSE 72; RESP 18; O2SAT 97
[2024-08-09 09:42] VITALS: BP 145/80; PULSE 72; RESP 18; O2SAT 97
[2024-08-09 09:55] VITALS: BP 132/77; PULSE 73; RESP 16; O2SAT 99
== END 2024-08-09 09:55 | disposition home or self-care (01) ==
PROVIDERS: PCP Emergency Medicine; Visit Provider Nurse Practitioner Family
DX: M51.16 Intervertebral disc disorders with radiculopathy, lumbar region (principal)
CPT/HCPCS: 62370

== ENCOUNTER 2024-09-10 08:35 | Day surgery (SDC) | payer MEDICARE, SELFPAY ==
[2024-09-10 08:47] VITALS: BP 123/71; PULSE 61; RESP 16; TEMP 36.4; O2SAT 100; BMI 26.6
[2024-09-10 09:01] VITALS: BP 137/78; PULSE 71; RESP 18; O2SAT 98
[2024-09-10 09:02] VITALS: BP 137/78; PULSE 69; RESP 18; O2SAT 99
[2024-09-10 09:10] VITALS: BP 142/71; PULSE 71; RESP 16; O2SAT 99
--- NOTE | 2024-09-10 09:21 | MR_ITS ---
FINAL REPORT TECHNIQUE: Multiplanar MR imaging of the abdomen was performed without and with contrast. CLINICAL HISTORY: PANCREATIC MASS PROTOCOL/DISEASE OF PANCREAS NAUSEA COMPARISON: 03/07/2023 FINDINGS: There is severe magnetic susceptibility artifact centered in the anterior left upper quadrant but obscures other portions of the abdomen. There is also significant motion artifact. There is a small cyst in the left hepatic lobe which appears benign. Liver is otherwise unremarkable. There is mild splenomegaly measuring up to 14 cm. Subcentimeter lesions are seen arising from the left kidney which are likely cysts. Kidneys are otherwise unremarkable. There is no evidence of biliary ductal dilatation. Gallbladder is unremarkable. Pancreas demonstrates a septated cystic mass within the uncinate process measuring 11 x 11 x 8 mm. There is no solid enhancing component identified. Septations are smooth and thin without significant enhancement. Lesion was likely present on prior exam but not well-visualized due to artifact arising from the left upper quadrant. Pancreatic duct is normal. IMPRESSION: Stable, mildly septated mass arising from the uncinate process measuring up to 11 mm, favor benign. Recommend 12-month follow-up MRI. Stable, mild splenomegaly. Reviewed, Interpreted and Dictated by Liz Samuel MD Transcribed by Fabienne Wang Authenticated and [facility]
[2024-09-10] MEDS: SODIUM CHLORIDE 0.9% 10ML SYR (RAD ONLY) 10 ML IV (11:22)
[2024-09-10] MEDS: GADOTERIDOL INJ 20ML SYRINGE 15 ML IV (11:22)
[2024-09-10] MEDS: SODIUM CHLORIDE 0.9% 50ML BAG 20 ML IV (11:22)
[2024-09-10 12:16] VITALS: BP 118/70; PULSE 70; RESP 18; O2SAT 97
[2024-09-10 12:26] VITALS: BP 118/70; PULSE 70; RESP 18; O2SAT 97
--- NOTE | 2024-09-10 13:11 | EXP.PAIN.PRO ---
Procedure Date: 09/10/24 Time: 09:00 Anesthesiologist:: Chuy Maher CRNA Complications:: None Pre-procedure Diagnosis:: Degenerative disc lumbar spine multilevels. Lumbar radiculopathy. Lumbar postlaminectomy syndrome. Lumbar facet arthropathy. Lumbar spondylosis. Post-procedure Diagnosis:: Same. Indications for Procedure:: Patient very pleasant 64-year-old male who comes our clinic today for intrathecal pain pump to be emptied prior to MRI. Patient will be refilled post MRI. Procedure Details:: Details of procedure explained the patient. The patient taken procedure room placed in the supine position. The area over the pump was cleansed using chlorhexidine as a cleansing solution. The pump was accessed with ease using fluoroscopy guidance. 9 mL solution was withdrawn. Patient returned from MRI and pump was accessed with ease using fluoroscopy guidance. Pump was filled with previous medication bupivacaine 5 mg/mL under fluoroscopy guidance. Patient tolerated procedure without difficulty. No complications. Plan and Disposition:: Patient was discharged without incident.
== END 2024-09-10 09:10 | disposition home or self-care (01) ==
PROVIDERS: PCP Emergency Medicine; Visit Provider Nurse Anesthetist, Certified Registered
DX: M51.16 Intervertebral disc disorders with radiculopathy, lumbar region (principal); M96.1 Postlaminectomy syndrome, not elsewhere classified; M47.26 Other spondylosis with radiculopathy, lumbar region
CPT/HCPCS: 74183; 76376; 95991; A9576

== ENCOUNTER 2024-09-20 08:26 | Day surgery (SDC) | payer MEDICARE, OTHER, SELFPAY ==
[2024-09-20 08:40] VITALS: BP 131/72; PULSE 68; RESP 16; TEMP 36.6; O2SAT 98; BMI 26.6
--- NOTE | 2024-09-20 08:44 | P.PCN_ITS ---
Procedure Date: 09/20/24 Time: 08:55 Anesthesiologist:: Lisa Werner APRN Complications:: None Pre-procedure Diagnosis:: Degenerative disc disease of lumbar spine with lumbar radiculopathy symptoms, chronic pain syndrome Post-procedure Diagnosis:: Same Indications for Procedure:: Patient is a pleasant 64-year-old male who presents today for intrathecal refill and reprogram. He rates his pain today as a 4 out of 10. He denies any new trauma or injury.He is currently managed with bupivacaine 5 mg/mL with a daily dose of 1.7388 mg/day. He denies any side effects from this medication.His Portillo has been reviewed and is appropriate. Physical Exam: General: Alert and oriented x3, no acute distress, pleasant and cooperative Lungs: Respirations even and unlabored, symmetrical chest expansion Eyes: PERRL Musculoskeletal: Flexion and extension of lumbar [spine] somewhat guarded secon holley to pain, [antalgic gait noted] Neurological: Speech clear, no gross sensory deficit Procedure Details:: Informed consent was obtained and the risk and benefits of the procedure were explained to the patient. The patient had noninvasive monitoring placed including noninvasive blood pressure cuff and pulse oximeter. Patient's pump was interrogated. The area over the pump was cleansed with chlorhexidine as a cleansing solution. In sterile fashion the pump was accessed with a 22-gauge needle. Approximately 5 mls of the pump solution was removed and discarded appropriately. The pump was then refilled with 20 mL's of bupivacaine 10 mg/mL. The needle was withdrawn and a bandage was placed over the puncture site. The infusion rate was reprogrammed and continued at its current dosage. The patient tolerated well with no complication. Plan and Disposition:: Patient tolerated the procedure well with no complications and was discharged neurologically intact. Patient did have a concentration changed today to 10 mg/mL. Patient was counseled that there will be a bridge bolus to get the old medication completely through his catheter system. Patient acknowledges understanding. Patient will return to clinic on or before their next intrathecal refill date. We will see the patient back in the clinic at the next intrathecal refill. Patient has been instructed to contact the clinic with any concerns before the next appointment. Dr. Hernandez has reviewed this note and agrees with this plan of care. This note was dictated using voice recognition software and make contain errors or omissions. -- It Is medically necessary for this patient to continue to have their intrathecal pump refilled at regular intervals. This patient had an intrathecal pain pump implanted after meeting criteria of chronic intractable pain for greater than 3 months and failing conservative treatments. Patient has committed and been compliant to the treatment plan and all planned follow up care. Since implantation of the intrathecal pain pump, the patient has had decreased pain and been more functional. Oral medications have been reduced including intake of oral opioids. Patient continues to do well with intrathecal therapy with decrease in pain symptoms and increase in functional status. Stopping intrathecal medications can lead to life threatening withdrawal, seizures, cardiac arrest, severe pain, and possible . Pumps that are not refilled at regular intervals can be damages and cause and need for replacement. We continually titrate dose and concentration to optimize pain relief and function. We are limited in concentration for certain drugs to safely deliver medications through the pump and stay within the recommendations from the Polyanalgesic Consensus Committee Guidelines. Depending on dose and concentration these pumps may need to be refilled sooner than 3 months as we titrate. A UDS is needed to verify patient's compliance with our office pain contract. This is ordered based off specific treatments related to chronic pain with the potential to abuse certain medications.
[2024-09-20 08:53] VITALS: BP 141/83; PULSE 70; RESP 18; O2SAT 98
[2024-09-20 08:55] VITALS: BP 141/83; PULSE 70; RESP 18; O2SAT 98
[2024-09-20 09:08] VITALS: BP 130/75; PULSE 69; RESP 16; O2SAT 97
== END 2024-09-20 09:09 | disposition home or self-care (01) ==
PROVIDERS: PCP Emergency Medicine; Visit Provider Nurse Practitioner Family
DX: M51.16 Intervertebral disc disorders with radiculopathy, lumbar region (principal); G89.4 Chronic pain syndrome
CPT/HCPCS: 62370

== ENCOUNTER 2024-12-06 08:30 | Day surgery (SDC) | payer OTHER, MEDICARE, SELFPAY ==
[2024-12-06 08:42] VITALS: BP 114/77; PULSE 72; RESP 16; O2SAT 99; BMI 25.8
--- NOTE | 2024-12-06 08:42 | EXP.PM.HP ---
History of Present Illness *Admission Date: 12/06/24 *Reason for visit:: Intrathecal refill; DDD *History of present illness: Same [facility] Disclaimer: The information contained in this section may have been updated after the patient was seen, as this information can be updated by other users. Medical History Tumor Cirrhosis of liver GERD (gastroesophageal reflux disease) HLD (hyperlipidemia) Diabetes mellitus Hypertension Family History Other No significant family history Social History Smoking Status: Never smoker second hand exposure: Yes alcohol intake: never substance use type: denies use current occupational status: retired Travel in the last 8 weeks?: None household members: spouse housing: house current occupational exposures/hazards: No caffeine: Yes Have you lived/traveled outside [place] in past 30 days?: No Contact w/someone who lives/traveled outside [place] past 30 days?: No Exposure to someone with infectious disease in past 14 days?: No Do you have a fever (greater than 100.4 F or 38 C)?: No Have you tested positive for COVID-19?: No Exposed to someone with COVID-19 in past 14 days?: No Do you have a sore throat?: No Do you have a cough?: No Do you have any weakness?: No Do you have any diarrhea?: No Are you experiencing any unusual bleeding?: No Do you have any muscle aches/pain?: No Do you have any abdominal pain?: No Are you experiencing loss of taste or smell?: No Other Medical History Have you received the Flu Vaccine for this season: No Have you received the Pneumonia Vaccine: No Review of Systems Review of Systems Review of systems:: pertinent systems reviewed and negative unless documented below Review of systems (narrative): Review of Systems: General: No recent weight changes, no fever, no sleep disturbances Respiratory: No cough, no shortness of air, no recurring pulmonary infections Cardiovascular/peripheral vascular: No chest pain, no palpitations, no edema, no shortness of breath Gastrointestinal: No new onset incontinence, normal bowel movements reported Genitourinary: No new onset incontinence Musculoskeletal: Chronic back pain Psychiatric: [Normal mood/affect] Neurological: [Denies weakness in extremities], [denies balance issues] Meds Home Medications and Allergies Home Medications ?Medication ?Instructions ?Recorded ?Confirmed ?Type bisoprolol 10 3 tab PO DAILY bp 09/20/17 12/06/24 History mg-hydrochlorothiazide 6.25 mg tablet duloxetine 60 mg capsule,delayed 60 mg PO DAILY mood 09/20/17 12/06/24 History release metformin 500 mg tablet 1,000 mg PO BID Diabetes 09/20/17 12/06/24 History omeprazole 40 mg capsule,delayed 40 mg PO DAILY GERD 09/20/17 12/06/24 History release dulaglutide 1.5 mg/0.5 mL 1.5 mg SQ DAILY Diabetes 09/08/21 12/06/24 History subcutaneous pen injector (Trulicity) lisinopril 20 mg tablet 20 mg PO DAILY . 09/08/21 12/06/24 History pravastatin 80 mg tablet 80 mg PO DAILY . 09/08/21 12/06/24 History ranolazine 500 mg tablet,extended 500 mg PO DAILY . 09/08/21 12/06/24 History release,12 hr insulin glargine 100 unit/mL (3 30 units SQ HS Diabetes 01/18/22 12/06/24 History mL) subcutaneous pen cyclobenzaprine 10 mg tablet 10 mg PO BID PRN Muscle Spasm 90 11/30/22 12/06/24 Rx days #180 tabs gabapentin 800 mg tablet 800 mg PO DAILY NERVE PAIN #90 tabs 11/30/22 12/06/24 Rx New Prescriptions to Start Prescriptions: Allergies Allergy/AdvReac Type Severity Reaction Status Date / Time atorvastatin (From LIPITOR) Allergy Mild Verified 02/06/24 10:05 Exam *Routine HEENT Exam Head: Present normocephalic and atraumatic Eye: Present PERRL ENT: Present mucous membranes moist *Routine Neck Exam Neck: Present supple *Routine Respiratory Exam Respiratory: Present CTA bilaterally *Routine Cardiovascular Exam Cardiovascular: Present RRR *Routine Abdominal Exam Abdominal: Present soft *Routine Rectal Exam Rectal:: deferred *Routine Genitalia Exam Genitalia:: normal male Routine Back/Spine/Pelvis Exam Back/Spine: Present pain with flexion *Routine Skin Exam Skin: Present intact and warm *Routine Neurological Exam Neurological: Present alert and oriented X3 Routine Psychiatric Exam Psychiatric: Present normal affect and normal thought process Assessment and Plan *Assessment and plan (1) Lumbar radiculopathy: Status: Acute Category: Medical Code(s): M54.16 - Radiculopathy, lumbar region (2) Degenerative disc disease, lumbar: Status: Acute Category: Medical Code(s): M51.369 - Other intervertebral disc degeneration, lumbar region without mention of lumbar back pain or lower extremity pain Plan Patient has been instructed to contact the clinic with any concerns before the next appointment. Dr. Hernandez has reviewed this note and agrees with this plan of care. This note was dictated using voice recognition software and make contain errors or omissions. All injections are used with Lidocaine, Bupivacaine and dexamethasone. Occasionally urine drug screen is needed to verify patient's compliance with our office pain contract. This is ordered based off specific treatments related to chronic pain with the potential to abuse certain medications.
--- NOTE | 2024-12-06 08:44 | EXP.PAIN.PRO ---
Procedure Date: 12/06/24 Time: 08:51 Anesthesiologist:: Lisa Werner APRN Complications:: None Pre-procedure Diagnosis:: Degenerative disc disease of lumbar spine with lumbar radiculopathy symptoms, lumbar spinal stenosis Post-procedure Diagnosis:: Same Indications for Procedure:: Patient is a pleasant 64-year-old male who presents today for intrathecal refill. Today he rates his pain a 4 out of 10. He denies any new trauma or injury. He is does state overall he is doing really well and denies any problems with his pump. He does state that he feels like the dosage is working well.Patient is currently managed with bupivacaine 10 mg/mL with a daily dose of 1.7388 mg/day. He denies any side effects. His Portillo has been reviewed and is appropriate. Physical Exam: General: Alert and oriented x3, no acute distress, pleasant and cooperative Lungs: Respirations even and unlabored, symmetrical chest expansion Eyes: PERRL Musculoskeletal: Flexion and extension of lumbar [spine] somewhat guarded secondary to pain, [antalgic gait noted] Neurological: Speech clear, no gross sensory deficit Procedure Details:: Informed consent was obtained and the risk and benefits of the procedure were explained to the patient. The patient had noninvasive monitoring placed including noninvasive blood pressure cuff and pulse oximeter. Patient's pump was interrogated. The area over the pump was cleansed with chlorhexidine as a cleansing solution. In sterile fashion the pump was accessed with a 22-gauge needle. Approximately 6.6 mls of the pump solution was removed and discarded appropriately. The pump was then refilled with 20 mL's of lidocaine 10 mg/mL. The needle was withdrawn and a bandage was placed over the puncture site. The infusion rate was reprogrammed and continued at its current dosage. The patient tolerated well with no complication. Plan and Disposition:: Patient tolerated the procedure well with no complications and was discharged neurologically intact. Patient will return to clinic on or before their next intrathecal refill date. We will see the patient back in the clinic at the next intrathecal refill. Patient has been instructed to contact the clinic with any concerns before the next appointment. Dr. Hernandez has reviewed this note and agrees with this plan of care. This note was dictated using voice recognition software and make contain errors or omissions. -- It Is medically necessary for this patient to continue to have their intrathecal pump refilled at regular intervals. This patient had an intrathecal pain pump implanted after meeting criteria of chronic intractable pain for greater than 3 months and failing conservative treatments. Patient has committed and been compliant to the treatment plan and all planned follow up care. Since implantation of the intrathecal pain pump, the patient has had decreased pain and been more functional. Oral medications have been reduced including intake of oral opioids. Patient continues to do well with intrathecal therapy with decrease in pain symptoms and increase in functional status. Stopping intrathecal medications can lead to life threatening withdrawal, seizures, cardiac arrest, severe pain, and possible . Pumps that are not refilled at regular intervals can be damages and cause and need for replacement. We continually titrate dose and concentration to optimize pain relief and function. We are limited in concentration for certain drugs to safely deliver medications through the pump and stay within the recommendations from the Polyanalges[employer] Consensus Committee Guidelines. Depending on dose and concentration these pumps may need to be refilled sooner than 3 months as we titrate. A UDS is needed to verify patient's compliance with our office pain contract. This is ordered based off specific treatments related to chronic pain with the potential to abuse certain medications.
[2024-12-06 08:45] VITALS: BP 124/74; PULSE 74; RESP 18; O2SAT 98
[2024-12-06 08:58] VITALS: BP 119/71; PULSE 69; RESP 16; O2SAT 100
== END 2024-12-06 08:58 | disposition home or self-care (01) ==
PROVIDERS: PCP Emergency Medicine; Visit Provider Nurse Practitioner Family
DX: Z45.1 Encounter for adjustment and management of infusion pump (principal); M51.16 Intervertebral disc disorders with radiculopathy, lumbar region; M48.061 Spinal stenosis, lumbar region without neurogenic claudication; K74.60 Unspecified cirrhosis of liver; K21.9 Gastro-esophageal reflux disease without esophagitis; E78.5 Hyperlipidemia, unspecified; E11.9 Type 2 diabetes mellitus without complications; I10 Essential (primary) hypertension; Z79.899 Other long term (current) drug therapy; Z79.85 Long-term (current) use of injectable non-insulin antidiabetic drugs; Z79.84 Long term (current) use of oral hypoglycemic drugs; Z79.4 Long term (current) use of insulin; Z88.8 Allergy status to other drugs, medicaments and biological substances
CPT/HCPCS: 62370

== ENCOUNTER 2025-02-14 09:11 | Day surgery (SDC) | payer OTHER, MEDICARE, SELFPAY ==
[2025-02-14 09:25] VITALS: BP 127/72; PULSE 75; RESP 18; O2SAT 99; BMI 25.8
--- NOTE | 2025-02-14 09:28 | EXP.PM.HP ---
History of Present Illness *Admission Date: 02/14/25 *Reason for visit:: Intrathecal refill; DDD *History of present illness: Same [facility] Disclaimer: The information contained in this section may have been updated after the patient was seen, as this information can be updated by other users. Medical History Tumor Cirrhosis of liver GERD (gastroesophageal reflux disease) HLD (hyperlipidemia) Diabetes mellitus Hypertension Family History Other No significant family history Social History (Reviewed 02/14/25 @ 09: by Katlin Noriega RN) Smoking Status: Never smoker second hand exposure: Yes alcohol intake: never substance use type: denies use current occupational status: retired Travel in the last 8 weeks?: None household members: spouse housing: house current occupational exposures/hazards: No caffeine: Yes Have you lived/traveled outside [place] in past 30 days?: No Contact w/someone who lives/traveled outside [place] past 30 days?: No Exposure to someone with infectious disease in past 14 days?: No Do you have a fever (greater than 100.4 F or 38 C)?: No Have you tested positive for COVID-19?: No Exposed to someone with COVID-19 in past 14 days?: No Do you have a sore throat?: No Do you have a cough?: No Do you have any weakness?: No Do you have any diarrhea?: No Are you experiencing any unusual bleeding?: No Do you have any muscle aches/pain?: No Do you have any abdominal pain?: No Are you experiencing loss of taste or smell?: No Other Medical History Have you received the Flu Vaccine for this season: No Have you received the Pneumonia Vaccine: No Meds Home Medications and Allergies Home Medications ?Medication ?Instructions ?Recorded ?Confirmed ?Type bisoprolol 10 3 tab PO DAILY bp 09/20/17 12/06/24 History mg-hydrochlorothiazide 6.25 mg tablet duloxetine 60 mg capsule,delayed 60 mg PO DAILY mood 09/20/17 12/06/24 History release metformin 500 mg tablet 1,000 mg PO BID Diabetes 09/20/17 12/06/24 History omeprazole 40 mg capsule,delayed 40 mg PO DAILY GERD 09/20/17 12/06/24 History release dulaglutide 1.5 mg/0.5 mL 1.5 mg SQ DAILY Diabetes 09/08/21 12/06/24 History subcutaneous pen injector (Trulicity) lisinopril 20 mg tablet 20 mg PO DAILY . 09/08/21 12/06/24 History pravastatin 80 mg tablet 80 mg PO DAILY . 09/08/21 12/06/24 History ranolazine 500 mg tablet,extended 500 mg PO DAILY . 09/08/21 12/06/24 History release,12 hr insulin glargine 100 unit/mL (3 30 units SQ HS Diabetes 01/18/22 12/06/24 History mL) subcutaneous pen cyclobenzaprine 10 mg tablet 10 mg PO BID PRN Muscle Spasm 90 11/30/22 12/06/24 Rx days #180 tabs gabapentin 800 mg tablet 800 mg PO DAILY NERVE PAIN #90 tabs 11/30/22 12/06/24 Rx New Prescriptions to Start Prescriptions: Allergies Allergy/AdvReac Type Severity Reaction Status Date / Time atorvastatin (From LIPITOR) Allergy Mild Verified 02/06/24 10:05 Exam *Routine HEENT Exam Head: Present normocephalic and atraumatic Eye: Present PERRL ENT: Present mucous membranes moist *Routine Neck Exam Neck: Present supple *Routine Respiratory Exam Respiratory: Present CTA bilaterally *Routine Cardiovascular Exam Cardiovascular: Present RRR *Routine Abdominal Exam Abdominal: Present soft *Routine Rectal Exam Rectal:: deferred *Routine Genitalia Exam Genitalia:: deferred Routine Back/Spine/Pelvis Exam Back/Spine: Present pain with flexion *Routine Skin Exam Skin: Present intact and warm *Routine Neurological Exam Neurological: Present alert and oriented X3
--- NOTE | 2025-02-14 09:29 | P.PCN_ITS ---
Procedure Date: 02/14/25 Time: 09:45 Anesthesiologist:: Lisa Werner APRN Complications:: None Pre-procedure Diagnosis:: Degenerative disc disease of lumbar spine with lumbar radiculopathy symptoms, chronic back pain Post-procedure Diagnosis:: Same Indications for Procedure:: Patient is a pleasant 64-year-old male who presents today for intrathecal refill and reprogram. He rates his pain a 5 out of 10. Patient denies any new falls or injuries. He is still currently managed with bupivacaine 10 mg/mL with a daily dose of 1.7388 mg/day. He denies any side effects. His Portillo has been reviewed and is appropriate. Physical Exam: General: Alert and oriented x3, no acute distress, pleasant and cooperative Lungs: Respirations even and unlabored, symmetrical chest expansion Eyes: PERRL Musculoskeletal: Flexion and extension of lumbar [spine] somewhat guarded secondary to pain, [antalgic gait noted] Neurological: Speech clear, no gross sensory deficit Procedure Details:: Informed consent was obtained and the risk and benefits of the procedure were explained to the patient. The patient had noninvasive monitoring placed including noninvasive blood pressure cuff and pulse oximeter. Patient's pump was interrogated. The area over the pump was cleansed with chlorhexidine as a cleansing solution. In sterile fashion the pump was accessed with a 22-gauge needle. Approximately 8.2 mls of the pump solution was removed and discarded appropriately. The pump was then refilled with 20 mL's of bupivacaine 10 mg/mL. The needle was withdrawn and a bandage was placed over the puncture site. The infusion rate was reprogrammed and continued at its current dosage. The patient tolerated well with no complication. Plan and Disposition:: Patient tolerated the procedure well with no complications and was discharged neurologically intact. Patient will return to clinic on or before their next intrathecal refill date. We will see the patient back in the clinic at the next intrathecal refill. Patient has been instructed to contact the clinic with any concerns before the next appointment. Dr. Hernandez has reviewed this note and agrees with this plan of care. This note was dictated using voice recognition software and make contain errors or omissions. -- It Is medically necessary for this patient to continue to have their intrathecal pump refilled at regular intervals. This patient had an intrathecal pain pump implanted after meeting criteria of chronic intractable pain for greater than 3 months and failing conservative treatments. Patient has committed and been compliant to the treatment plan and all planned follow up care. Since implantation of the intrathecal pain pump, the patient has had decreased pain and been more functional. Oral medications have been reduced including intake of oral opioids. Patient continues to do well with intrathecal therapy with decrease in pain symptoms and increase in functional status. Stopping intrathecal medications can lead to life threatening withdrawal, seizures, cardiac arrest, severe pain, and possible . Pumps that are not refilled at regular intervals can be damages and cause and need for replacement. We continu ally titrate dose and concentration to optimize pain relief and function. We are limited in concentration for certain drugs to safely deliver medications through the pump and stay within the recommendations from the Polyanalges[employer] Consensus Committee Guidelines. Depending on dose and concentration these pumps may need to be refilled sooner than 3 months as we titrate. A UDS is needed to verify patient's compliance with our office pain contract. This is ordered based off specific treatments related to chronic pain with the potential to abuse certain medications.
[2025-02-14 09:41] VITALS: BP 127/72; PULSE 71; RESP 18; O2SAT 99
[2025-02-14 09:49] VITALS: BP 140/68; PULSE 69; RESP 18; O2SAT 98
== END 2025-02-14 09:49 | disposition home or self-care (01) ==
PROVIDERS: PCP Emergency Medicine; Visit Provider Nurse Practitioner Family
DX: Z45.1 Encounter for adjustment and management of infusion pump (principal); M51.16 Intervertebral disc disorders with radiculopathy, lumbar region; G89.29 Other chronic pain; E11.9 Type 2 diabetes mellitus without complications; K21.9 Gastro-esophageal reflux disease without esophagitis; E78.5 Hyperlipidemia, unspecified; I10 Essential (primary) hypertension; Z88.8 Allergy status to other drugs, medicaments and biological substances; Z79.84 Long term (current) use of oral hypoglycemic drugs; Z79.4 Long term (current) use of insulin; Z79.899 Other long term (current) drug therapy
CPT/HCPCS: 62370